=== PATIENT | male | born 1970 | race African-American/Black ===

== ENCOUNTER 2018-09-25 14:28 | Emergency (ER) | payer MEDICAID ==
[~2018-09-25] VITALS: Ht 177.8 cm; Wt 70.8 kg
--- NOTE | 2018-09-25 14:40 | NUR ---
Pt called to triage, pt not in waiting room
--- NOTE | 2018-09-25 15:15 | NUR ---
Pt called to triage, pt not in waiting room
[2018-09-25 15:58] VITALS: BP 126/82
[2018-09-25] MEDS ORDERED: CEFTRIAXONE 1 G VIAL ONE (16:28)
[2018-09-25] MEDS ORDERED: LIDOCAINE /MPF 1% VIAL 5 ML VIAL ONE (16:28)
[2018-09-25] MEDS ORDERED: CEFTRIAXONE 1 G VIAL IM ONE (16:30)
--- NOTE | 2018-09-25 16:34 | NUR ---
Patient discharged to home in stable condition. Written and verbal after care instructions given. Patient verbalizes understanding of instruction.
== END 2018-09-25 16:37 | disposition home or self-care (01) ==
LOC: ER 14:35
DX: S51.811D Laceration without foreign body of right forearm, subsequent encounter (principal); L03.113 Cellulitis of right upper limb; Z59.0 Homelessness; W17.89XD Other fall from one level to another, subsequent encounter
CPT/HCPCS: 96372; 99283; J0696; J3490

== ENCOUNTER 2019-02-11 05:11 | Emergency (ER) | payer MEDICAID ==
[~2019-02-11] VITALS: Ht 188 cm; Wt 81.6 kg
--- NOTE | 2019-02-11 05:40 | NUR ---
PT BIB SELF TO ER BED 7 C/O OF CONSTIPATION FOR 1x WEEK. PT STATES THAT 5 DAYS AGO, HE WAS AT [facility] AND HE HAS BEEN STRAINING AND HE "FEELS LIKE A WORM IS ALIVE" IN HIS RECTUM. PATIENT HAS RED TISSUE PROTRUDING FROM HIS RECTUM. PATIENT STATES THAT IT IS PAINFUL. NO SOB. BREATHING EVENLY AND UNLABORED.
--- NOTE | 2019-02-11 06:05 | NUR ---
Patient eloped from facility. ER MD notified.
[2019-05-14] MEDS ORDERED: PIPE3.379 IV (12:52)
[2019-05-14] MEDS ORDERED: LACT-209 GT (12:52)
[2019-05-14] MEDS ORDERED: VANC750P9 IV (12:52)
[2019-05-14] MEDS ORDERED: ASPI-605 PO (12:52)
[2019-05-14] MEDS ORDERED: ATOR20TA PO (12:52)
== END 2019-02-11 06:24 | disposition left against medical advice (07) ==
LOC: ER 05:13
DX: Z75.3 Unavailability and inaccessibility of health-care facilities (principal)

== ENCOUNTER 2019-02-14 19:30 | Emergency (ER) | payer MEDICAID ==
[~2019-02-14] VITALS: Ht 193 cm; Wt 80.7 kg
--- NOTE | 2019-02-14 19:50 | NUR ---
RECTAL BLEEDING X SEVERAL WKS, SEEN AT [facility] FOR TAPE WORM UNABLE TO FILL RX FOR ANTIBIOTIC, NOW FEELS RECTUM PROTRUDING. PT AAOX4, VSS. RR EVEN & UNLABORED. DENIES ANY OTHER DISCOMFORT. PT SEEN & EVAL'D BY DR. BOWEN.
--- NOTE | 2019-02-14 20:08 | NUR ---
DR. BOWEN POURED SUGAR ON PT'S PROLAPSED RECTUM, PT DELORIS WELL.
[2019-02-14] MEDS ORDERED: IV NS 0.9% 1,000 ML BAG IV ONE (20:30)
[2019-02-14] MEDS ORDERED: MORPHINE SULFATE INJ 10 MG/ML DISP.SYRIN IV ONE (20:30)
[2019-02-14] MEDS ORDERED: ONDANSETRON HCL/PF 4 MG/2 ML VIAL IV ONE (20:30)
[2019-02-14] MEDS ORDERED: MORPHINE SULFATE INJ 4 MG/ML DISP.SYRIN ONE (20:34)
[2019-02-14] MEDS ORDERED: ONDANSETRON HCL/PF 4 MG/2 ML VIAL ONE (20:34)
[2019-02-14 20:36] LABS: BASOPHILS % (AUTO) 0.4 % (0.0-2.0); EOSINOPHILS % (AUTO) 0.6 % (0.0-6.0); HEMATOCRIT 33 % (39-51); HEMOGLOBIN 10.7 g/dL (13.5-17.5); LYMPHOCYTES # (AUTO) 1.1 /CMM (0.8-4.8); LYMPHOCYTES % (AUTO) 12.7 % (20.0-44.0); MEAN CORPUSCULAR HGB CONC 33 g/dl (31.0-36.0); MEAN CORPUSCULAR VOLUME 84 fL (80-96); MONOCYTES # (AUTO) 0.6 /CMM (0.1-1.30); MONOCYTES % (AUTO) 7.1 % (2.0-12.0); NEUTROPHILS # (AUTO) 7.2 /CMM (1.8-8.9); NEUTROPHILS % (AUTO) 79.2 % (43.0-81.0); PLATELET COUNT (AUTO) 294 /CMM (150-450); RED BLOOD CELL COUNT(AUTO) 3.88 MIL/uL (4.5-6.0); WHITE BLOOD COUNT (AUTO) 9.1 K/uL (4.3-11.0)
--- NOTE | 2019-02-14 20:38 | NUR ---
MEDICATED FOR PAIN PER ERMD ORDER, PT DELORIS WELL.
[2019-02-14 20:43] LABS: CALCIUM, SERUM 8.6 mg/dL (8.5-10.1); CREATININE 1.4 mg/dL (0.6-1.3); POTASSIUM 3.9 mmol/L (3.5-5.1)
[2019-02-14 20:49] LABS: ALBUMIN 2.8 g/dL (3.4-5.0); BILIRUBIN,DIRECT 0.1 mg/dL (0.0-0.2); BILIRUBIN,TOTAL 0.3 mg/dL (0.2-1.0); TOTAL PROTEIN, SERUM 6.3 g/dL (6.4-8.2)
[2019-02-14] MEDS ORDERED: LEVOFLOXACIN 750 MG /D5W 150ML PIGGYBACK IV ONE (22:00)
[2019-02-14] MEDS ORDERED: LEVOFLOXACIN 750 MG /D5W 150ML 150 ML IV ONE (22:01)
--- NOTE | 2019-02-14 22:11 | NUR ---
PT ASLEEP, EASILY AWAKEN BY VERBAL STIMULI. PT STABLE, RECTAL PAIN 5/10, DELORIS @ THIS TIME. WILL CONT TO MONITOR.
[2019-02-14 22:12] VITALS: BP 118/83
--- NOTE | 2019-02-14 23:32 | NUR ---
TRANSFER INFO: PT ACCEPTED BY DR RUTLEDGE AT [facility] TO ER. ENNIS FOR REPORT [phone] BLS ETA TBD TRIP #[id number]
--- NOTE | 2019-02-14 23:38 | NUR ---
[facility]#[id number]
--- NOTE | 2019-02-15 00:06 | NUR ---
REPORT GIVEN TO ROEBRT ENNIS FOR CONTINUATION OF CARE.
--- NOTE | 2019-02-15 00:54 | NUR ---
AMBULANCE [facility]INTER AT [id number]
--- NOTE | 2019-02-15 02:18 | NUR ---
SKYLER AT BEDSIDE FOR TRANSPORT TO [facility].
== END 2019-02-15 02:20 | disposition short-term general hospital (02) ==
LOC: ER 19:34
DX: K62.3 Rectal prolapse (principal); K62.89 Other specified diseases of anus and rectum; D64.9 Anemia, unspecified; N28.9 Disorder of kidney and ureter, unspecified; E88.09 Other disorders of plasma-protein metabolism, not elsewhere classified
CPT/HCPCS: 36415; 74176; 80048; 80076; 83605; 83690; 85025; 85730; 87040 ×2; 87081; 96365; 96375; 99285; J1956; J2270; J2405; J7030

== ENCOUNTER 2019-04-24 09:08 | Emergency (ER) | payer MEDICAID ==
[~2019-04-24] VITALS: Ht 182.9 cm; Wt 83.9 kg
[2019-04-24 09:38] VITALS: BP 134/77
--- NOTE | 2019-04-24 10:04 | NUR ---
PATIENT A/OX4, SEEN BY DR. CALERO, PATIENT CLEARED FOR DISCHARGE, Patient given written and verbal discharge instructions. Patient verbalizes understanding of instructions. Patient is ambulatory with steady gait. Refuses offer of group home placement. Patient given list of available shelters in surrounding area. Patient refused to sign paperworks and homeless waiver, witnessed by another nurse. Provided food, clothes and tap card.
--- NOTE | 2019-04-24 11:59 | NUR ---
ARJUN GILLILAND PHONE#[phone]
[2019-05-14] MEDS ORDERED: ATOR20TA PO (12:52)
[2019-05-14] MEDS ORDERED: LACT-209 GT (12:52)
[2019-05-14] MEDS ORDERED: PIPE3.379 IV (12:52)
[2019-05-14] MEDS ORDERED: ASPI-605 PO (12:52)
[2019-05-14] MEDS ORDERED: VANC750P9 IV (12:52)
== END 2019-04-24 10:08 | disposition home or self-care (01) ==
LOC: EDBD → ER 09:08 → MERGE 09:08 → ER 10:08
DX: M54.9 Dorsalgia, unspecified (principal); G89.29 Other chronic pain; Z59.0 Homelessness

== ENCOUNTER 2019-04-24 11:59 | Inpatient (IN) | payer MEDICAID ==
[~2019-04-24] VITALS: Ht 182.9 cm; Wt 71.7 kg
--- NOTE | 2019-04-24 11:59 | NUR ---
UNABLE TO AMBULATE/DISCHARGE, pt was d/c earlier, back to bed 12, -sob, nad notd, pt on monitor, vss
--- NOTE | 2019-04-24 12:02 | NUR ---
ATTEMPTED TO D/C PATIENT, PROVIDED WITH CANE BUT WAS UNABLE TO AMBULATE. A WALKER WAS PROVIDED INSTEAD.
--- NOTE | 2019-04-24 12:07 | NUR ---
EVEN WITH THE WALKER, HE WAS NOT ABLE TO AMBULATE, DR CALERO INFORMED AN DECIDED TO ADMIT HIM FOR PLACEMENT/REHAB
[2019-04-24 12:26] LABS: BASOPHILS # (AUTO) 0.1 /CMM (0.0-0.2); BASOPHILS % (AUTO) 0.5 % (0.0-2.0); EOSINOPHILS % (AUTO) 0.1 % (0.0-6.0); HEMATOCRIT 42 % (39-51); HEMOGLOBIN 13.5 g/dL (13.5-17.5); LYMPHOCYTES # (AUTO) 0.6 /CMM (0.8-4.8); LYMPHOCYTES % (AUTO) 4.1 % (20.0-44.0); MEAN CORPUSCULAR HGB CONC 32 g/dl (31.0-36.0); MEAN CORPUSCULAR VOLUME 86 fL (80-96); MONOCYTES # (AUTO) 0.7 /CMM (0.1-1.30); MONOCYTES % (AUTO) 5.2 % (2.0-12.0); NEUTROPHILS # (AUTO) 12.5 /CMM (1.8-8.9); NEUTROPHILS % (AUTO) 90.1 % (43.0-81.0); PLATELET COUNT (AUTO) 356 /CMM (150-450); WHITE BLOOD COUNT (AUTO) 13.8 K/uL (4.3-11.0)
[2019-04-24 12:35] LABS: CREATININE 1.3 mg/dL (0.6-1.3); POTASSIUM 4.2 mmol/L (3.5-5.1)
[2019-04-24 12:36] LABS: CALCIUM, SERUM 9.3 mg/dL (8.5-10.1)
[2019-04-24 12:41] LABS: ALBUMIN 3.3 g/dL (3.4-5.0); BILIRUBIN,DIRECT 0.1 mg/dL (0.0-0.2); BILIRUBIN,TOTAL 0.5 mg/dL (0.2-1.0); TOTAL PROTEIN, SERUM 7.8 g/dL (6.4-8.2)
--- NOTE | 2019-04-24 12:44 | NUR ---
CALLED DAVID P[facility] IMELDA HUGHES
--- NOTE | 2019-04-24 13:55 | NUR ---
report given to henry rucker for bright pt will be transported to 2nd floor
[2019-04-24 14:20] VITALS: BP 131/97
--- NOTE | 2019-04-24 14:20 | NUR ---
RECEIVED PATIENT FROM ER VIA RIVANHOE. PATIENT IS A/OX3-4, ABLE TO MAKE NEEDS KNOWN. NOT IN ANY FORM OF DISTRESS, NO SOB, DENIED PAIN OR DISCOMFORT AT THIS TIME. WAS ABLE TO SLIDE AND ROLL HIMSELF FROM BED TO THE GURNEY. UNABLE TO AMBULATE DUE TO WEAKNESS. LEFT UPPER AND LOWER EXTREMITIES SEVERE WEAKNESS, AND LEFT FACIAL DROOP NOTED AT BASELINE. PER PATIENT, HE HAD A STROKE BUT CANT REMEMBER THE EXACT TIME, LEFT SIDED DEFICIT NOTED. PATIENT SPEECH IS CLEAR. NO DIFFICULTY IN SWALLOWING, PATIENT ATE EGG SANDWICHES AND DRANK JUICE IN THE EMERGENCY ROOM. SKIN ASSESSMENT DONE: MULTIPLE SCAR,SCAB, AND BRUISES; SKIN ABRASION AND BRUISE NOTED ON LEFT HIPS. BELONGINGS CHECKED, AND NOTED ON THE BELONGINGS FORM. SITUATED PATIENT IN THE ROOM AND INSTRUCTED TO USE THE CALL LIGHT IF ASSISTANCE IS NEEDED. NO IV ACCESS NOTED. KEPT PATIENT SAFE AND COMFORTABLE. BED IN LOW/LOCKED POSITION, SDIERAILS UPX2, CALL LIGHT IN REACH. WILL CONT TO MONITOR ACCORDINGLY.
[2019-04-24] MEDS ORDERED: Z GUARD REMEDY 2 OZ OINT TP PRN (15:30)
[2019-04-24] MEDS ORDERED: ONDANSETRON HCL/PF 4 MG/2 ML VIAL IVP PRN (15:30)
[2019-04-24 16:00] VITALS: BP 105/72
--- NOTE | 2019-04-24 16:46 | NUR ---
rn notes: Family contact number Jose Luis (Mother) [phone]
--- NOTE | 2019-04-24 16:48 | NUR ---
Dr Alvarado at bedside assessing the patient.
[2019-04-24] MEDS: ENOXAPARIN SODIUM 40 MG/0.4 ML DISP.SYRIN SQ SCH (18:08)
[2019-04-24] MEDS: ACETAMINOPHEN 325 MG TABLET PO PRN (18:09)
[2019-04-24] MEDS: IV NS 0.9% 1,000 ML IV PRN (18:14)
--- NOTE | 2019-04-24 19:30 | NUR ---
RN CLOSING NOTES PATIENT IN STABLE CONDITION. ALL NEEDS ATTENDED AND PROVIDED. ALL DUE MEDICATIONS GIVEN ORDERED. TURNED AND REPOSITIONED PATIENT EVERY 2HRS AND NEEDED. KEPT PATIENT SKIN CLEAN AND DRY. BED IN LOW/LOCKED POSITION, SDIERAILS UPX2, CALL LIGHT IN REACH. ENDORSED ACCORDINGLY.
--- NOTE | 2019-04-24 20:50 | NUR ---
iv found displaced on right hand leaking with minor bleding. no redness or swelling noted to right hand iv removed. new iv 22 gauge started to right fa dressing applied iv flusehed patent intact with blood return. no s/s of complications to right fa will cont to monitor. iv sleev/sock applied to help keep line in place.
[2019-04-25] MEDS: ACETAMINOPHEN 325 MG TABLET PO PRN ×2 (06:00→21:39)
--- NOTE | 2019-04-25 06:21 | NUR ---
tyelenol administered per patient requeswt for weeks rated 3/10.
--- NOTE | 2019-04-25 06:57 | NUR ---
RN CLOSING NOTES PATIENT LAYING IN BED IN NO APPARENT DISTRESS. PATIENT HAS GOOD APPETITE AND HAD 4 SNACKS LAST NIGHT. PATIENT ASKED FOR URINE SAMPLE THIS AM. PATIENT HAD 2 INCOUNTINENCE LAST NIGHT BUT REPORTS THAT HE IS CONTINENT. NO SAMPLE COLLECTED YET CUP AT THE BEDSIDE. PATIENT HAS ABILITY TO TURN AND REPOSITION SELF. SKIN KEPT PATIENT SKIN CLEAN AND DRY. BED IN LOW/LOCKED POSITION, SDIERAILS UPX2, CALL LIGHT IN REACH.
--- NOTE | 2019-04-25 07:45 | NUR ---
rn opening notes Patient received on room air, no sob noted, denies pain at this time. Patient a/O x3. R FA 22 running at NS @ 75 ml per hour at this time. Awaiting for PT eval. Bed at the lowest setting, call light within reach, side rails up x2.
[2019-04-25 08:00] VITALS: BP 126/83
[2019-04-25 08:24] LABS: BASOPHILS % (AUTO) 0.2 % (0.0-2.0); EOSINOPHILS % (AUTO) 0.3 % (0.0-6.0); HEMATOCRIT 37 % (39-51); HEMOGLOBIN 11.6 g/dL (13.5-17.5); LYMPHOCYTES # (AUTO) 0.8 /CMM (0.8-4.8); LYMPHOCYTES % (AUTO) 5.3 % (20.0-44.0); MEAN CORPUSCULAR HGB CONC 32 g/dl (31.0-36.0); MEAN CORPUSCULAR VOLUME 84 fL (80-96); MONOCYTES # (AUTO) 1.1 /CMM (0.1-1.30); MONOCYTES % (AUTO) 7.4 % (2.0-12.0); NEUTROPHILS # (AUTO) 12.3 /CMM (1.8-8.9); NEUTROPHILS % (AUTO) 86.8 % (43.0-81.0); PLATELET COUNT (AUTO) 283 /CMM (150-450); RED BLOOD CELL COUNT(AUTO) 4.35 MIL/uL (4.5-6.0); WHITE BLOOD COUNT (AUTO) 14.2 K/uL (4.3-11.0)
[2019-04-25 08:51] LABS: ALBUMIN 2.5 g/dL (3.4-5.0); BILIRUBIN,TOTAL 0.4 mg/dL (0.2-1.0); CALCIUM, SERUM 8.3 mg/dL (8.5-10.1); CREATININE 1.1 mg/dL (0.6-1.3); MAGNESIUM 1.8 mg/dL (1.8-2.4); PHOSPHORUS 3.2 mg/dL (2.5-4.9); TOTAL PROTEIN, SERUM 6.3 g/dL (6.4-8.2)
[2019-04-25 10:00] LABS: THYROID STIMULATING HORMONE 2.507 uIU/mL (0.358-3.74)
--- NOTE | 2019-04-25 15:40 | NUR ---
M/S RN NOTES RECEIVED A CALL FROM YANA NEAL AT [facility] FOR POSITIVE MRSA RIGHT NARES. CONTACT ISOLATION INITIATED
[2019-04-25 16:00] VITALS: BP 128/85
--- NOTE | 2019-04-25 17:59 | NUR ---
rn closing notes Patient remains on room air, no sob noted, lethargic and a/o x2. Acts confused at times and wiggles in his bed at times. R FA 22 and patient tries to remove it. Bed at the lowest setting, call light within reach, side rails up x2. Will give report to NOC RN for NATALYA bedside.
--- NOTE | 2019-04-25 19:30 | NUR ---
MS RN OPENING NOTE RECEIVED PATIENT ON CONTACT ISOLATION FOR MRSA OF RIGHT NARE. PATIENT IN BED. A/OX2. TOLERATING ROOM AIR. RESPIRATIONS ARE EVEN AND UNLABORED. NO S/S SOB NOTED. DENIES ANY PAIN AT THIS TIME. IV ACCESS IN RFA#[address] NEW IV. BED IS LOW AND LOCKED. HOB FLAT, SIDE RAILS UP X3, BED ALARM ON. CALL LIGHT WITHIN REACH. WILL CONTINUE TO MONITOR.
[2019-04-25 20:00] VITALS: BP 114/61
[2019-04-25 20:39] VITALS: BP 114/61
[2019-04-25] MEDS: ENOXAPARIN SODIUM 40 MG/0.4 ML DISP.SYRIN SQ SCH (21:27)
--- NOTE | 2019-04-25 21:45 | NUR ---
MS RN NOTE ADMINISTERED PRN TYLENOL 650MG FOR C/O HEADACHE. WILL CONTINUE TO MONITOR.
--- NOTE | 2019-04-25 21:46 | NUR ---
MS RN NOTE CALLED DR. SUÁREZ TO OBTAIN ORDER FOR ATIVAN D/T PATIENT IS RESTLESS. MD TELEPHONE ORDERED ATIVAN 1MG IV Q8H PRN. ORDER READ BACK, NOTED, AND CARRIED OUT.
[2019-04-25] MEDS: LORAZEPAM INJ 2 MG/ML VIAL IV PRN (22:08)
--- NOTE | 2019-04-25 22:08 | NUR ---
MS RN NOTE REMOVED ATIVAN 1MG FROM OMNI CELL AND TUAN FROM IT TO GIVE MED, PLACED WASTE IN PHARMACEUTICAL WASTE WITHOUT SCANNING. FORGOT TO SCAN MED, OPENED OMNI CELL AGAIN, DID NOT REMOVE ATIVAN AND ONLY SCANNED IT BUT WAS NOT ABLE TO RETURN OR UNDO D/T DID NOT REMOVED FROM [facility]IDGE.
--- NOTE | 2019-04-25 22:11 | NUR ---
MS RN NOTE ADMINISTERED PRN ATIVAN 1MG FOR RESTLESSNESS. WILL CONTINUE TO MONITOR.
[2019-04-25] MEDS: IV NS 0.9% 1,000 ML IV PRN (23:16)
--- NOTE | 2019-04-26 05:03 | NUR ---
MS RN NOTE TRIED MULTIPLE TIMES TO OBTAIN URINE SAMPLE FOR UA. PATIENT IS NOT ABLE TO HOLD URINAL ALONE, STATES NEEDS TO URINATE BUT JUANITA NOT IF I AM THERE. URINATES FINE WHEN IN DIAPER. PATIENT REFUSING STRAIGHT CATH MULTIPLE TIMES. WILL CONTINUE TO ATTEMPT TO OBTAIN URINE.
--- NOTE | 2019-04-26 06:59 | NUR ---
MS RN CLOSING NOTE PATIENT REMAINS ON CONTACT ISOLATION FOR MRSA OF RIGHT NARE. PATIENT IN BED. A/OX2. TOLERATING ROOM AIR. RESPIRATIONS ARE EVEN AND UNLABORED. NO SOB NOTED. NO C/O PAIN. IV ACCESS IN LEFT HAND #20 PATENT AND SALINE LOCKED BED IS LOW AND LOCKED. HOB FLAT, SIDE RAILS UP X3, BED ALARM ON. CALL LIGHT WITHIN REACH. WILL ENDORSE TO NEXT SHIFT.
--- NOTE | 2019-04-26 07:15 | NUR ---
MS RN INITIAL NOTES Report received at bedside. Patient received in bed, asleep, easily aroused. On contact isolation for MRSA nares. Safety measures in place. Will continue to monitor and assess patient.
--- NOTE | 2019-04-26 07:52 | NUR ---
WOUND CARE CONSULT: PT PRESENTS WITH DRY ABRASIONS AND SCARS TO HIPS, LEGS PRESENT ON ADMISSION. PT MOVES ALMOST CONSTANTLY IN BED. WILL SEE PRN. Addendum: 04/26/19 at 0753 by FRANCISCO LOPEZ WNDNU Amended: Links added.
[2019-04-26] MEDS: ACETAMINOPHEN 325 MG TABLET PO PRN (08:02)
[2019-04-26] MEDS: LORAZEPAM INJ 2 MG/ML VIAL IV PRN (08:02)
--- NOTE | 2019-04-26 08:09 | NUR ---
MS RN PRN NOTES Patient is becoming restless, yelling and trying to get up from bed with LEFT sided CVA/weakness. Also, patient complaints of headache. Will continue to monitor and assess patient
[2019-04-26] MEDS: MUPIROCIN OINT 2% 22 GM TUBE SCH ×2 (12:41→20:25)
[2019-04-26] MEDS: LISINOPRIL (5MG) 5 MG TABLET PO SCH (12:41)
[2019-04-26] MEDS: CARVEDILOL 6.25 MG TABLET PO SCH ×2 (12:41→20:25)
[2019-04-26 16:13] VITALS: BP 117/86
--- NOTE | 2019-04-26 18:40 | NUR ---
MS RN CLOSING NOTES Patient remained in bed, intermittenly sleeping, easily aroused, verbally responsive. Alert and oriented x1. On safety precaution and close monitoring for fall prevention. Have episodes of restlessness and confusion: urinated on the floor. Unable to obtain urine sample for UA - pt unable to follow commands. On continuous IV fluids for hydration. Remained on contact isolation for MRSA w/ bactroban oint nares application Q12H. All due meds given and tolerated. No S/S of distress. No SOB/labored breathing noted. Kept patient clean, dry and comfortable. Provided assistance as needed. Safety measures in place. Bed in lowest position with bed alarm on and call light within reach. Will continue to monitor and assess patient. Will endorse to oncneal shift nurse. Addendum: 04/26/19 at 1939 by DIEGO TAVERA RN Endorsed to RN
--- NOTE | 2019-04-26 19:22 | NUR ---
RN OPENING NOTES RECEIVED PATIENT AWAKE IN BED. A/O X1. NO SIGNS OF DISTRESS OR DISTRESS OR DISCOMFORT. BREATHING EVEN AND UNLABORED. IV ACCESS IN L HAND WITH NS INFUSING, PATENT AND INTACT, NO SIGNS OF REDNESS OR INFILTRATION. BED IN LOW LOCKED POSITION WITH SIDE RAILS X3. CALL LIGHT WITHIN REACH. WILL CONTINUE TO MONITOR.
[2019-04-26 20:07] VITALS: BP_SYST 115; BP_SYST 120; BP_DIAS 68; BP_DIAS 86
[2019-04-26] MEDS: ENOXAPARIN SODIUM 40 MG/0.4 ML DISP.SYRIN SQ SCH (20:33)
[2019-04-27] MEDS: IV NS 0.9% 1,000 ML IV PRN ×2 (01:29→22:48)
--- NOTE | 2019-04-27 07:15 | NUR ---
RN NOTES PATIENT RESTING COMFORTABLY IN BED, EASILY AORUSABLE. A/O X1. NO SIGNS OF DISTRESS OR DISTRESS OR DISCOMFORT. BREATHING EVEN AND UNLABORED. IV ACCESS IN L HAND WITH NS INFUSING, PATENT AND INTACT, NO SIGNS OF REDNESS OR INFILTRATION. ALL NEEDS MET. NO SIGNIFICANT CHANGES THROUGH THE NIGHT. PATIENT KEPT CLEAN DRY AND COMFORTABLE. BED IN LOW LOCKED POSITION WITH SIDE RAILS X3. CALL LIGHT WITHIN REACH. WILL ENDORSE TO AM SHIFT FOR NATALYA.
[2019-04-27 08:00] VITALS: BP 148/55
--- NOTE | 2019-04-27 08:00 | NUR ---
MS RN OPENING NOTES Received Patient awake and resting in bed. A/O x 1. VS stable with no acute distress. Breathing even and unlabored on room air with no respiratory distress. Denies pain. No signs and symptoms of pain. 20g PIV on Left Hand clean, intact, patent and flushing well with NS infusing at 75ml/hr. Isolation precautions in place. Safety precautions in place. Bed locked and set to lowest position with side rails x 3 up. All needs rendered at this time. Call light within reach. Will continue to monitor.
[2019-04-27] MEDS: CARVEDILOL 6.25 MG TABLET PO SCH ×2 (09:22→20:29)
[2019-04-27] MEDS: LISINOPRIL (5MG) 5 MG TABLET PO SCH (09:24)
[2019-04-27] MEDS: MUPIROCIN OINT 2% 22 GM TUBE SCH ×2 (09:24→20:30)
--- NOTE | 2019-04-27 10:38 | NUR ---
MS RN NOTES Patient pulled out intact 20g PIV on Left Hand. Patient in stable condition. Will continue to monitor.
[2019-04-27 13:31] LABS: BASOPHILS # (AUTO) 0.1 /CMM (0.0-0.2); BASOPHILS % (AUTO) 0.6 % (0.0-2.0); EOSINOPHILS % (AUTO) 0.8 % (0.0-6.0); HEMATOCRIT 38 % (39-51); HEMOGLOBIN 12.5 g/dL (13.5-17.5); LYMPHOCYTES # (AUTO) 0.8 /CMM (0.8-4.8); LYMPHOCYTES % (AUTO) 7.8 % (20.0-44.0); MEAN CORPUSCULAR HGB CONC 33 g/dl (31.0-36.0); MEAN CORPUSCULAR VOLUME 84 fL (80-96); MONOCYTES # (AUTO) 0.6 /CMM (0.1-1.30); MONOCYTES % (AUTO) 5.8 % (2.0-12.0); PLATELET COUNT (AUTO) 304 /CMM (150-450); RED BLOOD CELL COUNT(AUTO) 4.55 MIL/uL (4.5-6.0); WHITE BLOOD COUNT (AUTO) 10.6 K/uL (4.3-11.0)
[2019-04-27 13:47] LABS: CREATININE 0.9 mg/dL (0.6-1.3); PHOSPHORUS 3.9 mg/dL (2.5-4.9); POTASSIUM 3.8 mmol/L (3.5-5.1)
--- NOTE | 2019-04-27 14:33 | NUR ---
MS RN NOTES Patient throwing stool and wet diaper on floor and to nurses. Patient removing linen and trying to get out of bed. Repositioned Patient. Reoriented and redirected Patient. Patient A/O x 1 and confused. Notified Dina SUPERVISOR PIGMENT MAKING. Per SUPERVISOR PIGMENT MAKING, may order bilateral soft wrist restraints. Order noted and carried out. Patients mom notified. Patient in stable condition. Will continue to monitor.
--- NOTE | 2019-04-27 14:34 | NUR ---
MS RN NOTES Per Dina YEUNG, psych consult for Patient. Order noted and carried out. Patient in stable condition. Will continue to monitor.
--- NOTE | 2019-04-27 15:57 | NUR ---
MS RN NOTES Faxed Facesheet to [employer] at this time for Psych Consult.
[2019-04-27 16:00] VITALS: BP 116/73
--- NOTE | 2019-04-27 17:50 | NUR ---
MS RN NOTES Collected and obtained urine via In N Out Cath per Dina YEUNG. Patient tolerated well. Patient in stable condition. Will continue to monitor.
--- NOTE | 2019-04-27 18:08 | NUR ---
MS RN NOTES Inserted 18g PIV on RAC clean, intact, patent, and flushing well. Patient tolerated well. Patient in stable condition. Will continue to monitor.
--- NOTE | 2019-04-27 18:35 | NUR ---
MS RN CLOSING NOTES Patient awake and resting in bed. A/O x 1. VS stable with no acute distress. Breathing even and unlabored on room air with no respiratory distress. Denies pain. No signs and symptoms of pain. 18g PIV on RAC clean, intact, patent and flushing well with NS infusing at 75ml/hr. Bilateral soft wrist restraints intact with clean, warm and intact skin. Isolation precautions in place. Safety precautions in place. Bed locked and set to lowest position with side rails x 3 up. All needs rendered at this time. Call light within reach. Will endorse plan of care to oncoming shift.
--- NOTE | 2019-04-27 19:05 | NUR ---
MS RN OPENING NOTES: RECEIVED PT ON ROOM AIR AND IS TOLERATING WELL. PT DOES NOT APPEAR TO BE ABLE TO OPEN HIS EYES BUT IS ALERT TO SELF ONLY. PT MUMBLES AND KEEPS SAYING HE NEEDS TO URINATE OR DEFECATE. PT HAS BILATERAL SOFT WRIST RESTRAINTS. PT HAS IV ON R AC AND IS BEING INFUSED WITH IV NS AT 75ML/HR. BED KEPT IN LOW, LOCKED POSITION, AND SIDE RAILS X 3 UP FOR SAFETY PRECAUTIONS. BED ALARM ACTIVATED WELL. CONTACT ISOLATION PRECAUTIONS MAINTAINED. WILL CONTINUE TO MONITOR PT.
[2019-04-27 20:47] VITALS: BP 113/72
[2019-04-27] MEDS: ENOXAPARIN SODIUM 40 MG/0.4 ML DISP.SYRIN SQ SCH (20:50)
[2019-04-27 21:29] LABS: APPEARANCE,URINE CLEAR (CLEAR); BILIRUBIN,URINE NEGATIVE (NEGATIVE); BLOOD, URINE TRACE-INTA Ery/uL (NEGATIVE); COLOR,URINE YELLOW (YELLOW); KETONES,URINE NEGATIVE (NEGATIVE); LEUKOCYTE ESTERASE ,URINE MODERATE (NEGATIVE); NITRITE, URINE NEGATIVE (NEGATIVE); PROTEIN,URINE NEGATIVE (NEGATIVE); UGLUCOSE NEGATIVE (NEGATIVE)
[2019-04-27 21:41] LABS: BACTERIA,URINE 2+ /HPF (None Seen); MUCUS,URINE Moderate /LPF (None Seen); SQUAMOUS EPITHELIAL CELL,UR Moderate /HPF (None Seen); URINE AMORPHOUS URATE Moderate /HPF (None Seen)
--- NOTE | 2019-04-28 05:47 | NUR ---
RN NOTES: SCRATCH POLISHER WILL SEND ANOTHER SCRATCH POLISHER AT A LATER TIME.
--- NOTE | 2019-04-28 07:30 | NUR ---
RN MS NOTES PT IN BED, ALERT TO SELF, VERBALLY RESPONSIVE, ASSISTED WITH BREAKFAST, CALL LIGHT WITHIN REACH, ISOLATION PRECAUTIONS OBSERVED, KEPT CLEAN AND DRY, NEEDS ATTENDED.
[2019-04-28 08:00] VITALS: BP_SYST 119; BP_SYST 133; BP_DIAS 60; BP_DIAS 79
[2019-04-28] MEDS: LISINOPRIL (5MG) 5 MG TABLET PO SCH (08:35)
[2019-04-28] MEDS: CARVEDILOL 6.25 MG TABLET PO SCH ×2 (08:35→21:33)
[2019-04-28] MEDS: SPIRONOLACTONE 25 MG TABLET PO SCH (08:35)
[2019-04-28] MEDS: MUPIROCIN OINT 2% 22 GM TUBE SCH ×2 (08:38→21:35)
[2019-04-28 10:28] LABS: BASOPHILS % (AUTO) 0.3 % (0.0-2.0); EOSINOPHILS % (AUTO) 0.5 % (0.0-6.0); HEMATOCRIT 41 % (39-51); HEMOGLOBIN 13.1 g/dL (13.5-17.5); LYMPHOCYTES # (AUTO) 0.8 /CMM (0.8-4.8); LYMPHOCYTES % (AUTO) 8.2 % (20.0-44.0); MEAN CORPUSCULAR HGB CONC 32 g/dl (31.0-36.0); MEAN CORPUSCULAR VOLUME 85 fL (80-96); MONOCYTES # (AUTO) 0.6 /CMM (0.1-1.30); NEUTROPHILS # (AUTO) 8.6 /CMM (1.8-8.9); PLATELET COUNT (AUTO) 343 /CMM (150-450); RED BLOOD CELL COUNT(AUTO) 4.86 MIL/uL (4.5-6.0); WHITE BLOOD COUNT (AUTO) 10.1 K/uL (4.3-11.0)
[2019-04-28 10:47] LABS: CALCIUM, SERUM 8.9 mg/dL (8.5-10.1); PHOSPHORUS 3.9 mg/dL (2.5-4.9)
[2019-04-28] MEDS ORDERED: LEVOFLOXACIN (750 MG) 750 MG TABLET PO SCH (12:00)
[2019-04-28] MEDS: ACETAMINOPHEN 325 MG TABLET PO PRN ×2 (12:05→18:05)
[2019-04-28] MEDS: LEVOFLOXACIN (250MG) 250 MG TABLET PO SCH (13:07)
--- NOTE | 2019-04-28 13:17 | NUR ---
RN MS NOTES PT IN BED, RESTING, ABLE TO MAKE NEEDS KNOWN, ABLE TO OPEN EYES AT TIMES, WITH EPISODES OF RESTLESSNESS, NO COMPLAINT OF PAIN, BREATHING PATTERN NORMAL, SEEN BY DR. RYAN, SAFETY AND ISOLATION PRECAUTIONS OBSERVED, COMPLIANT WITH MEDS, NEEDS ATTENDED.
--- NOTE | 2019-04-28 15:06 | NUR ---
Social service consult for homelessness and drug use. Per MD notes, pt is a 51-year-old male with a PMHx of HTN, CVA, reported blood clot requiring filter, rectal prolapse. Per report he had presented to the ER and had refused to ambulate and admitted. Per report history of IV drug use but stopped about 2 years ago. COMPUTER PERIPHERAL EQUIPMENT OPERATOR attempted to meet with the pt., however pt appears withdrawn and does not answer any questions. Pt was moaning the entire time. COMPUTER PERIPHERAL EQUIPMENT OPERATOR obtained history from pt's RN. In speaking with pt's bedside RN, pt has been agitated prior and restless. Pt does not move LUE and weak LLE. Pt is not senior care placement appropriate at this time. Per RN, pt has been refusing PT evaluation.
[2019-04-28 16:00] VITALS: BP 119/76
--- NOTE | 2019-04-28 18:15 | NUR ---
RN MS NOTES PT IN BED, AWAKE, ALERT TO SELF, BEING ASSISTED BY MERCHANDISING PROFESSOR WITH DINNER, TOLERATES WELL, ABLE TO MAKE NEEDS KNOWN, PM CARE PROVIDED, REPOSITIONED FOR COMFORT, KEPT CLEAN, DRY AND COMFORTABLE.
--- NOTE | 2019-04-28 19:22 | NUR ---
RN OPENING NOTES RECEIVED PATIENT AWAKE IN BED. A/O X1. NO SIGNS OF DISTRESS OR DISTRESS OR DISCOMFORT. BREATHING EVEN AND UNLABORED. IV ACCESS IN RAC, PATENT AND INTACT, NO SIGNS OF REDNESS OR INFILTRATION.HAS R WRIST RESTRAINT, WITH NO SKIN BREAKDOWN OR CIRCULATION ISSUES NOTED. BED IN LOW LOCKED POSITION WITH SIDE RAILS X3. CALL LIGHT WITHIN REACH. WILL CONTINUE TO MONITOR.
[2019-04-28 20:00] VITALS: BP 113/82
[2019-04-28] MEDS: QUETIAPINE FUMARATE 100 MG TABLET PO SCH (21:33)
[2019-04-28] MEDS: ENOXAPARIN SODIUM 40 MG/0.4 ML DISP.SYRIN SQ SCH (21:34)
--- NOTE | 2019-04-29 07:05 | NUR ---
RN CLOSING NOTES PATIENT RESTING IN BED, EASILY AROUSABLE. A/O X1. NO SIGNS OF DISTRESS OR DISTRESS OR DISCOMFORT. BREATHING EVEN AND UNLABORED. IV ACCESS IN RAC, PATENT AND INTACT, NO SIGNS OF REDNESS OR INFILTRATION. HAS R WRIST RESTRAINT, WITH NO SKIN BREAKDOWN OR CIRCULATION ISSUES NOTED. ALL NEEDS MET. NO SIGNIFICANT CHANGES THROUGH THE NIGHT. PATIENT KEPT CLEAN DRY AND COMFORTABLE. BED IN LOW LOCKED POSITION WITH SIDE RAILS X3. CALL LIGHT WITHIN REACH. WILL ENDORSE TO AM SHIFT FOR NATALYA.
[2019-04-29 08:00] VITALS: BP 123/73
[2019-04-29 08:14] LABS: BASOPHILS # (AUTO) 0.1 /CMM (0.0-0.2); BASOPHILS % (AUTO) 0.5 % (0.0-2.0); HEMATOCRIT 41 % (39-51); HEMOGLOBIN 13.1 g/dL (13.5-17.5); LYMPHOCYTES # (AUTO) 1.1 /CMM (0.8-4.8); LYMPHOCYTES % (AUTO) 10.4 % (20.0-44.0); MEAN CORPUSCULAR HGB CONC 32 g/dl (31.0-36.0); MEAN CORPUSCULAR VOLUME 85 fL (80-96); MONOCYTES # (AUTO) 0.9 /CMM (0.1-1.30); MONOCYTES % (AUTO) 9.4 % (2.0-12.0); NEUTROPHILS # (AUTO) 7.9 /CMM (1.8-8.9); NEUTROPHILS % (AUTO) 78.7 % (43.0-81.0); PLATELET COUNT (AUTO) 318 /CMM (150-450); RED BLOOD CELL COUNT(AUTO) 4.78 MIL/uL (4.5-6.0); WHITE BLOOD COUNT (AUTO) 10.1 K/uL (4.3-11.0)
[2019-04-29 08:19] LABS: CALCIUM, SERUM 9.3 mg/dL (8.5-10.1); CREATININE 0.8 mg/dL (0.6-1.3); MAGNESIUM 2.1 mg/dL (1.8-2.4); PHOSPHORUS 3.9 mg/dL (2.5-4.9); POTASSIUM 4.2 mmol/L (3.5-5.1)
[2019-04-29] MEDS: QUETIAPINE FUMARATE 100 MG TABLET PO SCH (09:00)
[2019-04-29] MEDS: MUPIROCIN OINT 2% 22 GM TUBE SCH ×2 (09:56→21:23)
[2019-04-29] MEDS: CARVEDILOL 6.25 MG TABLET PO SCH ×2 (09:57→21:00)
[2019-04-29] MEDS: LISINOPRIL (5MG) 5 MG TABLET PO SCH (09:57)
[2019-04-29] MEDS: SPIRONOLACTONE 25 MG TABLET PO SCH (09:57)
--- NOTE | 2019-04-29 10:00 | NUR ---
MS RN NOTES-- SEROQUEL NOT GIVEN D/T PT BEING DROWSY. PAUAL RYAN NP MADE AWARE.
[2019-04-29] MEDS: LEVOFLOXACIN (250MG) 250 MG TABLET PO SCH (12:59)
[2019-04-29] MEDS ORDERED: QUETIAPINE FUMARATE 25 MG TABLET PO SCH (17:00)
--- NOTE | 2019-04-29 18:28 | NUR ---
MS RN END OF SHIFT SUMMARY PT REMAINS DROWSY. AROUSABLE TO TOUCH AND NAME. AFEBRILE, RESPIRATIONS ARE EVEN AND UNLABORED, NOT IN ANY ACUTE DISTRESS NOTED. NO FACIAL GRIMACING OR MOANING. PT WAS SEEN BY DR. JOEL AND DECREASED SEROQUEL DOSAGE. PT WAS ALSO SEEN BY DR. WIN, AWAITING LIFE VEST. TURN AND REPOSITIONED Q1H, WITH SOFT RESTRAINTS TO RIGHT WRIST, CHECKED FOR SKIN AND CIRCULATION. PT ABLE TO TOLERATE PO W/ NO N/V, STILL AT RISK FOR ASPIRATION. ALL NEEDS MET AND RENDERED. SAFETY MEASURES ARE IN PLACE. WILL MONITOR AND CONTINUE POC.
--- NOTE | 2019-04-29 19:30 | NUR ---
MS RN OPENING NOTE RECEIVED PATIENT ON CONTACT ISOLATION FOR MRSA OF RIGHT NARE. PATIENT IN BED. A/OX1. TOLERATING ROOM AIR. RESPIRATIONS ARE EVEN AND UNLABORED. NO S/S SOB NOTED. DENIES ANY PAIN AT THIS TIME. IN NO APPARENT DISTRESS. IV ACCESS IN RAC#18 PATENT AND SALINE LOCKED. RESTRAINT NOTED ON RIGHT SOFT WRIST, GOOD CAP REFILL, 2 FINGER BREATHS OF ROOM BETWEEN SKIN AND RESTRAINT, NO REDNESS NOTED AT THIS TIME. BED IS LOW AND LOCKED, HOB SEMI THOMAS, SIDE RAILS UP X3, BED ALARM ON. CALL LIGHT WITHIN REACH. WILL CONTINUE TO MONITOR.
[2019-04-29 20:00] VITALS: BP 135/90
[2019-04-29 20:07] VITALS: BP 135/90
[2019-04-29] MEDS: ENOXAPARIN SODIUM 40 MG/0.4 ML DISP.SYRIN SQ SCH (21:23)
[2019-04-29] MEDS: QUETIAPINE FUMARATE 25 MG TABLET PO SCH (21:37)
[2019-04-30] VITALS (7 sets, daily range): BP systolic 113–125; BP diastolic 70–86
[2019-04-30 06:22] LABS: BASOPHILS % (AUTO) 0.4 % (0.0-2.0); EOSINOPHILS % (AUTO) 0.3 % (0.0-6.0); HEMATOCRIT 42 % (39-51); HEMOGLOBIN 13.5 g/dL (13.5-17.5); LYMPHOCYTES % (AUTO) 9.5 % (20.0-44.0); MEAN CORPUSCULAR HGB CONC 32 g/dl (31.0-36.0); MEAN CORPUSCULAR VOLUME 85 fL (80-96); MONOCYTES # (AUTO) 0.5 /CMM (0.1-1.30); MONOCYTES % (AUTO) 5.2 % (2.0-12.0); NEUTROPHILS # (AUTO) 8.6 /CMM (1.8-8.9); NEUTROPHILS % (AUTO) 84.6 % (43.0-81.0); PLATELET COUNT (AUTO) 380 /CMM (150-450); RED BLOOD CELL COUNT(AUTO) 4.95 MIL/uL (4.5-6.0); WHITE BLOOD COUNT (AUTO) 10.1 K/uL (4.3-11.0)
--- NOTE | 2019-04-30 06:28 | NUR ---
MS RN CLOSING NOTE PATIENT REMAINS ON CONTACT ISOLATION FOR MRSA OF RIGHT NARE. PATIENT IN BED. A/OX1. TOLERATING ROOM AIR. RESPIRATIONS ARE EVEN AND UNLABORED. NO SOB NOTED. NO C/O PAIN THROUGHOUT SHIFT. NO DISTRESS NOTED. IV ACCESS MAINTAINED IN RAC#18 PATENT AND SALINE LOCKED. RESTRAINT REMAINS ON RIGHT SOFT WRIST, GOOD CAP REFILL, 2 FINGER BREATHS OF ROOM BETWEEN SKIN AND RESTRAINT, NO REDNESS, NO AGITATION THROUGHOUT NIGHT. BED REMAINS LOW AND LOCKED, HOB SEMI THOMAS, SIDE RAILS UP X3, BED ALARM ON. CALL LIGHT WITHIN REACH. WILL ENDORSE TO NEXT SHIFT.
[2019-04-30 06:39] LABS: CALCIUM, SERUM 9.5 mg/dL (8.5-10.1); PHOSPHORUS 4.2 mg/dL (2.5-4.9); POTASSIUM 3.9 mmol/L (3.5-5.1)
[2019-04-30] MEDS: LISINOPRIL (5MG) 5 MG TABLET PO SCH (08:03)
[2019-04-30] MEDS: CARVEDILOL 6.25 MG TABLET PO SCH ×2 (08:04→21:13)
[2019-04-30] MEDS: SPIRONOLACTONE 25 MG TABLET PO SCH (08:04)
[2019-04-30] MEDS: MUPIROCIN OINT 2% 22 GM TUBE SCH ×2 (08:34→21:16)
--- NOTE | 2019-04-30 10:03 | NUR ---
Fan, disease case manager rn consulted with ELEMENTARY SCHOOL DIRECTOR regarding pt needing a life vest and the Life vest company [employer], requesting a SW note stating " pt will follow protocol in using the vest appropriately." ELEMENTARY SCHOOL DIRECTOR spoke with [employer] equal opportunity representative Howard and informed him that pt. is alert and oriented x 1 and is not able to make that decision regarding a life vest compliance at this time. Per Howard, [facility] will only fund for the life vest if pt is able to make a decision that he will comply with wearing the life vest. ELEMENTARY SCHOOL DIRECTOR updated ANJANA Arroyo with aforementioned information.
[2019-04-30] MEDS: LEVOFLOXACIN (250MG) 250 MG TABLET PO SCH (12:11)
--- NOTE | 2019-04-30 14:00 | NUR ---
MS NEONATAL NURSE NOTES-- PT WAS SEEN AND EXAMINED BY DR. WIN AND RECOMMENDED FOR PT TO TRANSFER TO TELE. PAULA RYAN NP NOTIFIED W/ ORDERS TO TRANSFER PT TO TELE. NOTIFIED KNIFE GRINDER VALERIE. PT WILL BE TRANSFERRING TO ROOM 310-1. PT IS A/O X1, AFEBRILE. RESPIRATIONS ARE EVEN AND UNLABORED, NOT IN ANY ACUTE DISTRESS NOTED. NO FACIAL GRIMACING OR MOANING NOTED. ALL BELONGINGS AND MEDS SENT WITH PT. BEDSIDE ENDORSEMENT GIVEN TO LOLI MORENO.
--- NOTE | 2019-04-30 14:10 | NUR ---
received patient via bed. A/O x1 , VS are stable and patient on room air. Patient placed on tele monitor as directed; currently SR 87 with pac's. Patient comfortably resting. Will continue to monitor
--- NOTE | 2019-04-30 18:19 | NUR ---
pATIENT IN BED , REMAINS STABLE ON ROOM AIR , SR 91 ON TELEMONITOR. PATIENT RESPONSIVE TO STIMULI . ORIENTED X1.IV LINE TO THE RIGHT AC G 18 HL , FLUSHING WELL. SAFETY PRECAUTIONS IMPLEMENTED AND BED ALARM ACTIVATED. WILL ENDORSE TO NEXT SHIFT FOR NATALYA.
--- NOTE | 2019-04-30 20:19 | NUR ---
1951- PSYCH DOCTOR CAME AND SEEN THE PATIENT.
--- NOTE | 2019-04-30 20:28 | NUR ---
RN OPENING NOTES: AT 1915- RECEIVED PATIENT IN BED,ASLEEP, AROUSABLE, CALM, DOES NOT ANSWERS QUESTIONS. PATIENT'S LEFT EYE IS CLOSED WHILE THE RIGHT EYE IS OPEN. CALL LIGHT WITHIN REACH. BED IN LOWEST AND LOCKED POSITION. PATIENT UNABLE TO MOVE LEFT ARM AND LEFT LEG. LEFT HEEL OFFLOADED WITH PILLOWS. SKIN ON BOTH HEELS ARE INTACT,NO REDNESS NOTED. BED ALARM ON AT ALL TIMES. WITH RIGHT FIFTH FINGER HEALED WOUND( NO NAIL).
--- NOTE | 2019-04-30 21:02 | NUR ---
V/S taken by SCHOOL LIBRARY MEDIA SPECIALIST, afebrile. Recorded.
[2019-04-30] MEDS: QUETIAPINE FUMARATE 25 MG TABLET PO SCH (21:13)
[2019-04-30] MEDS: ENOXAPARIN SODIUM 40 MG/0.4 ML DISP.SYRIN SQ SCH (21:15)
--- NOTE | 2019-04-30 21:40 | NUR ---
PATIENT STILL SLEEPY. AROUSABLE. ABLE TO SWALLOW CRUSHED MEDS WITH APPLE SAUCE.
--- NOTE | 2019-04-30 22:48 | NUR ---
CLEANED THE PATIENT AND CHANGED DIAPER. LEFT EYE HAS SOME DISCHARGES CLEANED WITH WATER, PATIENT IS ABLE TO OPEN HIS LEFT EYE. SACRAL SKIN IS INTACT, APPLIED Z-GUARD CREAM FOR PROTECTION AND APPLIED MEPILEX DRESSING. MEPILEX DRESSING APPLIED ALSO TO THE RIGHT HIP BONY AREA FOR PROTECTION, SKIN IS INTACT, NO REDNESS. BOTH HEELS ARE OFFLOADED WITH PILLOWS. HOB ELEVATED AT 30 DEGREES AT ALL TIMES. CALL LIGHT WITHIN REACH AND BED ALARM ON.
[2019-05-01] VITALS: BP 112/68
[2019-05-01 04:00] VITALS: BP 135/84
--- NOTE | 2019-05-01 05:31 | NUR ---
RN CLOSING NOTES: PATIENT IN BED, ASLEEP, AROUSABLE. NO COMPLAIN OF PAIN DURING SHIFT. NO SOB NOTED. CONTACT ISOLATION OBSERVED AT ALL TIMES, WITH SIGN ON THE BOARD. CALL LIGHT WITHIN REACH. BED ALARM ON. BED IN LOWEST AND LOCKED POSITION. V/S STABLE. HEELS OFFLOADED WITH PILLOWS.
--- NOTE | 2019-05-01 07:33 | NUR ---
LITHODUPLICATOR OPERATOR OPENING NOTE RECEIVED PATIENT IN BED SLEEPING COMFORTABLY. PATIENT IN NO ACUTE DISTRESS. NO SOB NOTED. PATIENT BREATHING IS EVEN AND UNLABORED. PATIENT ON TELE MONITORING READING SINUS RHYTHM HR 79. PATIENT BED IS LOCKED AND IN LOWEST POSITION. CALL LIGHT WITHIN REACH. WILL CONTINUE TO MONITOR.
[2019-05-01 08:00] VITALS: BP 110/85
[2019-05-01] MEDS: SPIRONOLACTONE 25 MG TABLET PO SCH (08:20)
[2019-05-01] MEDS: CARVEDILOL 6.25 MG TABLET PO SCH ×2 (08:20→21:16)
[2019-05-01] MEDS: LISINOPRIL (5MG) 5 MG TABLET PO SCH (08:20)
[2019-05-01 09:38] LABS: BASOPHILS % (AUTO) 0.4 % (0.0-2.0); EOSINOPHILS % (AUTO) 0.6 % (0.0-6.0); HEMATOCRIT 42 % (39-51); HEMOGLOBIN 13.4 g/dL (13.5-17.5); LYMPHOCYTES # (AUTO) 1.2 /CMM (0.8-4.8); LYMPHOCYTES % (AUTO) 10.5 % (20.0-44.0); MEAN CORPUSCULAR HGB CONC 32 g/dl (31.0-36.0); MEAN CORPUSCULAR VOLUME 85 fL (80-96); MONOCYTES # (AUTO) 0.7 /CMM (0.1-1.30); MONOCYTES % (AUTO) 5.9 % (2.0-12.0); NEUTROPHILS # (AUTO) 9.6 /CMM (1.8-8.9); NEUTROPHILS % (AUTO) 82.6 % (43.0-81.0); PLATELET COUNT (AUTO) 352 /CMM (150-450); RED BLOOD CELL COUNT(AUTO) 4.93 MIL/uL (4.5-6.0); WHITE BLOOD COUNT (AUTO) 11.6 K/uL (4.3-11.0)
[2019-05-01 09:55] LABS: CALCIUM, SERUM 9.7 mg/dL (8.5-10.1); CREATININE 1.2 mg/dL (0.6-1.3); MAGNESIUM 2.3 mg/dL (1.8-2.4); PHOSPHORUS 4.1 mg/dL (2.5-4.9); POTASSIUM 3.9 mmol/L (3.5-5.1)
[2019-05-01] MEDS: MUPIROCIN OINT 2% 22 GM TUBE SCH ×2 (10:03→21:29)
[2019-05-01] MEDS: LEVOFLOXACIN (250MG) 250 MG TABLET PO SCH (12:26)
[2019-05-01 16:00] VITALS: BP 105/74
--- NOTE | 2019-05-01 18:34 | NUR ---
FOAMING MACHINE OPERATOR CLOSING NOTE PATIENT IN BED RESTING COMFORTABLY. PATIENT IN NO ACUTE DISTRESS. NO SOB NOTED. PATIENT BREATHING IS EVEN AND UNLABORED. PATIENT ON TELE MONITORING READING SINUS RHYTHM HR 88. PATIENT KEPT CLEAN, DRY AND COMFORTABLE THROUGHOUT SHIFT. PATIENT BED ALARM IS ON. PATIENT IV PATENT AND INTACT. PATIENT TURNED AND REPOSITIONED Q2H. PATIENT BED IS LOCKED AND IN LOWEST POSITION. CALL LIGHT WITHIN REACH. WILL ENDORSE CARE TO PM SHIFT FOR NATALYA.
[2019-05-01 20:00] VITALS: BP 122/80
[2019-05-01] MEDS: ENOXAPARIN SODIUM 40 MG/0.4 ML DISP.SYRIN SQ SCH (21:15)
[2019-05-01] MEDS: QUETIAPINE FUMARATE 25 MG TABLET PO SCH (21:15)
[2019-05-02] VITALS: BP 97/59
[2019-05-02 04:00] VITALS: BP 126/95
--- NOTE | 2019-05-02 06:21 | NUR ---
BUSINESS MANAGER COLLEGE OR UNIVERSITY NOTES AWAKE & ALERT. NOT IN ANY DISTRESS. NO SOB NOTED. DENIES ANY PAIN OR DISCOMFORT AT THIS TIME. ON TELE SR @ 87 WITH IV-HL PATENT & INTACT. AM CARE DONE. MONITORED ACCORDINGLY. CALL LIGHT WITHIN REACH. BED IN LOWEST POSITION. SR UP X 3 WITH BED ALARM ON FOR SAFETY. WILL ENDORSE TO NEXT SHIFT.
[2019-05-02 07:21] LABS: BASOPHILS % (AUTO) 0.3 % (0.0-2.0); EOSINOPHILS % (AUTO) 0.5 % (0.0-6.0); HEMATOCRIT 44 % (39-51); HEMOGLOBIN 14.1 g/dL (13.5-17.5); LYMPHOCYTES # (AUTO) 1.2 /CMM (0.8-4.8); LYMPHOCYTES % (AUTO) 9.8 % (20.0-44.0); MEAN CORPUSCULAR HGB CONC 32 g/dl (31.0-36.0); MEAN CORPUSCULAR VOLUME 86 fL (80-96); MONOCYTES # (AUTO) 0.9 /CMM (0.1-1.30); NEUTROPHILS # (AUTO) 10.4 /CMM (1.8-8.9); NEUTROPHILS % (AUTO) 82.4 % (43.0-81.0); PLATELET COUNT (AUTO) 384 /CMM (150-450); RED BLOOD CELL COUNT(AUTO) 5.12 MIL/uL (4.5-6.0); WHITE BLOOD COUNT (AUTO) 12.7 K/uL (4.3-11.0)
[2019-05-02 08:00] VITALS: BP_SYST 108; BP_DIAS 62; BP_DIAS 80
--- NOTE | 2019-05-02 08:00 | NUR ---
RN NOTES RECEIVED PATIENT IN THE BED A/O X1/2, PATIENT HAS NO ACUTE RESPIRATORY DISTRESS, V/S TAKEN BP 108/80, HELD BP MEDICATION. PATIENT REFUSED PAIN, ADMINISTERED SCHEDULED MEDICATION CRUSHED AND MIXED WITH APPLE SAUCE. PATIENT SEDATED, ASSIST EATING VIA OCCUPATIONAL HEALTH AND SAFETY MANAGER, PATIENT TOLERATED 60 % OF PUREED DIET. ASSIST TURN AND REPOSTION Q2 HR.
[2019-05-02 08:03] LABS: CALCIUM, SERUM 9.8 mg/dL (8.5-10.1); CREATININE 1.9 mg/dL (0.6-1.3); MAGNESIUM 2.4 mg/dL (1.8-2.4); PHOSPHORUS 4.7 mg/dL (2.5-4.9); POTASSIUM 3.9 mmol/L (3.5-5.1)
[2019-05-02] MEDS: CARVEDILOL 6.25 MG TABLET PO SCH ×2 (09:00→20:17)
[2019-05-02] MEDS: LISINOPRIL (5MG) 5 MG TABLET PO SCH (09:00)
[2019-05-02] MEDS: SPIRONOLACTONE 25 MG TABLET PO SCH (09:43)
[2019-05-02] MEDS: MUPIROCIN OINT 2% 22 GM TUBE SCH ×2 (09:46→20:21)
--- NOTE | 2019-05-02 11:00 | NUR ---
rn notes SEEN PATIENT BY HOSPITALIST, NEW ORDERS TAKEN AND CARRIED OUT. PATIENT TELE SR-109 V/S STABLE, SEDATED, BUT AROUSE WHEN CALLED NAME OR TOUCHED.ASSIST TURN AND REPOSTION Q 2 HR.
[2019-05-02 12:00] VITALS: BP 113/85
[2019-05-02] MEDS: LEVOFLOXACIN (250MG) 250 MG TABLET PO SCH (12:32)
--- NOTE | 2019-05-02 15:05 | NUR ---
RN NOTES COLLECTED UA SPECIMEN CLEAN CATCH ORDERED.
[2019-05-02 16:00] VITALS: BP 100/64
[2019-05-02] MEDS: ACETAMINOPHEN 325 MG TABLET PO PRN (17:40)
--- NOTE | 2019-05-02 17:40 | NUR ---
RN NOTES T- 99 F ADMINISTERED TYLENOL 650 MG PO PRN.
[2019-05-02 18:26] LABS: APPEARANCE,URINE CLEAR (CLEAR); BILIRUBIN,URINE NEGATIVE (NEGATIVE); BLOOD, URINE NEGATIVE Ery/uL (NEGATIVE); COLOR,URINE YELLOW (YELLOW); KETONES,URINE NEGATIVE (NEGATIVE); LEUKOCYTE ESTERASE ,URINE NEGATIVE (NEGATIVE); NITRITE, URINE NEGATIVE (NEGATIVE); PH,URINE 5.5 (5.0-8.0); PROTEIN,URINE NEGATIVE (NEGATIVE); UGLUCOSE NEGATIVE (NEGATIVE); UROBILINOGEN,URINE 0.2 EU/dL (0.2)
--- NOTE | 2019-05-02 18:30 | NUR ---
RN NOTES T-98.4 AT THIS TIME, TOLERATED DINNER WELL, AWAKE, WAS COMPLAINING OF WEAKNESS, UNABLE TO WALK. V/S STABLE, ASSIST TURN AND REPOSTION Q 2 HR. CALL LIGHT WITHIN TO REACH. SAFETY PRECAUTION MAINTAINED ALL THE TIME.
--- NOTE | 2019-05-02 19:53 | NUR ---
TELE/RN OPENING NOTES: RECEIVED PATIENT IN BED SLEEPING COMFORTABLY. PATIENT IN NO ACUTE DISTRESS. NO SOB NOTED. PATIENT BREATHING IS EVEN AND UNLABORED. PATIENT ON TELE MONITORING; READING SINUS RHYTHM HR 88, INVERTED P-WAVES. SAFETY MEASURES INITIATED. PATIENT BED IS LOCKED AND IN LOWEST POSITION. CALL LIGHT WITHIN REACH. WILL CONTINUE TO MONITOR PATIENT ACCORDINGLY.
[2019-05-02 20:00] VITALS: BP 94/63
[2019-05-02] MEDS: ENOXAPARIN SODIUM 40 MG/0.4 ML DISP.SYRIN SQ SCH (21:28)
[2019-05-02] MEDS: QUETIAPINE FUMARATE 25 MG TABLET PO SCH (22:00)
--- NOTE | 2019-05-02 22:00 | NUR ---
TELE/RN NOTES: SEROQUEL 50MG 2 TAB PO, HELD. PATIENT IS LETHARGIC AND UNABLE TO RESPOND TO COMMANDS. RISK FOR ASPIRATION, PATIENT IS TOO SEDATED. BP IS ALSO DECREASED AT 94/63. WILL CONTINUE MONITORING PATIENT ACCORDINGLY.
[2019-05-03] VITALS: BP_SYST 103; BP_DIAS 76; BP_DIAS 78
[2019-05-03 00:10] VITALS: BP 103/76
[2019-05-03 04:00] VITALS: BP 127/64
--- NOTE | 2019-05-03 06:16 | NUR ---
TELE/RN CLOSING NOTES: PATIENT IN BED SLEEPING. IN STABLE CONDITION. PATIENT IN NO ACUTE DISTRESS. NO SOB NOTED. PATIENT BREATHING IS EVEN AND UNLABORED. PATIENT ON TELE MONITORING; READING SINUS RHYTHM HR 90S, INVERTED P-WAVES. KEPT PATIENT WARM AND COMFORTABLE THROUGHOUT THE SHIFT. ALL NEEDS MET AND RENDERED. SKIN ASSESSMENT DONE, ALL PICTURES TAKEN AND DOCUMENTED IN THE CHART. SAFETY MEASURES KEPT IN PACE. PATIENT BED IS LOCKED AND IN LOWEST POSITION. CALL LIGHT WITHIN REACH. WILL ENDORSE TO DAY SHIFT FOR NATALYA.
[2019-05-03 07:05] LABS: BASOPHILS % (AUTO) 0.1 % (0.0-2.0); EOSINOPHILS % (AUTO) 0.7 % (0.0-6.0); HEMATOCRIT 42 % (39-51); HEMOGLOBIN 13.2 g/dL (13.5-17.5); LYMPHOCYTES # (AUTO) 1.1 /CMM (0.8-4.8); MEAN CORPUSCULAR HGB CONC 31 g/dl (31.0-36.0); MEAN CORPUSCULAR VOLUME 84 fL (80-96); MONOCYTES # (AUTO) 0.7 /CMM (0.1-1.30); MONOCYTES % (AUTO) 5.5 % (2.0-12.0); NEUTROPHILS % (AUTO) 84.7 % (43.0-81.0); PLATELET COUNT (AUTO) 370 /CMM (150-450); RED BLOOD CELL COUNT(AUTO) 4.99 MIL/uL (4.5-6.0); WHITE BLOOD COUNT (AUTO) 11.8 K/uL (4.3-11.0)
[2019-05-03 07:34] LABS: CREATININE 1.5 mg/dL (0.6-1.3); MAGNESIUM 2.4 mg/dL (1.8-2.4); PHOSPHORUS 3.9 mg/dL (2.5-4.9); POTASSIUM 3.7 mmol/L (3.5-5.1)
[2019-05-03 08:00] VITALS: BP 115/88
--- NOTE | 2019-05-03 08:00 | NUR ---
CRITICAL SODIUM LEVELS RECEIVED CALL FROM LAB RE: CRITICALLY HIGH SODIUM LEVELS. INFORMED PAULA RYAN BURNISHER. AWAITING CALL BACK.
--- NOTE | 2019-05-03 08:00 | NUR ---
FOREST RESOURCES PROFESSOR OPENING NOTES RECEIVED PATIENT IN BED SLEEPING. BUT AROUSABLE. PT APPEARS TO BE LETHARGIC. NO CARDIAC OR RESP DISTRESS NOTED. NO SOB NOTED. SATURATING WELL ON ROOM AIR. PATIENT ON CARDIAC TELE MONITORING; READING SINUS RHYTHM HR. IV ACCESS NOTED ON R AC G18. FLUSHING WELL. INTACT AND PATENT. NO S/S OF INFECTION OR INFILTRATION NOTED. SAFETY MEASURES KEPT IN PACE. PATIENT BED IS LOCKED AND IN LOWEST POSITION. CALL LIGHT WITHIN REACH.
--- NOTE | 2019-05-03 08:15 | NUR ---
FOOD TRADES ASSISTANTS RESPONSE PAULA RYAN CALLED BACK AND IS AWARE OF SODIUM LEVELS. PER PAULA TO NOTIFY [facility] FOR CONSULT
[2019-05-03] MEDS: CARVEDILOL 6.25 MG TABLET PO SCH ×2 (08:39→21:31)
[2019-05-03] MEDS: LISINOPRIL (5MG) 5 MG TABLET PO SCH (08:39)
[2019-05-03] MEDS: SPIRONOLACTONE 25 MG TABLET PO SCH (08:39)
[2019-05-03] MEDS: MUPIROCIN OINT 2% 22 GM TUBE SCH ×2 (08:44→21:35)
[2019-05-03] MEDS ORDERED: IV D5W 1,000 ML IV ONE (09:00)
--- NOTE | 2019-05-03 10:00 | NUR ---
[facility] CONSULT DR ROSENBERG IS CURRENTLY IN THE UNIT. NOTIFIED REGARDING CRITICALLY HIGH SODIUM LEVELS. RECEIVED ORDERS FOR D5W AT 50ML/HR.
--- NOTE | 2019-05-03 12:00 | NUR ---
COUGHING WHILE EATING PT NOTED COUGHING WHILE EATING. RECEIVED ORDERS FOR SPEECH EVAL TO R/O ASPIRATION.
[2019-05-03] MEDS: LEVOFLOXACIN (250MG) 250 MG TABLET PO SCH (13:23)
[2019-05-03 16:00] VITALS: BP 111/82
--- NOTE | 2019-05-03 16:10 | NUR ---
ACCOUNTANT SUPERVISOR met with the pt bedside. Pt is alert and oriented x 1 and unable to provide any meaningful information at this time. ACCOUNTANT SUPERVISOR updated Dr. Mireles with pt's mental status. ACCOUNTANT SUPERVISOR also contacted Howard at [facility] ([facility]) and updated him regarding pt's mental status.
--- NOTE | 2019-05-03 18:56 | NUR ---
TRAVEL REGISTERED NURSE NICU CLOSING NOTES PATIENT IN BED ASLEEP BUT AROUSABLE. PT APPEARS TO BE LETHARGIC. NO CARDIAC OR RESP DISTRESS NOTED. NO SOB NOTED. SATURATING WELL ON ROOM AIR. PATIENT ON CARDIAC TELE MONITORING; READING SINUS RHYTHM HR. IV ACCESS NOTED ON R AC G18. FLUSHING WELL. INTACT AND PATENT. NO S/S OF INFECTION OR INFILTRATION NOTED. D5W RUNNING AT 50ML/HR. SAFETY MEASURES KEPT IN PACE. PATIENT BED IS LOCKED AND IN LOWEST POSITION. CALL LIGHT WITHIN REACH.
--- NOTE | 2019-05-03 19:31 | NUR ---
MS/RN OPENING NOTES: RECEIVED PATIENT IN BED AWAKE, AND RESTING IN BED. PT STILL APPEARS TO BE LETHARGIC. NO CARDIAC OR RESP DISTRESS NOTED. NO SOB NOTED. SATURATING WELL ON ROOM AIR. IV ACCESS NOTED ON R AC G18. FLUSHING WELL. INTACT AND PATENT WITH D5W RUNNING AT 50ML/HR. NO S/S OF INFECTION OR INFILTRATION NOTED. SAFETY MEASURES INITIATED. PATIENT BED IS LOCKED AND IN LOWEST POSITION. SR UP X2. CALL LIGHT WITHIN REACH. WILL CONTINUE MONITORING PT. ACCORDINGLY.
[2019-05-03 20:00] VITALS: BP 112/77
[2019-05-03] MEDS: ENOXAPARIN SODIUM 40 MG/0.4 ML DISP.SYRIN SQ SCH (21:30)
[2019-05-03] MEDS: QUETIAPINE FUMARATE 25 MG TABLET PO SCH (22:00)
--- NOTE | 2019-05-03 22:00 | NUR ---
MS/RN NOTES: SEROQUEL 50MG 2 TAB PO, HELD. PATIENT IS LETHARGIC AND TOO SEDATED. WILL CONTINUE MONITORING PATIENT ACCORDINGLY.
[2019-05-04 06:45] LABS: BASOPHILS # (AUTO) 0.1 /CMM (0.0-0.2); BASOPHILS % (AUTO) 0.9 % (0.0-2.0); EOSINOPHILS % (AUTO) 0.8 % (0.0-6.0); HEMATOCRIT 47 % (39-51); LYMPHOCYTES # (AUTO) 1.2 /CMM (0.8-4.8); LYMPHOCYTES % (AUTO) 9.7 % (20.0-44.0); MEAN CORPUSCULAR HGB CONC 30 g/dl (31.0-36.0); MEAN CORPUSCULAR VOLUME 89 fL (80-96); MONOCYTES # (AUTO) 0.8 /CMM (0.1-1.30); MONOCYTES % (AUTO) 6.4 % (2.0-12.0); NEUTROPHILS # (AUTO) 10.2 /CMM (1.8-8.9); NEUTROPHILS % (AUTO) 82.2 % (43.0-81.0); PLATELET COUNT (AUTO) 346 /CMM (150-450); RED BLOOD CELL COUNT(AUTO) 5.27 MIL/uL (4.5-6.0); WHITE BLOOD COUNT (AUTO) 12.4 K/uL (4.3-11.0)
[2019-05-04 06:54] LABS: ALBUMIN 2.7 g/dL (3.4-5.0); BILIRUBIN,TOTAL 0.3 mg/dL (0.2-1.0); CREATININE 1.6 mg/dL (0.6-1.3); MAGNESIUM 2.6 mg/dL (1.8-2.4); TOTAL PROTEIN, SERUM 8.3 g/dL (6.4-8.2)
--- NOTE | 2019-05-04 07:25 | NUR ---
MS/RN CLOSING NOTES: PATIENT IN BED AWAKE. IN STABLE CONDITION. PATIENT IN NO ACUTE DISTRESS. NO SOB NOTED. PATIENT BREATHING IS EVEN AND UNLABORED. PATIENT IS A/OX2. MORE RESPONSIVE AND ALERT NOW. KEPT PATIENT WARM AND COMFORTABLE THROUGHOUT THE SHIFT. KEPT PATIENT CLEAN AND DRY, REPOSITIONED Q2HRS. ALL NEEDS MET AND RENDERED. SAFETY MEASURES KEPT IN PACE. PATIENT BED IS LOCKED AND IN LOWEST POSITION. CALL LIGHT WITHIN REACH. WILL ENDORSE TO DAY SHIFT FOR NATALYA.
--- NOTE | 2019-05-04 07:50 | NUR ---
MS RN OPENING NOTE PATIENT IN BED RESTING COMFORTABLY. PATIENT IN NO ACUTE DISTRESS. NO SOB NOTED. PATIENT BREATHING IS EVEN AND UNLABORED. BED ALARM IS ON. SAFETY PRECAUTIONS IN PLACE. IV PATENT AND INTACT. PATIENT BED IS LOCKED AND IN LOWEST POSITION. CALL LIGHT WITHIN REACH. WILL CONTINUE TO MONITOR.
[2019-05-04 08:00] VITALS: BP 103/67
--- NOTE | 2019-05-04 08:00 | NUR ---
MS RN NOTE LAB CALLED FOR CRITICAL LAB VALUE SODIUM 158. DR. MILLER MADE AWARE AND NOTIFIED.
[2019-05-04] MEDS: SPIRONOLACTONE 25 MG TABLET PO SCH (09:00)
[2019-05-04] MEDS: CARVEDILOL 6.25 MG TABLET PO SCH ×2 (09:00→21:00)
[2019-05-04] MEDS: MUPIROCIN OINT 2% 22 GM TUBE SCH ×2 (09:34→20:15)
[2019-05-04] MEDS: IV D5W 1,000 ML IV PRN ×2 (10:17→18:24)
[2019-05-04] MEDS: LEVOFLOXACIN (250MG) 250 MG TABLET PO SCH (13:02)
[2019-05-04 16:00] VITALS: BP 113/77
--- NOTE | 2019-05-04 19:10 | NUR ---
MS RN CLOSING NOTE PATIENT IN BED RESTING COMFORTABLY. PATIENT IN NO ACUTE DISTRESS. NO SOB NOTED. PATIENT BREATHING IS EVEN AND UNLABORED. PATIENT KEPT CLEAN, DRY AND COMFORTABLE THROUGHOUT MY SHIFT. PATIENT BED ALARM IS ON. SAFETY PRECAUTIONS IN PLACE. PATIENT BED IS LOCKED AND IN LOWEST POSITION. CALL LIGHT WITHIN REACH. WILL ENDORSE CARE TO PM SHIFT FOR NATALYA.
--- NOTE | 2019-05-04 19:24 | NUR ---
MS RN OPENING NOTES PATIENT RESTING IN BED COMFORTABLY; A/O X1; NO SOB NOTED; NO S/S OF ACUTE RESPIRATORY DISTRESS NOTED; R AC #18 INTACT AND PATENT, FLUSHING WELL; NO S/S OF REDNESS OR INFILTRATION; IV SITE RUNNING D5W @ 125ML/HR; PATIENT TOLERATING IVF WELL; SAFETY PRECAUTIONS IMPLEMENTED; BED LOCKED IN LOW POSITION; BILATERAL SIDE RAILS X2; CALL LIGHT WITHIN REACH; WILL CONTINUE TO MONITOR
[2019-05-04 20:00] VITALS: BP 105/78
[2019-05-04] MEDS: ENOXAPARIN SODIUM 40 MG/0.4 ML DISP.SYRIN SQ SCH (20:17)
[2019-05-04 20:51] VITALS: BP 105/78
[2019-05-04] MEDS: QUETIAPINE FUMARATE 25 MG TABLET PO SCH (21:09)
[2019-05-05] MEDS: IV D5W 1,000 ML IV PRN ×3 (04:33→22:31)
--- NOTE | 2019-05-05 06:03 | NUR ---
MS RN NOTES R AC #18 INFILTRATED; IV REMOVED; IV TIP INTACT AND NO SIGNS OF BLEEDING; NEW IV ACCESS L FA #20, INTACT AND PATENT; FLUSHING WELL, WILL CONTINUE TO MONITOR
--- NOTE | 2019-05-05 06:18 | NUR ---
MS RN CLOSING NOTES PATIENT RESTING IN BED COMFORTABLY; A/O X1; ABLE TO VERBALIZE HE IS THIRSTY; NO SOB; BREATHING EVEN AND UNLABORED; NO DISTRESS NOTED; L FA #20 INTACT AND PATENT; NS @ 125ML/HR RUNNING, PATIENT TOLERATING IVF WELL; ALL NEEDS RENDERED; SAFETY PRECAUTIONS IMPLEMENTED; BED LOCKED IN LOW POSITION; BILATERAL SIDE RAILS X2; CALL LIGHT WITHIN REACH; WILL ENDORSE NATALYA TO ONCOMING SHIFT
[2019-05-05 06:55] LABS: BASOPHILS % (AUTO) 0.2 % (0.0-2.0); EOSINOPHILS % (AUTO) 0.9 % (0.0-6.0); HEMATOCRIT 40 % (39-51); HEMOGLOBIN 12.7 g/dL (13.5-17.5); LYMPHOCYTES # (AUTO) 1.1 /CMM (0.8-4.8); LYMPHOCYTES % (AUTO) 8.7 % (20.0-44.0); MEAN CORPUSCULAR HGB CONC 32 g/dl (31.0-36.0); MEAN CORPUSCULAR VOLUME 85 fL (80-96); MONOCYTES # (AUTO) 0.6 /CMM (0.1-1.30); MONOCYTES % (AUTO) 4.9 % (2.0-12.0); NEUTROPHILS # (AUTO) 11.1 /CMM (1.8-8.9); NEUTROPHILS % (AUTO) 85.3 % (43.0-81.0); PLATELET COUNT (AUTO) 302 /CMM (150-450); RED BLOOD CELL COUNT(AUTO) 4.76 MIL/uL (4.5-6.0); WHITE BLOOD COUNT (AUTO) 13.1 K/uL (4.3-11.0)
[2019-05-05 07:02] LABS: ALBUMIN 2.3 g/dL (3.4-5.0); BILIRUBIN,TOTAL 0.2 mg/dL (0.2-1.0); CALCIUM, SERUM 9.3 mg/dL (8.5-10.1); CREATININE 1.2 mg/dL (0.6-1.3); MAGNESIUM 2.1 mg/dL (1.8-2.4); PHOSPHORUS 3.6 mg/dL (2.5-4.9); POTASSIUM 3.7 mmol/L (3.5-5.1); TOTAL PROTEIN, SERUM 7.3 g/dL (6.4-8.2)
[2019-05-05 07:10] LABS: HIV SCRN 4G wRFX Non Reactive (Non Reactive)
--- NOTE | 2019-05-05 07:34 | NUR ---
MS RN OPENING NOTE PATIENT IN BED RESTING COMFORTABLY. PATIENT IN NO ACUTE DISTRESS. NO SOB NOTED. PATIENT BREATHING IS EVEN AND UNLABORED. PATIENT BED ALARM IS ON. SAFETY PRECAUTIONS IN PLACE. PATIENT BED IS LOCKED AND IN LOWEST POSITION. CALL LIGHT WITHIN REACH. WILL CONTINUE TO MONITOR.
[2019-05-05 08:00] VITALS: BP 108/70
[2019-05-05] MEDS: CARVEDILOL 6.25 MG TABLET PO SCH ×2 (08:04→21:30)
[2019-05-05] MEDS: SPIRONOLACTONE 25 MG TABLET PO SCH (08:05)
[2019-05-05] MEDS: MUPIROCIN OINT 2% 22 GM TUBE SCH ×2 (08:06→21:57)
--- NOTE | 2019-05-05 10:00 | NUR ---
MS RN NOTE SPOKE WITH DR. MILLER REGARDING PATIENTS NONCOMPLIANCE TO GET URINE IN SPECIMEN CUP FOR URINE CULTURE. PER DR. MILLER IT IS OKAY TO HOLD OFF ON OBTAINING URINE CULTURE AT THIS TIME.
[2019-05-05 13:10] LABS: *SPE A/G RATIO 0.6 (0.7-1.7); *SPE ALBUMIN 2.8 g/dL (2.9-4.4); *SPE ALPHA-1-GLOBULIN 0.5 g/dL (0.0-0.4); *SPE ALPHA-2-GLOBULIN 1.3 g/dL (0.4-1.0); *SPE BETA GLOBULIN 1.6 g/dL (0.7-1.3); *SPE GLOBULIN, TOTAL 4.7 g/dL (2.2-3.9); *SPE M-SPIKE Not Observed g/dL (Not Observed); *SPEGAMMA GLOBULIN 1.4 g/dL (0.4-1.8); PTH, INTACT 15 pg/mL (15-65)
[2019-05-05 16:00] VITALS: BP 137/73
--- NOTE | 2019-05-05 18:43 | NUR ---
MS RN CLOSING NOTE PATIENT IN BED RESTING COMFORTABLY. PATIENT IN NO ACUTE DISTRESS. NO SOB NOTED. PATIENT BREATHING IS EVEN AND UNLABORED. PATIENT KEPT CLEAN, DRY AND COMFORTABLE THROUGHOUT MY SHIFT. PATIENT BED ALARM IS ON. SAFETY PRECAUTIONS IN PLACE. PATIENT IV PATENT AND INTACT. PATIENT BED IS LOCKED AND IN LOWEST POSITION. CALL LIGHT WITHIN REACH. WILL ENDORSE CARE TO PM SHIFT FOR NATALYA.
[2019-05-05 20:00] VITALS: BP 130/83
[2019-05-05] MEDS: ENOXAPARIN SODIUM 40 MG/0.4 ML DISP.SYRIN SQ SCH (21:29)
[2019-05-05] MEDS: QUETIAPINE FUMARATE 25 MG TABLET PO SCH (21:57)
--- NOTE | 2019-05-06 06:30 | NUR ---
MS RN NOTES CONT. IV-HL PATENT & INTACT. AM CARE DONE. MONITORED ACCORDINGLY. CALL LIGHT WITHIN REACH. BED IN LOWEST POSITION. SR UP X 3 WITH BED ALARM ON FOR SAFETY. WILL ENDORSE TO NEXT SHIFT.
--- NOTE | 2019-05-06 06:30 | NUR ---
MS RN NOTES AWAKE & RESPONSIVE. NOT IN ANY DISTRESS. NO SOB NOTED. DENIES ANY PAIN OR DISCOMFORT AT THIS TIME. WITH IV-HL PATENT
[2019-05-06 07:41] LABS: ALBUMIN 2.3 g/dL (3.4-5.0); BILIRUBIN,TOTAL 0.3 mg/dL (0.2-1.0); CALCIUM, SERUM 9.1 mg/dL (8.5-10.1); CREATININE 1.2 mg/dL (0.6-1.3); MAGNESIUM 1.9 mg/dL (1.8-2.4); PHOSPHORUS 3.8 mg/dL (2.5-4.9); POTASSIUM 3.7 mmol/L (3.5-5.1); TOTAL PROTEIN, SERUM 7.1 g/dL (6.4-8.2)
--- NOTE | 2019-05-06 07:46 | NUR ---
MS RN NOTES RECEIVED PATIENT IN BED ASLEEP, AROUSABLETO VERBAL AND TACTILE STIMULI. HOB ELEVATED. DENIES ANY C/O PAIN NOR DISCOMFORT AT THIS TIME. ON D5W INFUSING 150ML/HR DELORIS WELL. LEFT FA IV ACCESS INTACT AND PATENT. BED IN LOWEST POSITION, LOCKED. BED ALARM ON. CALL LIGHT WITHIN REACH.
[2019-05-06 08:00] VITALS: BP 120/61
[2019-05-06] MEDS: ACETAMINOPHEN 325 MG TABLET PO PRN (09:36)
[2019-05-06 09:37] VITALS: BP 120/81
[2019-05-06] MEDS: CARVEDILOL 6.25 MG TABLET PO SCH (09:37)
[2019-05-06] MEDS: SPIRONOLACTONE 25 MG TABLET PO SCH (09:37)
[2019-05-06] MEDS: IV D5W 1,000 ML IV PRN (09:47)
[2019-05-06] MEDS: MUPIROCIN OINT 2% 22 GM TUBE SCH (09:47)
--- NOTE | 2019-05-06 16:30 | NUR ---
MS RN NOTES ALERT AND ORIENTED X1. NO S/S OF RESPIRATORY DISTRESS. DENIES ANY C/O PAIN NOR DISCOMFORT AT THIS TIME. CALLED [facility] AND SPOKE TO GILDA AND GAVE REPORT ALONG WITH DISCHARGE INSTRUCTIONS. IV ACCESS CATHETER REMOVED WITH TIP INTACT. ALL BELONGINGS ACCOUNTED FOR. PATIENT LEFT VIA GURNEY ACCOMPANIED BY 2 EMT AND LEFT IN STABLE CONDITION.
[2019-06-24 10:21] LABS: CREATININE KINASE (CK),MB 12 ng/mL (0.0-10.4)
== END 2019-05-06 17:30 | DRG 198 ==
LOC: ER 12:00 → MEDSG2 13:07 → EDBD 13:07 → MERGE 13:07 → MED 04-30 13:46 → TELE 04-30 23:25 → MED 05-03 08:41
PROVIDERS: ADMIT Nurse Practitioner Acute Care
DX: I25.10 Atherosclerotic heart disease of native coronary artery without angina pectoris (principal); N17.0 Acute kidney failure with tubular necrosis; G92 Toxic encephalopathy; I42.9 Cardiomyopathy, unspecified; E83.51 Hypocalcemia; E83.52 Hypercalcemia; I50.9 Heart failure, unspecified; I11.0 Hypertensive heart disease with heart failure; F20.0 Paranoid schizophrenia; F29 Unspecified psychosis not due to a substance or known physiological condition; Z59.0 Homelessness; K62.3 Rectal prolapse; N39.0 Urinary tract infection, site not specified; B96.20 Unspecified Escherichia coli [E. coli] as the cause of diseases classified elsewhere; Z95.828 Presence of other vascular implants and grafts; Z91.19 Patient's noncompliance with other medical treatment and regimen; Z86.718 Personal history of other venous thrombosis and embolism; E86.9 Volume depletion, unspecified; Z22.322 Carrier or suspected carrier of Methicillin resistant Staphylococcus aureus; D72.829 Elevated white blood cell count, unspecified; F17.200 Nicotine dependence, unspecified, uncomplicated; I69.354 Hemiplegia and hemiparesis following cerebral infarction affecting left non-dominant side; R62.7 Adult failure to thrive; E87.0 Hyperosmolality and hypernatremia; Z51.5 Encounter for palliative care; F12.90 Cannabis use, unspecified, uncomplicated
CPT/HCPCS: 36415; 71045-TC; 80048-TC; 80053-TC; 80061-TC; 80076-TC; 80305; 81000-TC; 82550-TC; 83540-TC; 83690-TC; 83735-TC; 83880; 83970; 84100-TC; 84155; 84165; 84443-TC; 84484-TC; 85025-TC; 85652-TC; 85730-TC; 87040-TC; 87081-TC; 87086-TC; 87186-TC; 92521; 92526; 93307-TC; G0378; J1650; J2060; J7030; J7070

== ENCOUNTER 2019-05-07 21:46 | Emergency (ER) | payer MEDICAID ==
[~2019-05-07] VITALS: Ht 182.9 cm; Wt 74.4 kg
--- NOTE | 2019-05-07 21:50 | NUR ---
PT BIBPA FROM [facility] C/O ALTERED MENTAL STATUS, LOW O2 SAT 92%/NC. PLACED ON 4 LITERS O2 SATTING 100%. PT NON VERBAL, UNABLE TO OBTAIN HISTORY, CONNECTED TO THE MONITOR AND POX. NO ACUTE DISTRESS NOTED.
--- NOTE | 2019-05-07 22:00 | NUR ---
BLOOD DRAWN AND SENT TO LAB
[2019-05-07 22:17] LABS: BASOPHILS # (AUTO) 0.1 /CMM (0.0-0.2); BASOPHILS % (AUTO) 0.3 % (0.0-2.0); EOSINOPHILS % (AUTO) 0.1 % (0.0-6.0); HEMATOCRIT 43 % (39-51); HEMOGLOBIN 13.6 g/dL (13.5-17.5); LYMPHOCYTES # (AUTO) 1.2 /CMM (0.8-4.8); LYMPHOCYTES % (AUTO) 7.6 % (20.0-44.0); MEAN CORPUSCULAR HGB CONC 32 g/dl (31.0-36.0); MEAN CORPUSCULAR VOLUME 83 fL (80-96); MONOCYTES # (AUTO) 0.9 /CMM (0.1-1.30); MONOCYTES % (AUTO) 5.2 % (2.0-12.0); NEUTROPHILS # (AUTO) 14.3 /CMM (1.8-8.9); NEUTROPHILS % (AUTO) 86.8 % (43.0-81.0); PLATELET COUNT (AUTO) 185 /CMM (150-450); RED BLOOD CELL COUNT(AUTO) 5.15 MIL/uL (4.5-6.0); WHITE BLOOD COUNT (AUTO) 16.4 K/uL (4.3-11.0)
[2019-05-07 22:25] LABS: CALCIUM, SERUM 9.5 mg/dL (8.5-10.1); CREATININE 3.1 mg/dL (0.6-1.3); POTASSIUM 4.8 mmol/L (3.5-5.1)
[2019-05-07] MEDS ORDERED: IV NS 0.9% 1,000 ML BAG IV ONE ×2 (22:30→23:00)
[2019-05-07] MEDS ORDERED: PIPERACILLIN /TAZOBACTAM 3.375 G in IV D5W 50 ML IV ONE (22:30)
[2019-05-07] MEDS ORDERED: ACETAMINOPHEN 650 MG/SUPP.RECT RC ONE ×2 (22:30→22:41)
[2019-05-07] MEDS ORDERED: VANCOMYCIN 1 GM in IV D5W 250 ML IV ONE (22:30)
[2019-05-07 22:31] LABS: ALBUMIN 2.5 g/dL (3.4-5.0); BILIRUBIN,DIRECT 0.1 mg/dL (0.0-0.2); BILIRUBIN,TOTAL 0.5 mg/dL (0.2-1.0); TOTAL PROTEIN, SERUM 7.8 g/dL (6.4-8.2)
[2019-05-07] MEDS ORDERED: PIPERACILLIN /TAZOBACTAM 3.375 G VIAL IV ONE (22:40)
[2019-05-07] MEDS ORDERED: VANCOMYCIN 1 GM VIAL ONE (22:40)
--- NOTE | 2019-05-07 22:42 | NUR ---
PT TAKEN TO CT
--- NOTE | 2019-05-07 22:55 | NUR ---
PT BACK FROM CT
[2019-05-07] MEDS ORDERED: IV NS 0.9% 500 ML BAG IV ONE (23:00)
[2019-05-07 23:40] LABS: APPEARANCE,URINE Slightly Cloudy (CLEAR); BILIRUBIN,URINE SMALL (NEGATIVE); BLOOD, URINE Large Ery/uL (NEGATIVE); COLOR,URINE Yellow (YELLOW); KETONES,URINE Negative (NEGATIVE); LEUKOCYTE ESTERASE ,URINE Negative (NEGATIVE); NITRITE, URINE Negative (NEGATIVE); PH,URINE 5.5 (5.0-8.0); PROTEIN,URINE 100 mg/dl (NEGATIVE); UGLUCOSE Negative (NEGATIVE)
[2019-05-07 23:48] LABS: BACTERIA,URINE Few /HPF (None Seen); RBC,URINE 21-50 /HPF (0-2); SQUAMOUS EPITHELIAL CELL,UR Few /HPF (None Seen); WBC,URINE 0-2 /HPF (0-3)
--- NOTE | 2019-05-07 23:57 | NUR ---
[facility] CALLED FOR S TRANSPORT. TRIP #[id number]. PENDING ETA.
--- NOTE | 2019-05-08 00:14 | NUR ---
[facility] ETA: [phone]
[2019-05-08] MEDS ORDERED: ASPIRIN 300 MG/SUPP.RECT RC ONE ×2 (00:56→01:00)
--- NOTE | 2019-05-08 01:15 | NUR ---
REPORT GIVEN TO LOLI SEPULVEDA
--- NOTE | 2019-05-08 04:07 | NUR ---
REPORT GIVEN TO EMS. PT TRANSFERRED BACK TO THE FACILITY
[2019-05-08 04:08] VITALS: BP 92/64
[2019-05-09] MEDS ORDERED: MULT1TAB73 PO (22:20)
[2019-05-09] MEDS ORDERED: DOCU-141 PO (22:20)
[2019-05-09] MEDS ORDERED: SPIR25TA6 PO (22:20)
[2019-05-09] MEDS ORDERED: ASCO500C18 PO (22:20)
[2019-05-09] MEDS ORDERED: CARV6.25 PO (22:20)
[2019-05-09] MEDS ORDERED: ENOX40DI SQ (22:20)
[2019-05-14] MEDS ORDERED: ASPI-605 PO (12:52)
[2019-05-14] MEDS ORDERED: PIPE3.379 IV (12:52)
[2019-05-14] MEDS ORDERED: ATOR20TA PO (12:52)
[2019-05-14] MEDS ORDERED: LACT-209 GT (12:52)
[2019-05-14] MEDS ORDERED: VANC750P9 IV (12:52)
== END 2019-05-08 04:37 ==
LOC: MERGE 21:49 → ER 21:49
DX: I63.9 Cerebral infarction, unspecified (principal); R41.82 Altered mental status, unspecified; R79.89 Other specified abnormal findings of blood chemistry; R94.31 Abnormal electrocardiogram [ECG] [EKG]; R00.0 Tachycardia, unspecified; I10 Essential (primary) hypertension; Z60.2 Problems related to living alone
CPT/HCPCS: 36415; 70450; 71045; 80048; 80076; 80305; 81001; 82962; 83605; 84145; 84484; 85025; 85730; 87040; 87081; 87086; 93005; 96365; 96367; 99285; J2543; J3370; J7030 ×2; J7040; 81000-TC; J7060

== ENCOUNTER 2019-05-09 21:16 | Inpatient (IN) | payer MEDICAID ==
[~2019-05-09] VITALS: Ht 185.4 cm; Wt 60.3 kg
--- NOTE | 2019-05-09 21:20 | NUR ---
PT AAOX3. LESIA FROM [facility]. PER EMS PT MOM WANTS PT OFF HOSPICE & TO BE FULL CODE. "BROUGHT TO ED FOR CLEARANCE." PLACED ON MONITOR AND PULSE OX. NO ACUTE DISTRESS NOTED. AWAITING MD FOR EVAL. WILL CONTINUE TO MONITOR.
--- NOTE | 2019-05-09 21:53 | NUR ---
LABS COLLECTED AND SENT, AWAITING URINE SAMPLE. TECH AT BEDSIDE FOR EKG
[2019-05-09 21:59] LABS: BASOPHILS # (AUTO) 0.1 /CMM (0.0-0.2); BASOPHILS % (AUTO) 0.4 % (0.0-2.0); EOSINOPHILS % (AUTO) 0.5 % (0.0-6.0); HEMATOCRIT 35 % (39-51); HEMOGLOBIN 10.9 g/dL (13.5-17.5); LYMPHOCYTES # (AUTO) 1.4 /CMM (0.8-4.8); MEAN CORPUSCULAR HGB CONC 32 g/dl (31.0-36.0); MEAN CORPUSCULAR VOLUME 85 fL (80-96); MONOCYTES # (AUTO) 0.9 /CMM (0.1-1.30); MONOCYTES % (AUTO) 5.4 % (2.0-12.0); NEUTROPHILS # (AUTO) 15.1 /CMM (1.8-8.9); NEUTROPHILS % (AUTO) 85.7 % (43.0-81.0); PLATELET COUNT (AUTO) 138 /CMM (150-450); RED BLOOD CELL COUNT(AUTO) 4.06 MIL/uL (4.5-6.0); WHITE BLOOD COUNT (AUTO) 17.6 K/uL (4.3-11.0)
[2019-05-09] MEDS ORDERED: IV NS 0.9% 1,000 ML BAG IV ONE ×2 (22:00→23:30)
[2019-05-09] MEDS ORDERED: LIDOCAINE 2% JEL UROJET 10 ML MM ONE ×2 (22:03→22:30)
[2019-05-09 22:20] LABS: ALBUMIN 2.4 g/dL (3.4-5.0); BILIRUBIN,DIRECT 0.1 mg/dL (0.0-0.2); BILIRUBIN,TOTAL 0.2 mg/dL (0.2-1.0); CALCIUM, SERUM 9.1 mg/dL (8.5-10.1); CREATININE 2.7 mg/dL (0.6-1.3); POTASSIUM 4.3 mmol/L (3.5-5.1); TOTAL PROTEIN, SERUM 7.2 g/dL (6.4-8.2)
[2019-05-09] MEDS ORDERED: ASCO500C18 PO (22:20)
[2019-05-09] MEDS ORDERED: DOCU-141 PO (22:20)
[2019-05-09] MEDS ORDERED: CARV6.25 PO (22:20)
[2019-05-09] MEDS ORDERED: MULT1TAB73 PO (22:20)
[2019-05-09] MEDS ORDERED: SPIR25TA6 PO (22:20)
[2019-05-09] MEDS ORDERED: ENOX40DI SQ (22:20)
[2019-05-09 22:21] LABS: APPEARANCE,URINE Slightly Cloudy (CLEAR); BILIRUBIN,URINE Negative (NEGATIVE); BLOOD, URINE Trace-lysed Ery/uL (NEGATIVE); COLOR,URINE Yellow (YELLOW); KETONES,URINE Negative (NEGATIVE); LEUKOCYTE ESTERASE ,URINE Negative (NEGATIVE); NITRITE, URINE Negative (NEGATIVE); PH,URINE 5.5 (5.0-8.0); PROTEIN,URINE Negative (NEGATIVE); UGLUCOSE Negative (NEGATIVE); UROBILINOGEN,URINE 0.2 EU/dL (0.2)
--- NOTE | 2019-05-09 22:21 | NUR ---
SODIUM 160, BUN 114
[2019-05-09 22:32] LABS: WBC,URINE 0-2 /HPF (0-3)
[2019-05-09 22:33] LABS: BACTERIA,URINE Few /HPF (None Seen); RBC,URINE 0-2 /HPF (0-2); SQUAMOUS EPITHELIAL CELL,UR Few /HPF (None Seen); URINE AMORPHOUS URATE Few /HPF (None Seen)
--- NOTE | 2019-05-09 23:40 | NUR ---
Patient is resting comfortably in bed. Easily aroused. VSS. Mother at bedside.
--- NOTE | 2019-05-10 00:04 | NUR ---
ER DOC ON PHONE WITH HOSPITALIST
--- NOTE | 2019-05-10 00:04 | NUR ---
CALLED SUP FOR TELE BED
--- NOTE | 2019-05-10 00:08 | NUR ---
ER MD TALKING TO PT REGARDING REGGIE MARIN DNP REGARDING PT ADMISSION.
[2019-05-10] MEDS ORDERED: IV D5/0.45 NACL 1,000 ML IV PRN (00:12)
--- NOTE | 2019-05-10 00:21 | NUR ---
REPORT GIVEN TO ANAHI ENNIS FOR NATALYA
[2019-05-10] MEDS ORDERED: Z GUARD REMEDY 2 OZ OINT TP PRN (00:30)
[2019-05-10] MEDS ORDERED: ACETAMINOPHEN 650 MG/SUPP.RECT RC PRN (00:30)
[2019-05-10] MEDS ORDERED: ONDANSETRON HCL/PF 4 MG/2 ML VIAL IVP PRN (00:30)
[2019-05-10 00:45] VITALS: BP 108/67
--- NOTE | 2019-05-10 00:50 | NUR ---
MS RESIDENTIAL LIFE DIRECTOR NOTES PATIENT RECEIVED VIA GURNEY, ACCOMPANIED BY ER STAFF AND MOTHER. PATIENT A/O X 3 ON 2L OF O2 VIA NC WITH BREATHING EVEN AND UNLABORED, NO SOB NOTED. NO SIGNS OF ACUTE DISTRESS. NO COMPLAINTS OF PAIN OR DISCOMFORT. VITALS TAKEN. NO BELONGINGS ACCOUNTED FOR. SKIN ASSESSMENT DONE. IV LOCAATED ON R AC #18 PATENT AND INTACT. PATIENT ORIENTED TO ROOM AND STAFF. SAFETY PRECAUTIONS PLACE WITH BED IN LOWEST POSITION, CALL LIGHT WITHIN REACH, BREAKS ON, AND SIDE RAILS UP. WILL CONTINUE TO MONITOR.
[2019-05-10 01:00] VITALS: BP 108/67
[2019-05-10] MEDS ORDERED: VANCOMYCIN 1.5 GM in IV D5W 500ml IV ONE (01:00)
[2019-05-10] MEDS ORDERED: ZOSYN IVPB 3.375 G in IV D5W 50ml IV ONE (01:00)
--- NOTE | 2019-05-10 01:00 | NUR ---
PATIENT CONTACT INFO TALAT TORRES (MOTHER) [phone]
--- NOTE | 2019-05-10 01:10 | NUR ---
PT TRANSFERED PER [facility] [employer].
[2019-05-10] MEDS ORDERED: PIPERACILLIN /TAZOBACTAM 3.375 G VIAL IV ONE (01:22)
--- NOTE | 2019-05-10 01:30 | NUR ---
SOCIETY REPORTER NOTES PATIENT HAS POLST IN CHART FOR DNR AND COMFORT MEASURES, BUT WAS NEVER SIGNED BY MOTHER. PATIENT AND MOTHER WANTS PATIENT TO BE FULL CODE.
[2019-05-10] MEDS ORDERED: VANCOMYCIN 1 GM VIAL ONE ×2 (01:31→01:33)
--- NOTE | 2019-05-10 02:54 | NUR ---
rn notes: received telephone order from hospitalist observation nurse, for pt to be on cardiac diet. order read back, verified and carried out.
--- NOTE | 2019-05-10 03:40 | NUR ---
OIL FIELD OPERATOR NOTES PER MD ORDER 1.5 GM VANCOMYCIN ORDERED. IN STOCK, 2 1GM OF VANCOMYCIN IN 250 CC. 1GM OF VANCOMYCIN IN 250 ML ADMINISTERED, ONLY HALF OF SECOND VANCO BAG ADMINISTERED OF 125 ML TOTAL. WILL CONTINUE TO MONITOR
[2019-05-10 04:00] VITALS: BP 104/76
[2019-05-10] MEDS ORDERED: FEE PK DOSING 1 MIN EA MC ONE (06:28)
[2019-05-10 06:31] LABS: BASOPHILS % (AUTO) 0.3 % (0.0-2.0); EOSINOPHILS % (AUTO) 0.8 % (0.0-6.0); HEMATOCRIT 40 % (39-51); HEMOGLOBIN 12.5 g/dL (13.5-17.5); LYMPHOCYTES # (AUTO) 1.4 /CMM (0.8-4.8); LYMPHOCYTES % (AUTO) 9.3 % (20.0-44.0); MEAN CORPUSCULAR HGB CONC 31 g/dl (31.0-36.0); MEAN CORPUSCULAR VOLUME 84 fL (80-96); MONOCYTES # (AUTO) 0.8 /CMM (0.1-1.30); MONOCYTES % (AUTO) 5.2 % (2.0-12.0); NEUTROPHILS # (AUTO) 12.5 /CMM (1.8-8.9); NEUTROPHILS % (AUTO) 84.4 % (43.0-81.0); PLATELET COUNT (AUTO) 105 /CMM (150-450); RED BLOOD CELL COUNT(AUTO) 4.78 MIL/uL (4.5-6.0); WHITE BLOOD COUNT (AUTO) 14.8 K/uL (4.3-11.0)
--- NOTE | 2019-05-10 06:32 | NUR ---
ASSEMBLER RADIO AND ELECTRICAL CLOSING NOTES PATIENT RESTING IN BED A/O X3. ON 2L OF O2 VIA NC WITH BREATHING EVEN AND UNLABORED, NO SOB NOTED. NO SIGNS OF ACUTE DISTRESS. NO COMPLAINTS OF PAIN OR DISCOMFORT. IV LOCATED ON RIGHT AC #18 RUNNING D51/2 NS @ 75 ML/HR. TELE MONITOR READING SR WITH PAC 81 AND INVERTED T WAVE. PATIENT WAS KEPT CLEAN AND DRY THROUGHOUT THE NIGHT, ALL NEEDS ATTENDED TO. SAFETY PRECAUTIONS IN PLACE WITH BED IN LOWEST POSITION, CALL LIGHT WITHIN REACH, SIDE RAILS UP, BEAKS ON, AND CALL LIGHT WITHIN REACH. WILL ENDORSE TO ONCOMING SHIFT ABOUT NATALYA.
[2019-05-10] MEDS: ZOSYN IVPB 2.25 G in IV D5W 50ml IV SCH ×4 (07:08→23:17)
--- NOTE | 2019-05-10 07:28 | NUR ---
LOGISTICS PROJECT MANAGER OPENING NOTES RECEIVED REPORT ON PATIENT FROM NIGHT NURSE. PATIENT IS LAYING IN BED APPEARS COMFORTABLE WITH NO PAIN. BED IS IN LOWEST LOCKED POSITION WITH SIDE RAILS UP. CALL LIGHT IS WITHIN REACH. NO SOB/ RESPIRATORY DISTRESS NOTED. WILL CONTINUE TO MONITOR.
[2019-05-10] MEDS: PANTOPRAZOLE 40 MG VIAL IV SCH (08:25)
[2019-05-10 09:01] VITALS: BP 133/84
[2019-05-10] MEDS: IV D5/0.45 NACL 1,000 ML IV PRN ×2 (10:05→20:19)
--- NOTE | 2019-05-10 12:24 | NUR ---
MS RN NOTES LAB TUAN BNP AGAIN STATING FIRST DRAW WAS HEMOLYZED AND SECOND DRAW WAS NOT ADEQUATE. AWAITING FOR RESULTS.
[2019-05-10 13:19] LABS: ALBUMIN 2.2 g/dL (3.4-5.0); BILIRUBIN,TOTAL 0.3 mg/dL (0.2-1.0); CALCIUM, SERUM 8.8 mg/dL (8.5-10.1); CREATININE 1.9 mg/dL (0.6-1.3); PHOSPHORUS 3.7 mg/dL (2.5-4.9); TOTAL PROTEIN, SERUM 6.9 g/dL (6.4-8.2)
[2019-05-10 13:41] LABS: POTASSIUM 4.5 mmol/L (3.5-5.1)
[2019-05-10 16:49] VITALS: BP 115/59
[2019-05-10] MEDS: MORPHINE SULFATE INJ 2 MG/ML DISP.SYRIN IV PRN (18:17)
--- NOTE | 2019-05-10 18:52 | NUR ---
MS RN CLOSING NOTES PATIENT IS CURRENTLY LAYING IN BED, BED IN LOWEST LOCKED POSITION WITH SIDE RAILS UP. PATIENT GIVEN MORPHINE PER PATIENT'S REQUEST. CALL LIGHT WITHIN REACH. IV ON R FOREARM IS INTACT AND PATENT. PATIENT IS ON 2L NASAL CANNULA, NO SOB/ RESPIRATORY DISTRESS NOTED. WILL ENDORSE REPORT TO PM NURSE.
--- NOTE | 2019-05-10 19:50 | NUR ---
MS RN NOTE: PATIENT RESTING IN BED, NO ACUTE DISTRESS NOTED. BREATHING EVEN AND UNLABORED, NO SOB NOTED. ISOLATION PRECAUTIONS OBSERVED. BED LOCKED AND IN LOWEST POSITION, CALL LIGHT IN REACH. WILL CONTINUE TO MONITOR.
[2019-05-10 20:00] VITALS: BP 153/88
[2019-05-10] MEDS ORDERED: VANCOMYCIN 500 MG in IV D5W 100ml IV SCH (20:00)
[2019-05-10] MEDS: VANCOMYCIN HCL 0.75 GM in IV D5W 250 ML IV SCH (20:19)
--- NOTE | 2019-05-11 03:30 | NUR ---
MS RN NOTE: PATIENT SLEEPING IN BED, NO ACUTE DISTRESS NOTED. BREATHING EVEN AND UNLABORED, NO SOB NOTED. ISOLATION PRECAUTIONS OBSERVED. BED LOCKED AND IN LOWEST POSITION, CALL LIGHT IN REACH. WILL CONTINUE TO MONITOR.
--- NOTE | 2019-05-11 05:05 | NUR ---
MS RN NOTE: PATIENT IV TO RAC ACCIDENTALLY GOT PULLED OUT. IV TO RFA IN PLACE. BED LOCKED AND IN LOWEST POSITION, CALL LIGHT IN REACH. WILL CONTINUE TO MONITOR.
[2019-05-11] MEDS: IV D5/0.45 NACL 1,000 ML IV PRN (05:31)
[2019-05-11] MEDS: ZOSYN IVPB 2.25 G in IV D5W 50ml IV SCH ×4 (05:31→23:24)
--- NOTE | 2019-05-11 06:00 | NUR ---
MS RN NOTE: PATIENT RESTING IN BED, NO ACUTE DISTRESS NOTED. BREATHING EVEN AND UNLABORED, NO SOB NOTED. IV TO RFA IN PLACE, INFUSING D5 1/2NS AT 85ML/HR. ISOLATION PRECAUTIONS OBSERVED. BED LOCKED AND IN LOWEST POSITION, CALL LIGHT IN REACH. WILL ENDORSE TO DAY NURSE TO CONTINUE WITH PLAN OF CARE.
--- NOTE | 2019-05-11 07:42 | NUR ---
MS RN OPENING NOTES RECEIVED PATIENT IN BED, ASLEEP. BREATHING ON ROOM AIR WITH NO SIGNS OF ACUTE DISTRESS OR SOB. NO SIGNS OF PAIN SUCH FACIAL GRIMACING, GUARDING OR MOANING. RFA GAUGE # 22 IS PRESENT AND PATENT INFUSING D5 1/2 NS @ 85 ML/HR. ALL SAFETY PRECAUTIONS IN PLACE; BED IN LOW POSITION AND LOCKED, RAILS UP X2, HOB ELEVATED AT 30 DEGREES, CALL LIGHT WITHIN REACH. WILL CONTINUE TO MONITOR PATIENT.
[2019-05-11 08:00] VITALS: BP 121/84
[2019-05-11] MEDS: PANTOPRAZOLE 40 MG VIAL IV SCH (08:24)
[2019-05-11] MEDS: VANCOMYCIN HCL 0.75 GM in IV D5W 250 ML IV SCH (13:14)
[2019-05-11 15:59] LABS: BASOPHILS % (AUTO) 0.3 % (0.0-2.0); EOSINOPHILS % (AUTO) 1.4 % (0.0-6.0); HEMATOCRIT 31 % (39-51); HEMOGLOBIN 9.9 g/dL (13.5-17.5); LYMPHOCYTES % (AUTO) 11.2 % (20.0-44.0); MEAN CORPUSCULAR HGB CONC 31 g/dl (31.0-36.0); MEAN CORPUSCULAR VOLUME 85 fL (80-96); MONOCYTES # (AUTO) 0.3 /CMM (0.1-1.30); MONOCYTES % (AUTO) 3.6 % (2.0-12.0); NEUTROPHILS # (AUTO) 7.4 /CMM (1.8-8.9); NEUTROPHILS % (AUTO) 83.5 % (43.0-81.0); PLATELET COUNT (AUTO) 111 /CMM (150-450); RED BLOOD CELL COUNT(AUTO) 3.69 MIL/uL (4.5-6.0); WHITE BLOOD COUNT (AUTO) 8.8 K/uL (4.3-11.0)
[2019-05-11 16:00] VITALS: BP 134/91
[2019-05-11 16:48] LABS: ALBUMIN 2.1 g/dL (3.4-5.0); BILIRUBIN,TOTAL 0.3 mg/dL (0.2-1.0); CALCIUM, SERUM 8.7 mg/dL (8.5-10.1); CREATININE 1.3 mg/dL (0.6-1.3); MAGNESIUM 2.4 mg/dL (1.8-2.4); PHOSPHORUS 3.2 mg/dL (2.5-4.9); POTASSIUM 4.4 mmol/L (3.5-5.1); TOTAL PROTEIN, SERUM 6.7 g/dL (6.4-8.2)
[2019-05-11 16:54] LABS: THYROID STIMULATING HORMONE 3.313 uIU/mL (0.358-3.74)
--- NOTE | 2019-05-11 18:09 | NUR ---
MS RN NOTES RECEIVED CRITICAL LAB RESULTS FOR PROCALCITONIN OF 3.76. MD NOTIFIED. THE LAB RESULT IS TRENDING DOWN FROM 21.66 ON 05/09/19 TO 3.76 TODAY, 05/11/19
[2019-05-11] MEDS ORDERED: BISACODYL SUPP (10 MG) 10 MG/SUPP.RECT SUPP.RECT RC PRN (18:30)
--- NOTE | 2019-05-11 18:51 | NUR ---
MS RN CLOSING NOTES PATIENT IN BED AT THIS TIME, ASLEEP. WAS VISITED BY HIS MOTHER AND FRIEND TODAY. AT THIS TIME ON O2 THERAPY AT 2 LPM. NO SIGNS OF ACUTE DISTRESS OR SOB NOTED. NO SIGNS OF PAIN SUCH FACIAL GRIMACING, GUARDING OR MOANING. RFA GAUGE # 22 IS PRESENT AND PATENT INFUSING D5 1/2 NS @ 85 ML/HR. ALL SAFETY PRECAUTIONS IN PLACE; BED IN LOW POSITION AND LOCKED, RAILS UP X2, HOB ELEVATED AT 45 DEGREES, CALL LIGHT WITHIN REACH. WILL ENDORSE TO ENGINEERING WRITER NURSE.
--- NOTE | 2019-05-11 20:00 | NUR ---
MS RN NOTE: PATIENT RESTING IN BED, NO ACUTE DISTRESS NOTED. BREATHING EVEN AND UNLABORED, NO SOB NOTED. IV TO RFA IN PLACE, INFUSING D5 1/2NS AT 85ML/HR. HOB ELEVATED ASPIRATION PRECAUTIONS OBSERVED. BED LOCKED AND IN LOWEST POSITION, CALL LIGHT IN REACH. WILL CONTINUE TO MONITOR.
[2019-05-11 20:48] VITALS: BP 125/79
[2019-05-11] MEDS: MORPHINE SULFATE INJ 2 MG/ML DISP.SYRIN IV PRN (23:44)
--- NOTE | 2019-05-11 23:45 | NUR ---
MS RN NOTE: PATIENT COMPLAINS OF BACK/NECK PAIN 10/10, MORPHINE 2MG IV GIVEN PER MD ORDER. WILL CONTINUE TO MONITOR.
[2019-05-12] MEDS: IV D5/0.45 NACL 1,000 ML IV PRN ×2 (01:58→16:37)
[2019-05-12] MEDS: ZOSYN IVPB 2.25 G in IV D5W 50ml IV SCH ×4 (05:23→23:40)
[2019-05-12 06:45] LABS: BASOPHILS % (AUTO) 0.3 % (0.0-2.0); EOSINOPHILS % (AUTO) 0.9 % (0.0-6.0); HEMATOCRIT 30 % (39-51); HEMOGLOBIN 9.7 g/dL (13.5-17.5); LYMPHOCYTES % (AUTO) 12.9 % (20.0-44.0); MEAN CORPUSCULAR HGB CONC 32 g/dl (31.0-36.0); MEAN CORPUSCULAR VOLUME 84 fL (80-96); MONOCYTES # (AUTO) 0.4 /CMM (0.1-1.30); MONOCYTES % (AUTO) 5.2 % (2.0-12.0); NEUTROPHILS # (AUTO) 6.1 /CMM (1.8-8.9); NEUTROPHILS % (AUTO) 80.7 % (43.0-81.0); PLATELET COUNT (AUTO) 123 /CMM (150-450); RED BLOOD CELL COUNT(AUTO) 3.63 MIL/uL (4.5-6.0); WHITE BLOOD COUNT (AUTO) 7.6 K/uL (4.3-11.0)
[2019-05-12 07:22] LABS: CREATININE 1.2 mg/dL (0.6-1.3); MAGNESIUM 2.3 mg/dL (1.8-2.4); PHOSPHORUS 2.9 mg/dL (2.5-4.9); POTASSIUM 3.2 mmol/L (3.5-5.1)
--- NOTE | 2019-05-12 07:41 | NUR ---
MS/RN OPENING NOTE Patient is resting in bed, A/O x3, showing no signs of acute distress or SOB, saturating >95% on RA. Patient has no complaints of pain at this time. IV line in the RFA #22g is clean and intact running D51/2 NS @ 85ml/hour. Bed is in lowest position, side rails x3 in upright position, call light is within reach and patient is aware of how to call for assistance when needed. Fall, safety, and aspiration precautions enforced. Will continue with plan of care.
[2019-05-12 08:00] VITALS: BP 121/91
[2019-05-12] MEDS: PANTOPRAZOLE 40 MG VIAL IV SCH (08:51)
[2019-05-12] MEDS: VANCOMYCIN HCL 0.75 GM in IV D5W 250 ML IV SCH (08:51)
--- NOTE | 2019-05-12 10:07 | NUR ---
WOUND CARE CONSULT: PT NOT SEEN YET FOR SKIN ASSESSMENT DUE TO PT OFF UNIT AT THIS TIME. WILL SEE PT PT CONDITION PERMITS.
--- NOTE | 2019-05-12 10:41 | NUR ---
WOUND CARE CONSULT: PT PRESENTS WITH FRAGILE SKIN AND MULTIPLE SCARS INCLUDING LEFT ELBOW, SACRAL AREA AND HIPS, LOWER EXTREMITIES, PRESENT ON ADMISSION. PT IS INCONTINENT AND IS VERY THIN AND BONY. RECOMMENDATIONS MADE FOR SKIN PROTECTION. DISCUSSED WITH NURSING STAFF. PT ON LUCIO ISOFLEX LOW AIRLOSS BED. WILL SEE PRN. DAVID IN AGREEMENT WITH PLAN OF CARE. CURRENT KEMI SCORE IS 13. Addendum: 05/12/19 at 1043 by FRANCISCO LOPEZ WNDNU Amended: Links added.
[2019-05-12] MEDS: POTASSIUM CHLORIDE 20 MEQ TAB.PRT.SR PO SCH ×2 (11:10→11:52)
[2019-05-12 16:00] VITALS: BP 121/83
--- NOTE | 2019-05-12 17:37 | NUR ---
MS/RN CLOSING NOTE Patient is resting in bed, A/O x2, showing no signs of acute distress or SOB, saturating >95% on RA. Patient has no complaints of pain at this time. IV line in the RFA #22g is clean and intact running D51/2 NS @ 85ml/hour. Condemn catheter noted with 400cc output clear and yellow. Bed is in lowest position, side rails x3 in upright position. PEG tube placement scheduled tomorrow with Dr. Chris. NPO after midnight. All patient needs met, all due meds given, patient kept clean and comfortable throughout shift. Fall, safety, and aspiration precautions enforced. Will endorse to night stocker.
--- NOTE | 2019-05-12 19:10 | NUR ---
MS RN NOTES RECEIVED PT IN BED AND AWAKE. PT A/O X1-2 WITH PERIODS OF CONFUSION. RESPIRATIONS EVEN AND UNLABORED WITH NO S/S OF ACUTE DISTRESS OR SOB NOTED. NO COMPLAINTS OF PAIN AT THIS TIME. PT NOTED WITH RFA #22G PATENT AND INTACT INFUSING D5 1/2NS @55CC/HR. SAFETY MEASURES IN PLACE WITH BED IN LOWEST LOCKED POSITION WITH SIDE RAILS UP X2. CALL LIGHT WITHIN REACH. WILL CONTINUE TO MONITOR.
[2019-05-12 20:00] VITALS: BP 124/89
[2019-05-13] MEDS: VANCOMYCIN HCL 0.75 GM in IV D5W 250 ML IV SCH ×2 (03:02→20:30)
[2019-05-13] MEDS: ZOSYN IVPB 2.25 G in IV D5W 50ml IV SCH ×3 (05:51→17:01)
[2019-05-13 06:19] LABS: BASOPHILS % (AUTO) 0.1 % (0.0-2.0); EOSINOPHILS % (AUTO) 0.5 % (0.0-6.0); HEMATOCRIT 34 % (39-51); HEMOGLOBIN 10.7 g/dL (13.5-17.5); LYMPHOCYTES # (AUTO) 0.9 /CMM (0.8-4.8); LYMPHOCYTES % (AUTO) 11.8 % (20.0-44.0); MEAN CORPUSCULAR HGB CONC 32 g/dl (31.0-36.0); MEAN CORPUSCULAR VOLUME 84 fL (80-96); MONOCYTES # (AUTO) 0.5 /CMM (0.1-1.30); MONOCYTES % (AUTO) 6.1 % (2.0-12.0); NEUTROPHILS # (AUTO) 6.5 /CMM (1.8-8.9); NEUTROPHILS % (AUTO) 81.5 % (43.0-81.0); PLATELET COUNT (AUTO) 134 /CMM (150-450)
[2019-05-13 07:00] LABS: CALCIUM, SERUM 9.2 mg/dL (8.5-10.1); CREATININE 1.1 mg/dL (0.6-1.3); MAGNESIUM 2.1 mg/dL (1.8-2.4); POTASSIUM 3.7 mmol/L (3.5-5.1)
--- NOTE | 2019-05-13 07:34 | NUR ---
MS RN NOTES PT IN BED AND AWAKE. PT A/O X1-2 WITH PERIODS OF CONFUSION. RESPIRATIONS EVEN AND UNLABORED WITH NO S/S OF ACUTE DISTRESS OR SOB NOTED THROUGHOUT SHIFT. NO COMPLAINTS OF PAIN AT THIS TIME. PT NOTED WITH RFA #22G PATENT AND INTACT INFUSING D5 1/2NS @55CC/HR. PT KEPT CLEAN, DRY, AND COMFORTABLE. SAFETY MEASURES IN PLACE WITH BED IN LOWEST LOCKED POSITION WITH SIDE RAILS UP X2. CALL LIGHT WITHIN REACH. WILL ENDORSE TO ONCOMING NURSE FOR NATALYA.
[2019-05-13 08:00] VITALS: BP 109/81
--- NOTE | 2019-05-13 08:00 | NUR ---
MS RN OPENING NOTES RECEIVED PT IN BED AND AWAKE. ALERT AND ORIENTED X1 CONFUSED. HE KNOWS HE IS IN A HOSPITAL BUT DOES NOT WHERE WHICH ONE, DOESNT KNOW THE DATE AND TIME AND/OR THE BESS [facility] PRESIDENT. NO CARDIAC OR RESP DISTRESS NOTED. RESPIRATIONS EVEN AND UNLABORED . NO COMPLAINTS OF PAIN AT THIS TIME. PT NOTED WITH RFA #22G PATENT AND INTACT INFUSING D5 1/2NS @55CC/HR. PT KEPT CLEAN, DRY, AND COMFORTABLE. SAFETY MEASURES IN PLACE WITH BED IN LOWEST LOCKED POSITION WITH SIDE RAILS UP X2. PT KEPT NPO, AND IS SCHEDULED TO HAVE PEG TUBE PLACEMENT PER [facility] SHIFT NURSE. CONSENTS ARE IN THE CHART. CONSENT FOR SURGERY WAS GIVEN BY PTS MOTHER. WILL CONT TO MONITOR.
--- NOTE | 2019-05-13 08:15 | NUR ---
CALL TO PTS MOTHER TALAT CALLED PTS MOTHER (TALAT) TO CONFIRM IF SHE IS AWARE OF THE SURGERY. PER TALAT, "YES, I AM FULLY AWARE AND I GIVE CONSENT." VS CHECKED NOTED AT BP- 109/81, T- 96.9, P- 81, RR-18, 100% O2 SAT.
--- NOTE | 2019-05-13 08:30 | NUR ---
PICKED UP FOR PEG TUBE PLACEMENT PT PICKED UP FOR PEG TUBE PLACEMENT, REPORT GIVEN TO OR NURSE TOM.
[2019-05-13] MEDS: PANTOPRAZOLE 40 MG VIAL IV SCH (09:00)
--- NOTE | 2019-05-13 09:45 | NUR ---
CAME BACK FROM OR PT CAME BACK FROM SURGERY S/P PEG TUBE PLACEMENT. VS CHECKED NOTED AT BP- 121/95, T- 97.6, P- 74, RR- 18, O2 SAT- 100%. NO S/S OF BLEEDING FROM PEG TUBE SITE. DR. PARR WAS THE ONE WHO PERFORMED SURGERY. WITH ORDERS TO USE PEG TUBE WATER AND MEDS IN 4 HRS. AND TO USE PEG FOR TUBE FEEDING TOMORROW AM.
[2019-05-13] MEDS: MORPHINE SULFATE INJ 2 MG/ML DISP.SYRIN IV PRN (11:27)
[2019-05-13 16:00] VITALS: BP 111/85
[2019-05-13] MEDS: IV D5/0.45 NACL 1,000 ML IV PRN (17:21)
[2019-05-13 20:00] VITALS: BP 147/92
[2019-05-14] MEDS: ZOSYN IVPB 2.25 G in IV D5W 50ml IV SCH ×4 (01:17→17:39)
[2019-05-14 07:41] LABS: CALCIUM, SERUM 9.1 mg/dL (8.5-10.1); MAGNESIUM 1.9 mg/dL (1.8-2.4); PHOSPHORUS 3.1 mg/dL (2.5-4.9)
[2019-05-14] MEDS: MORPHINE SULFATE INJ 2 MG/ML DISP.SYRIN IV PRN ×3 (07:50→17:02)
[2019-05-14] MEDS ORDERED: IV D5W 1,000 ML IV PRN (07:51)
--- NOTE | 2019-05-14 08:00 | NUR ---
MS RN OPENING NOTES RECEIVED PT IN BED ASLEEP BUT AROUSABLE. ALERT AND ORIENTED X1 CONFUSED. NO CARDIAC OR RESP DISTRESS NOTED. RESPIRATIONS EVEN AND UNLABORED . PT NOTED WITH RFA #22G PATENT AND INTACT INFUSING D5 1/2NS @55CC/HR. PT KEPT CLEAN, DRY, AND COMFORTABLE. SAFETY MEASURES IN PLACE WITH BED IN LOWEST LOCKED POSITION WITH SIDE RAILS UP X2. PT KEPT NPO. TUBE FEEDING TO START TODAY. AWAITING FOR REPONSE IF OK TO START TUBE FEEDING PER DIETARY RECOMMENDATIONS.
[2019-05-14] MEDS: PANTOPRAZOLE 40 MG VIAL IV SCH (08:14)
[2019-05-14 08:20] LABS: BASOPHILS % (AUTO) 0.3 % (0.0-2.0); EOSINOPHILS % (AUTO) 0.5 % (0.0-6.0); HEMATOCRIT 36 % (39-51); HEMOGLOBIN 11.1 g/dL (13.5-17.5); LYMPHOCYTES # (AUTO) 0.7 /CMM (0.8-4.8); LYMPHOCYTES % (AUTO) 8.3 % (20.0-44.0); MEAN CORPUSCULAR HGB CONC 31 g/dl (31.0-36.0); MEAN CORPUSCULAR VOLUME 85 fL (80-96); MONOCYTES # (AUTO) 0.5 /CMM (0.1-1.30); MONOCYTES % (AUTO) 5.7 % (2.0-12.0); NEUTROPHILS # (AUTO) 7.6 /CMM (1.8-8.9); NEUTROPHILS % (AUTO) 85.2 % (43.0-81.0); PLATELET COUNT (AUTO) 146 /CMM (150-450); RED BLOOD CELL COUNT(AUTO) 4.19 MIL/uL (4.5-6.0)
[2019-05-14 08:38] VITALS: BP 106/80
--- NOTE | 2019-05-14 09:00 | NUR ---
FEEDING STARTED FEEDING STARTED JEVITY 1.2 AT 20ML/HR TO BE ADVANCED UPTO 75ML/HR DELORIS.
[2019-05-14] MEDS ORDERED: JEVITY 1.2 CAL 1,000 ML BOTTLE GT PRN (10:00)
[2019-05-14] MEDS ORDERED: ATOR20TA PO (12:52)
[2019-05-14] MEDS ORDERED: VANC750P9 IV (12:52)
[2019-05-14] MEDS ORDERED: LACT-209 GT (12:52)
[2019-05-14] MEDS ORDERED: ASPI-605 PO (12:52)
[2019-05-14] MEDS ORDERED: PIPE3.379 IV (12:52)
--- NOTE | 2019-05-14 13:00 | NUR ---
INCREASE IN TUBE FEEDING TUBE FEEDING INCREASED TO 30ML/HR. 30ML GASTRIC RESIDUAL NOTED. PT TOLERATING FEEDING WELL
[2019-05-14] MEDS: VANCOMYCIN HCL 0.75 GM in IV D5W 250 ML IV SCH (14:42)
[2019-05-14 16:33] VITALS: BP 107/68
--- NOTE | 2019-05-14 17:00 | NUR ---
INCREASE IN TUBE FEEDING TUBE FEEDING INCREASED TO 40ML/HR. 20ML GASTRIC RESIDUAL NOTED. NO S/S OF ASPIRATION NOTED. HOB ELEVATED >45 DEGREES, TOLERATING TUBE FEEDING WELL.
--- NOTE | 2019-05-14 17:30 | NUR ---
D/C BACK TO SNF PT PICKED UP FOR D/C BACK TO [facility]. PT IN STABLE CONDITION. REPORT GIVEN TO IAN ENNIS AT THE SNF. BODY CHECK DONE. PICTURES TAKEN. NO CARDIAC OR RESPIRATORY DISTRESS NOTED. NO C/O PAIN OR DISCOMFORT. NO DISTRESS NOTED. KEPT PT CLEAN AND DRY. TALAT (PTS MOTHER) WAS CALLED AND NOTIFIED REGARDING D/C. PT LEFT VIA GURNEY/AMBULANCE,
== END 2019-05-14 17:30 | DRG 720 ==
LOC: ER 21:20 → TELE 05-10 00:28 → MERGE 05-10 00:28 → TELE 05-10 00:46 → MED 05-10 09:30
PROVIDERS: ADMIT Student in an Organized Health Care Education/Training Program; ATTEND Nurse Practitioner Acute Care
PROC: 0DH63UZ Insertion of Feeding Device into Stomach, Percutaneous Approach (ICD-10-PCS; principal; 2019-05-13)
DX: A41.9 Sepsis, unspecified organism (principal); N17.0 Acute kidney failure with tubular necrosis; G93.41 Metabolic encephalopathy; I50.23 Acute on chronic systolic (congestive) heart failure; E44.0 Moderate protein-calorie malnutrition; R13.10 Dysphagia, unspecified; J15.9 Unspecified bacterial pneumonia; D69.6 Thrombocytopenia, unspecified; D68.69 Other thrombophilia; E87.0 Hyperosmolality and hypernatremia; E83.52 Hypercalcemia; E86.0 Dehydration; I10 Essential (primary) hypertension; N39.0 Urinary tract infection, site not specified; F20.0 Paranoid schizophrenia; I11.0 Hypertensive heart disease with heart failure; I25.10 Atherosclerotic heart disease of native coronary artery without angina pectoris; I42.9 Cardiomyopathy, unspecified; I69.354 Hemiplegia and hemiparesis following cerebral infarction affecting left non-dominant side; Z51.5 Encounter for palliative care; Z95.828 Presence of other vascular implants and grafts; Z86.718 Personal history of other venous thrombosis and embolism; Z91.19 Patient's noncompliance with other medical treatment and regimen; Z79.01 Long term (current) use of anticoagulants; E86.9 Volume depletion, unspecified; D63.8 Anemia in other chronic diseases classified elsewhere; E87.6 Hypokalemia; E88.09 Other disorders of plasma-protein metabolism, not elsewhere classified; R74.0 Nonspecific elevation of levels of transaminase and lactic acid dehydrogenase [LDH]; Z66 Do not resuscitate
CPT/HCPCS: 36415; 43246; 70450-TC; 71045-TC; 74230-TC; 80048-TC; 80053-TC; 80061-TC; 80076-TC; 80202-TC; 81000-TC; 83605-TC; 83735-TC; 84100-TC; 84443-TC; 84484-TC; 85025-TC; 85385-TC; 85610-TC; 85730-TC; 87040-TC; 87081-TC; 87086-TC; 92521; 97530-TC; A4349; C9113; G0378; J0690; J2270; J2543; J2704; J3370; J3490; J7030; J7042; J7060; J7070

== ENCOUNTER 2019-05-30 20:32 | Emergency (ER) | payer MEDICAID ==
[~2019-05-30] VITALS: Ht 182.9 cm; Wt 74.8 kg
[~2019-05-30 20:32] MED LIST: ASCO500C18 PO; ASPI-605 PO; ATOR20TA PO; CARV6.25 PO; DOCU-141 PO; ENOX40DI SQ; LACT-209 GT; MULT-754 PO; PIPE3.379 IV; SPIR25TA6 PO; VANC750P9 IV
--- NOTE | 2019-05-30 20:52 | NUR ---
BIBPA FOR C/O L SHOULDER PAIN S/P FALL THIS MORNING AT THE FACILITY. PT ALERT AND OX4. RESPONSIVE TO ALL QUESTIONS. NO KO REPORTED. PT WAS PLACED ON THE MONITOR,. VSS
[2019-05-30] MEDS ORDERED: HYDROCODONE/APAP 10/325MG TABLET ONE (20:54)
--- NOTE | 2019-05-30 20:54 | NUR ---
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
[2019-05-30] MEDS ORDERED: HYDROCODONE/APAP 10/325MG TABLET PO ONE (21:00)
--- NOTE | 2019-05-30 21:42 | NUR ---
CALLED [facility]. RESERVATION # [id number]. CALL [phone] TO CHECK ON ETA. CAN TAKE 1-4 HOURS TO FIND ELECTRIFICATION ADVISER. WILL CALL ONCE ELECTRIFICATION ADVISER IS FOUND.
--- NOTE | 2019-05-30 22:11 | NUR ---
[facility] ETA 020
--- NOTE | 2019-05-30 22:20 | NUR ---
REC'D CALL FROM [facility]. NEW ETA 1HR WITH [facility]
--- NOTE | 2019-05-30 22:46 | NUR ---
CALLED [facility] AND GAVE REPORT TO WESLEY. PT CURRENTLY RESTING IN BED COMFORTABLY W/ NO C/O PAIN . VSS. WILL CONT TO MONITOR ,
--- NOTE | 2019-05-30 23:20 | NUR ---
REPORT GIVEN TO house coordinator FROM [facility]
--- NOTE | 2019-05-30 23:29 | NUR ---
PT WAS PICKED UP VIA GURNEY IN STABLE CONDITION. Patient discharged back to the facility in stable condition. Written and verbal after care instructions given. Patient verbalizes understanding of instruction.
[2019-05-30 23:31] VITALS: BP 122/75
== END 2019-05-30 23:32 ==
LOC: ER 20:33 → MERGE 20:33 → ER 23:32
DX: S40.012A Contusion of left shoulder, initial encounter (principal); I10 Essential (primary) hypertension; Z86.73 Personal history of transient ischemic attack (TIA), and cerebral infarction without residual deficits; Z98.890 Other specified postprocedural states; Z60.2 Problems related to living alone; Z79.899 Other long term (current) drug therapy; Z79.82 Long term (current) use of aspirin; Y93.89 Activity, other specified; W18.39XA Other fall on same level, initial encounter; Y92.89 Other specified places as the place of occurrence of the external cause; Y99.8 Other external cause status
CPT/HCPCS: 71045-TC; 73000-TC

== ENCOUNTER 2020-07-31 14:23 | Inpatient (IN) | payer MEDICAID, OTHER ==
[~2020-07-31] VITALS: Ht 177.8 cm; Wt 73.9 kg
--- NOTE | 2020-07-31 14:30 | NUR ---
Patient came in to the er c/o weakness x 1 week. on room air, breathing evenly and unlabored. Connected to the monitor and pulse ox. Kept comfortable, will continue to monitor accordingly.
[2020-07-31] MEDS ORDERED: ONDANSETRON HCL/PF 4 MG/2 ML VIAL IVP ONE (15:00)
[2020-07-31] MEDS ORDERED: MORPHINE SULFATE INJ 2 MG/ML DISP.SYRIN IV ONE ×2 (15:00→19:30)
[2020-07-31] MEDS ORDERED: IV NS 0.9% 1,000 ML BAG IV ONE (15:00)
[2020-07-31] MEDS ORDERED: ONDANSETRON HCL/PF 4 MG/2 ML VIAL ONE (15:05)
[2020-07-31] MEDS ORDERED: MORPHINE SULFATE INJ 4 MG/ML DISP.SYRIN ONE ×2 (15:06→19:06)
[2020-07-31 15:39] LABS: BASOPHILS % (AUTO) 0.5 % (0.0-2.0); EOSINOPHILS % (AUTO) 1.4 % (0.0-6.0); HEMATOCRIT 42 % (39-51); HEMOGLOBIN 13.9 g/dL (13.5-17.5); LYMPHOCYTES # (AUTO) 1.3 /CMM (0.8-4.8); LYMPHOCYTES % (AUTO) 21.3 % (20.0-44.0); MEAN CORPUSCULAR HGB CONC 33 g/dl (31.0-36.0); MEAN CORPUSCULAR VOLUME 90 fL (80-96); MONOCYTES # (AUTO) 0.4 /CMM (0.1-1.30); MONOCYTES % (AUTO) 6.8 % (2.0-12.0); NEUTROPHILS # (AUTO) 4.4 /CMM (1.8-8.9); PLATELET COUNT (AUTO) 217 /CMM (150-450); RED BLOOD CELL COUNT(AUTO) 4.65 MIL/uL (4.5-6.0); WHITE BLOOD COUNT (AUTO) 6.2 K/uL (4.3-11.0)
[2020-07-31 15:48] LABS: CARBON DIOXIDE 30 mmol/L (21-32); CHLORIDE 102 mmol/L (98-107); CREATININE 1.1 mg/dL (0.6-1.3); GLUCOSE 84 mg/dL (74-106); POTASSIUM 3.7 mmol/L (3.5-5.1); SODIUM SERUM 139 mmol/L (136-145); UREA NITROGEN, BLOOD 9 mg/dL (7-18)
[2020-07-31 16:01] LABS: ALANINE AMINOTRANSFERASE 34 U/L (12-78); ALBUMIN 3.8 g/dL (3.4-5.0); ALKALINE PHOSPHATASE 97 U/L (46-116); ASPARTATE AMINOTRANSFERASE 19 U/L (15-37); BILIRUBIN,DIRECT 0.1 mg/dL (0.0-0.2); BILIRUBIN,TOTAL 0.5 mg/dL (0.2-1.0); TOTAL PROTEIN, SERUM 7.6 g/dL (6.4-8.2)
[2020-07-31] MEDS ORDERED: ACETAMINOPHEN ES 500 MG TABLET ONE (16:26)
--- NOTE | 2020-07-31 16:43 | NUR ---
ARRANGED TRANSPORT WITH [facility] [place] [id number]. COMPANY WILL CALL BACK WITHIN AN HOUR FOR ETA.
[2020-07-31] MEDS ORDERED: IOHEXOL-350 100 ML VIAL IV ONE (17:10)
[2020-07-31] MEDS ORDERED: IV NS 0.9% 250 ML IV ONE (17:10)
[2020-07-31] MEDS ORDERED: ACETAMINOPHEN ES 500 MG TABLET PO ONE (17:35)
--- NOTE | 2020-07-31 18:16 | NUR ---
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
[2020-07-31] MEDS ORDERED: TRAZ-257 PO (18:45)
[2020-07-31] MEDS ORDERED: FAMO20TA8 PO (18:45)
--- NOTE | 2020-07-31 18:47 | NUR ---
EDUCATION SITE MANAGER/MED RECON INCOMPLETE HOME MEDICATION OBTAINED FROM BREEZY, CAREGIVER FROM [facility]. PATIENT AND MOTHER UNABLE TO PROVIDE ANY INFO. TRIED CALLING TOBI, PATIENT SERVICE COORDINATOR ([phone]) MULTIPLE TIMES. PRIMARY RN AWARE. Addendum: 07/31/20 at 1850 by YARIEL TOBI, PATIENT SERVICE COORDINATOR [phone] BREEZY, CAREGIVER [phone]
[2020-07-31] MEDS ORDERED: hydrALAZINE HCL IV 20 MG VIAL IV PRN (19:30)
--- NOTE | 2020-07-31 19:54 | NUR ---
REPORT GIVEN TO JOSY ENNIS FOR NATALYA.
[2020-07-31 20:38] LABS: BILIRUBIN,URINE Negative (NEGATIVE); COLOR,URINE YELLOW (YELLOW); LEUKOCYTE ESTERASE ,URINE Large (NEGATIVE); NITRITE, URINE Negative (NEGATIVE); PROTEIN,URINE Negative (NEGATIVE); UGLUCOSE Negative (NEGATIVE); UROBILINOGEN,URINE 0.2 EU/dL (0.2)
[2020-07-31 20:42] VITALS: BP 139/78
--- NOTE | 2020-07-31 20:42 | NUR ---
ADMIT NOTE RECEIVED PATIENT FROM ER TRANSFERRED TO ROOM 108 VIA STRETCHER. ADMITTED PATIENT UNDER THE CARE OF DANICA MONTES. ADMITTING DIAGNOSIS: CVA. HISTORY: CAD, HTN, HYPERLIPIDEMIA, CARDIOMYOPATHY. PATIENT IS ALERT AND ORIENTED X3, ABLE TO MAKE NEEDS KNOWN. ON ROOM AIR, NO SIGNS OF RESPIRATORY DISTRESS. TELE MONITOR ON, SINUS TRE 50'S. DENIES ANY PAIN AT THIS TIME. NOTED WITH LEFT SIDED WEAKNESS AND PARTIAL FACIAL WEAKNESS. PITTING EDEMA +2 NOTED ON LEFT FOOT. SKIN ASSESSMENT DONE, PATIENT HAS LEFT BUTTOCK SCAB. IV ACCESS ON RIGHT ANTECUBITAL #18 PATENT AND INTACT. ORIENTED PATIENT TO ROOM AND CALL LIGHT. BED LOCKED AND IN LOWEST POSITION. CALL LIGHT WITHIN REACH. ALL NEEDS ANTICIPATED.
[2020-07-31 20:53] LABS: BACTERIA,URINE Many /HPF (None Seen); SQUAMOUS EPITHELIAL CELL,UR Few /HPF (None Seen)
[2020-07-31] MEDS: ATORVASTATIN 10 MG TABLET PO SCH (21:35)
[2020-07-31] MEDS: TRAZODONE 50 MG TABLET PO SCH (21:35)
[2020-07-31] MEDS: CLOPIDOGREL BISULFATE 75 MG TABLET PO SCH (21:35)
[2020-07-31] MEDS: ENOXAPARIN SODIUM 40 MG/0.4 ML DISP.SYRIN SQ SCH (21:36)
[2020-08-01] VITALS: BP 96/65
[2020-08-01] MEDS: BLOOD SUGAR DIAGNOSTIC 1 EACH STRIP IN SCH ×5 (00:07→23:57)
[2020-08-01 04:00] VITALS: BP 122/79
[2020-08-01 06:10] LABS: BASOPHILS % (AUTO) 0.8 % (0.0-2.0); EOSINOPHILS % (AUTO) 2.4 % (0.0-6.0); HEMATOCRIT 43 % (39-51); LYMPHOCYTES # (AUTO) 1.8 /CMM (0.8-4.8); LYMPHOCYTES % (AUTO) 36.6 % (20.0-44.0); MEAN CORPUSCULAR HGB CONC 33 g/dl (31.0-36.0); MEAN CORPUSCULAR VOLUME 91 fL (80-96); MONOCYTES # (AUTO) 0.4 /CMM (0.1-1.30); MONOCYTES % (AUTO) 8.3 % (2.0-12.0); NEUTROPHILS # (AUTO) 2.6 /CMM (1.8-8.9); NEUTROPHILS % (AUTO) 51.9 % (43.0-81.0); PLATELET COUNT (AUTO) 184 /CMM (150-450); RED BLOOD CELL COUNT(AUTO) 4.69 MIL/uL (4.5-6.0)
[2020-08-01 06:20] LABS: CREATININE 1.1 mg/dL (0.6-1.3); POTASSIUM 3.8 mmol/L (3.5-5.1)
--- NOTE | 2020-08-01 07:01 | NUR ---
RN NOTE PATIENT IS ALERT AND ORIENTED X3. ON ROOM AIR, NO SIGNS OF RESPIRATORY DISTRESS. TELE MONITOR ON, SINUS TRE 50'S. IV ACCESS ON RIGHT ANTECUBITAL #18 PATENT AND INTACT. ALL DUE MEDS GIVEN ORDERED AND TOLERATED WELL. ALL NEEDS ATTENDED PROMPTLY. BED LOCKED AND IN LOWEST POSITION. CALL LIGHT WITHIN REACH. WILL ENDORSE TO AM SHIFT.
--- NOTE | 2020-08-01 07:30 | NUR ---
RN OPENING NOTES PATIENT PRESENT IN BED, AWAKE, A/OX3, NON AMBULATORY, ON ROOM AIR, SPO2 99%, NSR , HR OF 60 ON TELE-MONITOR, DENIES PAIN AT THIS TIME, RESPIRATIONS EVEN AND EQUAL, NON-LABORED, IV LINE PATENT, FLUSHED AND INTACT, URINAL AT BED SITE, BED LOCKED, IN LOWEST POSITION, CALL LIGHT IN REACH, EDUCATED HOW TO USE CALL LIGHT AND URINAL, WILL CONT TO MONITOR
[2020-08-01 08:00] VITALS: BP 112/81
[2020-08-01] MEDS: MULTIVITAMINS,THERAGRAN 1 UDTAB TABLET PO SCH (08:09)
[2020-08-01] MEDS: CLOPIDOGREL BISULFATE 75 MG TABLET PO SCH (08:09)
[2020-08-01] MEDS: PANTOPRAZOLE 40 MG TABLET.DR PO SCH (08:09)
[2020-08-01] MEDS ORDERED: ASPIRIN EC 325 MG TABLET.DR PO SCH (09:00)
[2020-08-01] MEDS ORDERED: IBUPROFEN 400 MG TABLET PO ONE (10:30)
[2020-08-01] MEDS ORDERED: IBUPROFEN 400 MG TABLET PO PRN (11:00)
--- NOTE | 2020-08-01 11:40 | NUR ---
SS Consult received for Stroke. SW will follow up at a later time.
[2020-08-01 12:00] VITALS: BP 110/72
[2020-08-01 16:00] VITALS: BP 121/81
[2020-08-01] MEDS ORDERED: CEPHALEXIN MONOHYDRATE 500 MG CAPSULE PO SCH (17:00)
--- NOTE | 2020-08-01 18:37 | NUR ---
RN CLOSING NOTES REMAINS IN BED, WAS ABLE TO PARTICIPATE IN SELF CARE, HYGIENE, ABLE TO EAT, WAS PERFORMING ACTIVE AND PASSIVE ROM EXERCISING, MEDICATION GIVEN, COMFORT NEEDS ATTENDED, TOLERATING TREATMENT PLAN WELL, SAFETY MEASURES IN PACE, WILL ENDORSE TO PM SHIFT RN
[2020-08-01] MEDS: LIDOCAINE 5% (PATCH) 1 EA PATCH TP PRN (18:51)
[2020-08-01] MEDS: CEPHALEXIN MONOHYDRATE 250 MG CAPSULE PO SCH (19:21)
[2020-08-01 20:00] VITALS: BP 114/81
--- NOTE | 2020-08-01 20:01 | NUR ---
RN NOTE PATIENT IN BED AWAKE, ALERT AND ORIENTED X3. ON ROOM AIR, RESPIRATIONS EVEN AND UNLABORED. DENIES ANY PAIN AT THIS TIME. TELE MONITOR ON, HEART RATE 60'S. URINAL AT BEDSIDE. IV ACCES ON RIGHT AC #18, FLUSHED ASEPTICALLY WITH NORMAL SALINE. BED LOCKED AND IN LOWEST POSITION WITH SIDE RAILS UP X2. CALL LIGHT WITHIN REACH. ALL NEEDS ANTICIPATED.
[2020-08-01] MEDS: TRAZODONE 50 MG TABLET PO SCH (21:11)
[2020-08-01] MEDS: ATORVASTATIN 10 MG TABLET PO SCH (21:11)
[2020-08-01] MEDS: ENOXAPARIN SODIUM 40 MG/0.4 ML DISP.SYRIN SQ SCH (21:12)
[2020-08-02] VITALS: BP 116/77
--- NOTE | 2020-08-02 01:06 | NUR ---
PATIENT COMPLAINED OF MILD 3/10 HEADACHE, REQUESTING FOR TYLENOL. NOTIFIED IMELDA HUGHES WITH NEW ORDER NOTED AND CARRIED OUT.
[2020-08-02] MEDS: ACETAMINOPHEN 325 MG TABLET PO PRN ×2 (01:08→08:45)
--- NOTE | 2020-08-02 01:08 | NUR ---
ADMINISTERED TYLENOL 650 MG PO AT THIS TIME FOR MILD PAIN HEADACHE. WILL REASSESS PAIN LEVEL.
--- NOTE | 2020-08-02 02:10 | NUR ---
PATIENT STATED WITH RELIEF AFTER TYLENOL. DENIES ANY PAIN. CALL LIGHT WITHIN REACH.
[2020-08-02 04:00] VITALS: BP 117/74
[2020-08-02] MEDS: BLOOD SUGAR DIAGNOSTIC 1 EACH STRIP IN SCH ×3 (05:59→17:25)
[2020-08-02 06:31] LABS: BASOPHILS % (AUTO) 0.5 % (0.0-2.0); EOSINOPHILS % (AUTO) 1.6 % (0.0-6.0); HEMATOCRIT 41 % (39-51); HEMOGLOBIN 13.5 g/dL (13.5-17.5); LYMPHOCYTES # (AUTO) 1.5 /CMM (0.8-4.8); LYMPHOCYTES % (AUTO) 24.5 % (20.0-44.0); MEAN CORPUSCULAR HGB CONC 33 g/dl (31.0-36.0); MEAN CORPUSCULAR VOLUME 91 fL (80-96); MONOCYTES # (AUTO) 0.5 /CMM (0.1-1.30); NEUTROPHILS # (AUTO) 4.1 /CMM (1.8-8.9); NEUTROPHILS % (AUTO) 65.4 % (43.0-81.0); PLATELET COUNT (AUTO) 190 /CMM (150-450); RED BLOOD CELL COUNT(AUTO) 4.48 MIL/uL (4.5-6.0); WHITE BLOOD COUNT (AUTO) 6.3 K/uL (4.3-11.0)
[2020-08-02 06:40] LABS: CALCIUM, SERUM 8.6 mg/dL (8.5-10.1); CREATININE 1.1 mg/dL (0.6-1.3); MAGNESIUM 1.8 mg/dL (1.8-2.4); PHOSPHORUS 3.8 mg/dL (2.5-4.9)
[2020-08-02 06:55] LABS: POTASSIUM 3.7 mmol/L (3.5-5.1)
--- NOTE | 2020-08-02 07:06 | NUR ---
RN NOTE PATIENT ALERT AND ORIENTED X3. ON ROOM AIR, RESPIRATIONS EVEN AND UNLABORED. DENIES ANY PAIN AT THIS TIME. TELE MONITOR ON, HEART RATE 60'S. IV ACCESS ON RIGHT AC #18 PATENT AND INTACT. ALL NEEDS ATTENDED PROMPTLY. BED LOCKED AND IN LOWEST POSITION WITH SIDE RAILS UP X2. CALL LIGHT WITHIN REACH. WILL ENDORSE TO AM SHIFT.
--- NOTE | 2020-08-02 07:30 | NUR ---
RN OPENING NOTES PATIENT CURRENTLY PRESENT IN BED, AWAKE, A/OX4, NON AMBULATORY, ON ROOM AIR, SPO2 99%, MED SURG STATUS ; COMPLAINS ON HEADACHE, ASKING FOR TYLENOL, RESPIRATIONS EVEN AND UNLABORED, IV LINE PATENT, FLUSHED AND INTACT, URINAL AT BED SITE, BED LOCKED, IN LOWEST POSITION, CALL LIGHT IN REACH, EDUCATED HOW TO USE CALL LIGHT AND URINAL, WILL CONT TO MONITOR
[2020-08-02 08:00] VITALS: BP 127/93
[2020-08-02] MEDS: ASPIRIN EC 81 MG TABLET.DR PO SCH (08:41)
[2020-08-02] MEDS: CEPHALEXIN MONOHYDRATE 250 MG CAPSULE PO SCH ×2 (08:41→17:25)
[2020-08-02] MEDS: MULTIVITAMINS,THERAGRAN 1 UDTAB TABLET PO SCH (08:42)
[2020-08-02] MEDS: PANTOPRAZOLE 40 MG TABLET.DR PO SCH (08:42)
[2020-08-02] MEDS: CLOPIDOGREL BISULFATE 75 MG TABLET PO SCH (08:42)
--- NOTE | 2020-08-02 10:30 | NUR ---
IV LINE DISLODGED REMOVED, PATIENT REFUSED TO BE POCKED TO MONITOR
[2020-08-02 12:00] VITALS: BP_SYST 108; BP_SYST 136; BP_DIAS 72; BP_DIAS 78
--- NOTE | 2020-08-02 12:15 | NUR ---
Api Developer consult: instructional services librarian consult requested for stroke. Patient is a 49-year-old, male. SW met with patient at his bedside in the med-surg unit. Patient was alert and oriented x4. Patient was resting and eating his lunch. Patient presented well-groomed and calm. Per chart, patient was brought in by ambulance from [facility] on 07/31/20 with complaints of weakness. Patient stated that he is currently living at a [facility] ([address] [place] [id number]). SW assessed patients history of stroke and patient stated that this was his second stroke. Patient provided SW with a family contact for his mother, Nellie, . Patient stated that he currently has no source of income but receives support from his mother. Patient denied history of substance use. SW assessed patients history of mental illness and patient denied history. Patient denied current suicidal or homicidal ideation. SW administered the PHQ-9 assessment. Patient scored 7 on the PHQ-9. Since patients hospitalization, patient has been having trouble sleeping, feeling tired, trouble concentrating, and speaking slower. SW provided informational material on stroke, Empowerment After Stroke. Patient accepted the packet, and thanked SW for the resource. SW will request an order for psychiatric consult due to patients PHQ-9 result. SW discussed discharge plan with the patient and patient stated that he plans to go to [facility] ([address] [place] [address]; ). 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 PLAN: Patient plans to be discharged to [facility]. No further SS intervention at this time, however, SW will remain available as needed.
--- NOTE | 2020-08-02 12:30 | NUR ---
Social Service note: SW follow up to put in order for psychiatric consult due to patient's PHQ-9 score of 7. SW notified Dina Wasserman NP of psychiatric consult request and she stated that she will put in an order for Dr. Valentino.
[2020-08-02 16:00] VITALS: BP 144/90
--- NOTE | 2020-08-02 19:00 | NUR ---
RN CLOSING NOTES STABLE, CLEANED, MEDICATIONS PROVIDED , WILL ENDORSE TO PM SHIFT RN FOR NATALYA
--- NOTE | 2020-08-02 19:30 | NUR ---
MS RN NOTE RECEIVED PATIENT IN BED. A/OX3. TOLERATING ROOM AIR. RESPIRATIONS ARE EVEN AND UNLABORED. NO S/S SOB NOTED. C/O PAIN IN LEGS, BACK AND SACRUM 09/09, ACHING, INFORMED HIM WILL LOOK AT PAIN MEDICATION AVAILABLE. IN NO APPARENT DISTRESS. PLACED NEW IV ACCESS IN RIGHT HAND #22. BED IS LOW AND LOCKED, HOB ELEVATED IN SEMIF OWLERS, SIDE RIALS UP X2, CALL LIGHT WITHIN REACH. WILL CONTINUE TO MONITOR THROUGHOUT SHIFT.
[2020-08-02 20:00] VITALS: BP 118/82
[2020-08-02] MEDS: HYDROCODONE/APAP 5/325MG TABLET PO PRN (20:24)
[2020-08-02] MEDS: TRAZODONE 50 MG TABLET PO SCH (21:28)
[2020-08-02] MEDS: ENOXAPARIN SODIUM 40 MG/0.4 ML DISP.SYRIN SQ SCH (21:28)
[2020-08-02] MEDS: ATORVASTATIN 10 MG TABLET PO SCH (21:28)
[2020-08-03] MEDS: BLOOD SUGAR DIAGNOSTIC 1 EACH STRIP IN SCH ×4 (00:46→19:28)
[2020-08-03 04:00] VITALS: BP 122/86
[2020-08-03] MEDS: HYDROCODONE/APAP 10/325MG TABLET PO PRN ×2 (04:18→14:11)
--- NOTE | 2020-08-03 06:42 | NUR ---
MS RN NOTE PATIENT RESTING IN BED. A/OX3. REMAINS TOLERATING ROOM AIR. NO RESP DISTRESS. MANAGED PAUIN WITH NORCO 5. NO DISTRESS. IV ACCESS IN RIGHT HAND #22. BED REMAINS LOW AND LOCKED, HOB ELEVATED IN SEMI FOWLERS, SIDE RIALS UP X2, CALL LIGHT WITHIN REACH. WILL ENDORSE TO ONCOMING SHIFT.
[2020-08-03 09:00] VITALS: BP 117/79
[2020-08-03] MEDS: CLOPIDOGREL BISULFATE 75 MG TABLET PO SCH (10:09)
[2020-08-03] MEDS: MULTIVITAMINS,THERAGRAN 1 UDTAB TABLET PO SCH (10:09)
[2020-08-03] MEDS: ASPIRIN EC 81 MG TABLET.DR PO SCH (10:09)
[2020-08-03] MEDS: PANTOPRAZOLE 40 MG TABLET.DR PO SCH (10:09)
[2020-08-03] MEDS: CEPHALEXIN MONOHYDRATE 250 MG CAPSULE PO SCH ×2 (10:10→18:39)
[2020-08-03 12:00] VITALS: BP 118/76
[2020-08-03 16:00] VITALS: BP 128/74
--- NOTE | 2020-08-03 19:02 | NUR ---
RN Notes Patient compliant with care, had c/o pain give [place] Effective, BS = 86 at 12 noon and 71 at 1800 , no insulin needed, continue to monitor, able to make needs known, all MD orders carried out, MRI of Brain completed results sent to MD and no further new orders at this time.
[2020-08-03 20:00] VITALS: BP 118/77
[2020-08-03] MEDS: GABAPENTIN 300 MG CAPSULE PO SCH (21:01)
[2020-08-03] MEDS: ATORVASTATIN 10 MG TABLET PO SCH (21:01)
[2020-08-03] MEDS: ENOXAPARIN SODIUM 40 MG/0.4 ML DISP.SYRIN SQ SCH (21:03)
[2020-08-03] MEDS: TRAZODONE 50 MG TABLET PO SCH (22:18)
--- NOTE | 2020-08-04 00:05 | NUR ---
MS RN NOTE REINFORMED PATIENT OF NPO STATUS OF MIDNIGHT. PATIENT ACKNOWLEDGED NO FOOD OR DRINKS UNTIL TATUM PROCEDURE PREFORMED IN AM. NPO SIGN PLACED IN PATIENTS DOOR WAY, REMOVED ALL FOOD AND DRINK FROM BEDSIDE.
[2020-08-04 04:00] VITALS: BP 122/84
--- NOTE | 2020-08-04 04:27 | NUR ---
MS RN NOTE RECEIVED PATIENT IN BED. A/OX3. TOLERATING ROOM AIR. RESPIRATIONS ARE EVEN AND UNLABORED. NO S/S SOB NOTED. PATIENT C/O LEG PAIN, INFORMED HIM HE NOW HAS GABAPENTIN ORDERED, WILL TRY THIS BEFORE [place]. IN NO APPARENT DISTRESS. IV ACCESS IN RIGHT HAND #22 PATENT AND SALINE LOCKED. BED IS LOW AND LOCKED, HOB ELEVATED IN SEMI FOWLERS, SIDE RIALS UP X2, CALL LIGHT WITHIN REACH. WILL CONTINUE TO MONITOR THROUGHOUT SHIFT. Addendum: 08/04/20 at 0632 by WENDY CARREON RN CORRECT DATE AND TIME FOR THIS NOTE IS 08/03/20 AT 1930 , OPENING NOTE TO SHIFT
[2020-08-04] MEDS: BLOOD SUGAR DIAGNOSTIC 1 EACH STRIP IN SCH ×5 (05:51→23:56)
--- NOTE | 2020-08-04 06:33 | NUR ---
MS RN NOTE PATIENT RESTING IN BED. A/OX3. REMAINS TOLERATING ROOM AIR. PATIENT UNDERSTANDS HE IS NPO UNTIL PROCEDURE. NO DISTRESS. IV ACCESS MAINTAINED IN RIGHT HAND #22. BED REMAINS LOW AND LOCKED, HOB ELEVATED IN SEMI FOWLERS, SIDE RIALS UP X2, CALL LIGHT WITHIN REACH. WILL ENDORSE TO ONCOMING SHIFT.
[2020-08-04 06:41] LABS: BASOPHILS % (AUTO) 0.5 % (0.0-2.0); EOSINOPHILS % (AUTO) 2.7 % (0.0-6.0); HEMATOCRIT 39 % (39-51); HEMOGLOBIN 12.7 g/dL (13.5-17.5); LYMPHOCYTES # (AUTO) 1.7 /CMM (0.8-4.8); LYMPHOCYTES % (AUTO) 34.1 % (20.0-44.0); MEAN CORPUSCULAR HGB CONC 33 g/dl (31.0-36.0); MEAN CORPUSCULAR VOLUME 90 fL (80-96); MONOCYTES # (AUTO) 0.5 /CMM (0.1-1.30); MONOCYTES % (AUTO) 9.7 % (2.0-12.0); NEUTROPHILS # (AUTO) 2.7 /CMM (1.8-8.9); PLATELET COUNT (AUTO) 185 /CMM (150-450); RED BLOOD CELL COUNT(AUTO) 4.29 MIL/uL (4.5-6.0)
[2020-08-04 06:45] LABS: CALCIUM, SERUM 8.7 mg/dL (8.5-10.1); MAGNESIUM 1.8 mg/dL (1.8-2.4); PHOSPHORUS 3.2 mg/dL (2.5-4.9); POTASSIUM 3.6 mmol/L (3.5-5.1)
[2020-08-04] MEDS: PANTOPRAZOLE 40 MG TABLET.DR PO SCH (07:30)
--- NOTE | 2020-08-04 07:37 | NUR ---
RN Notes RECEIVE PATIENT SLEEPING IN BED, A/O X 3, REMAINS TOLERATING ROOM AIR, PATIENT UNDERSTANDS HE IS NPO AND COMPLIANT, NO DISTRESS NOTED , IV ACCESS MAINTAINED IN RIGHT HAND GAUGE 22, BED REMAINS LOW AND LOCKED FOR SAFETY MEASURES, USING URINAL FOR VOID IN BED , HOB ELEVATED IN SEMI FOWLERS, SIDE RIALS UP X2, CALL LIGHT WITHIN REACH, WILL ENDORSE TO ONCOMING SHIFT.
[2020-08-04] MEDS: CEPHALEXIN MONOHYDRATE 250 MG CAPSULE PO SCH ×2 (09:00→17:24)
[2020-08-04] MEDS: ASPIRIN EC 81 MG TABLET.DR PO SCH (09:00)
[2020-08-04] MEDS: MULTIVITAMINS,THERAGRAN 1 UDTAB TABLET PO SCH (09:00)
[2020-08-04] MEDS: GABAPENTIN 300 MG CAPSULE PO SCH ×2 (09:00→17:24)
[2020-08-04] MEDS: CLOPIDOGREL BISULFATE 75 MG TABLET PO SCH (09:00)
[2020-08-04 10:00] VITALS: BP 129/69
--- NOTE | 2020-08-04 10:42 | NUR ---
RN NOTES PATIENT IS NPO, ALL PO ORDERS ON HOLD FOR PROCEDURE AT THIS TIME, WILL CONTINUE TO MONITOR AND KEEP PATIENT NPO AT THIS TIME, AWAITING FOR PRECODURE,, PATIENT SLEEPING/ RESTING IN BED - EASY TO AROUSE.
--- NOTE | 2020-08-04 11:58 | NUR ---
RN NOTES PATIENT C/O HUNGER, HEAD ACHE , AND ACHES AND PAINS, PATIENT IS NPO UNTIL PROCEDURE, EDUCATED ON GUIDED MEDITATION AND PRAYER TO RELAX HELP TO DE-STRESS AND SOOTHE ANY ANXIETY OR ANGER -EFFECTIVE AND PATIENT NOW SLEEPING AWAITING FOR PROCEDURE.
[2020-08-04 14:00] VITALS: BP 128/72
--- NOTE | 2020-08-04 15:24 | NUR ---
RN NOTES TATUM PROCEDURE WAS VERBALLY ORDERED 08/03/2020 , CONSENT WAS COMPLETED AND IN FILE, DR MARTINI MADE THE VERBAL ORDER AND WAS TO MAKE THE ORDER HOWEVER IT IS NOT FOUND IN ORDERS, PATIENT HAS BEEN NPO SINCE 12 MIDNIGHT 08/03/2020, F/U WAS MADE WITH ANJANA RYAN AND SHE SPOKE WITH MD MARTINI AND WAS TOLD HE WAS RUNNING LATE AND WOULD BE HERE LATER IN DAY TO COMPLETE PROCEDURE TO KEEP PATIENT NPO, 1515 ANJANA RYAN WAS CONTACTED TO GET AN APPROXIMATE TIME OF PROCEDURE PATIENT IS HUNGRY AND THIRSTY AND GETTING IRRITABLE AND WEAK, ANJANA RYAN CONTACTED DR MARTINI AND WAS ADVISED PROCEDURE NEEDS TO BE CANCELLED FOR TODAY DUE TO EMERGENCY SITUATION AND IT WILL BE RESCHEDULED AT ANOTHER TIME, PATIENT IS AUTHORIZED TO EAT PO AND BE ON A CARDIAC DIET AT THIS TIME. FAMILY AND PATIENT NOTIFIED, MOTHER TALAT WILL VISIT WITH HEALTHY FOOD FOR PATIENT FOR DINNER TO CHEER HIM UP, CALL LIGHT IN REACH.
[2020-08-04] MEDS: HYDROCODONE/APAP 5/325MG TABLET PO PRN ×6 (15:36→19:46)
[2020-08-04 16:00] VITALS: BP 126/95
[2020-08-04 20:00] VITALS: BP 111/74
--- NOTE | 2020-08-04 20:00 | NUR ---
MS RN NOTE RECEIVED PATIENT IN BED. A/OX3. TOLERATING ROOM AIR. RESPIRATIONS ARE EVEN AND UNLABORED. NO S/S SOB NOTED. PATIENT C/O LEG PAIN, DAY RN JUST ADMINISTERED NORCO 5. IN NO APPARENT DISTRESS. IV ACCESS IN RIGHT HAND #22 PATENT AND SALINE LOCKED. BED IS LOW AND LOCKED, HOB ELEVATED IN SEMI FOWLERS, SIDE RIALS UP X2, CALL LIGHT WITHIN REACH. INFORMED PATIENT HIS BLOOD SUAGR IS LOW AND TO HAVE SOME SNACKS. WILL CONTINUE TO MONITOR THROUGHOUT SHIFT.
[2020-08-04] MEDS: TRAZODONE 50 MG TABLET PO SCH (21:28)
[2020-08-04] MEDS: ATORVASTATIN 10 MG TABLET PO SCH (21:28)
[2020-08-04] MEDS: ENOXAPARIN SODIUM 40 MG/0.4 ML DISP.SYRIN SQ SCH (21:29)
[2020-08-05 04:00] VITALS: BP 112/84
[2020-08-05] MEDS: HYDROCODONE/APAP 10/325MG TABLET PO PRN ×3 (04:33→20:23)
[2020-08-05] MEDS: BLOOD SUGAR DIAGNOSTIC 1 EACH STRIP IN SCH ×3 (05:42→17:05)
[2020-08-05 06:18] LABS: CALCIUM, SERUM 8.6 mg/dL (8.5-10.1); CREATININE 1.1 mg/dL (0.6-1.3); MAGNESIUM 1.8 mg/dL (1.8-2.4); PHOSPHORUS 3.5 mg/dL (2.5-4.9); POTASSIUM 3.5 mmol/L (3.5-5.1)
--- NOTE | 2020-08-05 06:21 | NUR ---
MS RN NOTE PATIENT RESTING IN BED. A/OX3. TOLERATING ROOM AIR. NO RESP DISTRESS. PAIN WAS NOT MANAGED BY NORCO5 AT BEGINNING OF SHIFT WELL NORCO 10 WHEN ADMINISTERED. STATES PAIN IS REMAINING CONSISTENT. WHEN DOING HOURLY ROUNDING PATIENT SEEMS TO BE SLEEPING BUT EASILY AWOKEN. STATED IT FEELS LIKE AN ACHING/ TIGHTNESS LIKE "WHEN YOUR COLD AND MUSCLES FEEL TENSE". NO DISTRESS. IV ACCESS IN RIGHT HAND #22. BED REMAINS LOW AND LOCKED, HOB ELEVATED IN SEMI FOWLERS, SIDE RIALS UP X2, CALL LIGHT WITHIN REACH. WILL ENDORSE TO ONCOMING SHIFT.
[2020-08-05 06:37] LABS: BASOPHILS % (AUTO) 0.6 % (0.0-2.0); EOSINOPHILS % (AUTO) 1.7 % (0.0-6.0); HEMATOCRIT 39 % (39-51); LYMPHOCYTES # (AUTO) 1.5 /CMM (0.8-4.8); LYMPHOCYTES % (AUTO) 31.5 % (20.0-44.0); MEAN CORPUSCULAR HGB CONC 33 g/dl (31.0-36.0); MEAN CORPUSCULAR VOLUME 90 fL (80-96); MONOCYTES # (AUTO) 0.5 /CMM (0.1-1.30); MONOCYTES % (AUTO) 9.7 % (2.0-12.0); NEUTROPHILS # (AUTO) 2.7 /CMM (1.8-8.9); NEUTROPHILS % (AUTO) 56.5 % (43.0-81.0); PLATELET COUNT (AUTO) 198 /CMM (150-450); RED BLOOD CELL COUNT(AUTO) 4.34 MIL/uL (4.5-6.0); WHITE BLOOD COUNT (AUTO) 4.8 K/uL (4.3-11.0)
--- NOTE | 2020-08-05 06:40 | NUR ---
MS RN NOTE INFORMED IMELDA HUGHES DNP THAT PATIENT IS STILL IN PAIN AFTER RECEIVING NORCO 10, PAIN STILL IN FELT IN A CONSISTENT -10/10. ACHING/ TIGHTNESS, "FEELS TENSE LIKE IF YOUR COLD". ALSO INFORMED HIM OF DR. REN , PAIN MANAGEMENT MD'S ORDERS. AWAITING CALL BACK FROM IMELDA HUGHES. WILL ENDORSE TO ONCOMING SHIFT.
--- NOTE | 2020-08-05 07:30 | NUR ---
MS RN AM NOTE PATIENT IN BED. A/OX3. TOLERATING ROOM AIR. RESPIRATIONS EVEN AND UNLABORED. NO S/S SOB NOTED. PATIENT C/O LEG PAIN, WAS GIVEN PAIN MEDICATION EARLIER. IV ACCESS IN RIGHT HAND #22 FLUSHES WELL, SITE CLEAR, SEE NURSING FLOW SHEET FOR SKIN ISSUES. CARDIAC DIET. USES URINALS. BED IS LOW AND LOCKED, HOB ELEVATED 30DEG, SIDE RAILS UP X2, CALL LIGHT WITHIN REACH. WILL CONTINUE TO MONITOR.
[2020-08-05 08:00] VITALS: BP 108/68
[2020-08-05] MEDS: CEPHALEXIN MONOHYDRATE 250 MG CAPSULE PO SCH ×2 (08:37→17:04)
[2020-08-05] MEDS: GABAPENTIN 300 MG CAPSULE PO SCH ×2 (08:37→17:04)
[2020-08-05] MEDS: ASPIRIN EC 81 MG TABLET.DR PO SCH (08:37)
[2020-08-05] MEDS: PANTOPRAZOLE 40 MG TABLET.DR PO SCH (08:37)
[2020-08-05] MEDS: CLOPIDOGREL BISULFATE 75 MG TABLET PO SCH (08:37)
[2020-08-05] MEDS: MULTIVITAMINS,THERAGRAN 1 UDTAB TABLET PO SCH (08:37)
[2020-08-05] MEDS: LIDOCAINE 5% (PATCH) 1 EA PATCH TP PRN (08:40)
--- NOTE | 2020-08-05 09:30 | NUR ---
RN NOTES DUE MEDS GIVEN
[2020-08-05 16:00] VITALS: BP 102/76
--- NOTE | 2020-08-05 18:51 | NUR ---
MS RN CLOSING NOTE PATIENT RESTING COMFORTABLY. A/OX3. TOLERATING ROOM AIR. RESPIRATIONS EVEN AND UNLABORED. NO S/S SOB NOTED. PATIENT C/O LEG PAIN, ON AND OFF, MANAGED WITH PAIN MEDICATIONS ORDERED. IV ACCESS IN RIGHT HAND #22 FLUSHES WELL, SITE CLEAR, CARDIAC DIET. USES URINALS. BED IS LOW AND LOCKED, HOB ELEVATED 30DEG, SIDE RAILS UP X2, INDEPENDENT OF BED MOBILITY. ALL NEEDS MET. NO OTHER SIGNIFICANT CHANGE IN CONDITION. CALL LIGHT WITHIN REACH. WILL ENDORSE TO NEXT SHIFT FOR NATALYA.
[2020-08-05 20:00] VITALS: BP 119/75
[2020-08-05] MEDS: TRAZODONE 50 MG TABLET PO SCH (20:22)
[2020-08-05] MEDS: ATORVASTATIN 10 MG TABLET PO SCH (20:23)
[2020-08-05] MEDS: ENOXAPARIN SODIUM 40 MG/0.4 ML DISP.SYRIN SQ SCH (20:25)
--- NOTE | 2020-08-06 03:25 | NUR ---
RN notes In bed resting with complaint of pain and discomfort. Requested pain medication. Gave [place] 10/325, with relief. Alert and oriented. Independent of bed mobility. Vital signs wnl. No respiratory distress or shortness of breath. Breathing even and unlabored. No significant change of condition. Kept clean and dry. Will endorse to next shift for continuity of care.
[2020-08-06 04:00] VITALS: BP 90/62
[2020-08-06] MEDS: HYDROCODONE/APAP 10/325MG TABLET PO PRN ×3 (04:45→18:26)
[2020-08-06] MEDS: BLOOD SUGAR DIAGNOSTIC 1 EACH STRIP IN SCH ×4 (05:32→16:41)
[2020-08-06 06:46] LABS: BASOPHILS % (AUTO) 0.6 % (0.0-2.0); EOSINOPHILS % (AUTO) 2.1 % (0.0-6.0); HEMATOCRIT 38 % (39-51); HEMOGLOBIN 12.6 g/dL (13.5-17.5); LYMPHOCYTES # (AUTO) 1.8 /CMM (0.8-4.8); LYMPHOCYTES % (AUTO) 43.1 % (20.0-44.0); MEAN CORPUSCULAR HGB CONC 33 g/dl (31.0-36.0); MEAN CORPUSCULAR VOLUME 89 fL (80-96); MONOCYTES # (AUTO) 0.4 /CMM (0.1-1.30); MONOCYTES % (AUTO) 10.1 % (2.0-12.0); NEUTROPHILS # (AUTO) 1.8 /CMM (1.8-8.9); NEUTROPHILS % (AUTO) 44.1 % (43.0-81.0); PLATELET COUNT (AUTO) 188 /CMM (150-450); RED BLOOD CELL COUNT(AUTO) 4.23 MIL/uL (4.5-6.0); WHITE BLOOD COUNT (AUTO) 4.2 K/uL (4.3-11.0)
[2020-08-06 07:44] LABS: CALCIUM, SERUM 8.5 mg/dL (8.5-10.1); CREATININE 1.1 mg/dL (0.6-1.3); MAGNESIUM 1.8 mg/dL (1.8-2.4); PHOSPHORUS 3.2 mg/dL (2.5-4.9); POTASSIUM 3.6 mmol/L (3.5-5.1)
[2020-08-06] MEDS: PANTOPRAZOLE 40 MG TABLET.DR PO SCH (07:52)
[2020-08-06] MEDS: GABAPENTIN 300 MG CAPSULE PO SCH ×2 (09:42→16:29)
[2020-08-06] MEDS: CLOPIDOGREL BISULFATE 75 MG TABLET PO SCH (09:42)
[2020-08-06] MEDS: CEPHALEXIN MONOHYDRATE 250 MG CAPSULE PO SCH ×2 (09:42→16:29)
[2020-08-06] MEDS: ASPIRIN EC 81 MG TABLET.DR PO SCH (09:42)
[2020-08-06] MEDS: MULTIVITAMINS,THERAGRAN 1 UDTAB TABLET PO SCH (09:42)
--- NOTE | 2020-08-06 12:35 | NUR ---
Doctor Tayo mcmahan. Will keep patient NPO for procedure 08/07/20 in the afternoon. Zach Marquez RN
[2020-08-06 16:00] VITALS: BP 110/51
[2020-08-06] MEDS: busPIRone 5 MG TABLET PO SCH (16:29)
[2020-08-06 20:00] VITALS: BP 106/67
--- NOTE | 2020-08-06 20:00 | NUR ---
MS RN NOTE RECEIVED PT AWAKE IN BED. A/OX3. PT IS STABLE ON ROOM AIR. RESPIRATIONS ARE EVEN AND UNLABORED. NO SOB OR S/S OF RESPIRATORY DISTRESS NOTED. PT HAS NO COMPLAINTS OF PAIN OR DISCOMFORT AT THIS TIME. IV ACCESS IN RIGHT HAND #22 SALINE LOCKED. IV IS INTACT, PATENT, AND FLUSHING WELL. SAFETY MEASURES MAINTAINED. BED IN LOWEST LOCKED POSITION, HOB ELEVATED, SIDE RAILS UP X2. CALL LIGHT AND TABLE WITHIN REACH. WILL CONTINUE TO MONITOR.
[2020-08-06] MEDS: ENOXAPARIN SODIUM 40 MG/0.4 ML DISP.SYRIN SQ SCH (21:00)
--- NOTE | 2020-08-06 21:00 | NUR ---
PT REQUESTED SLEEP MEDICATION. RECEIVED ORDERS FROM IMELDA HUGHES DNP TO ADMINISTER TRAZADONE 50 MG PO HS. ORDERS READ BACK, ENTERED, AND CARRIED OUT. WILL CONTINUE WITH PLAN OF CARE.
[2020-08-06] MEDS: MIRTAZAPINE 15 MG TABLET PO SCH (21:38)
[2020-08-06] MEDS: ATORVASTATIN 10 MG TABLET PO SCH (21:39)
[2020-08-06] MEDS: HYDROCODONE/APAP 5/325MG TABLET PO PRN (21:51)
--- NOTE | 2020-08-06 21:51 | NUR ---
MS RN PAIN PT C/O SHARP PAIN IN BILATERAL LEGS, RATED 7/10 ON 1-10 PAIN SCALE. PT NOTED WITH FACIAL GRIMACING, RESTLESSNESS, AND IRRITABILITY. VSS. PER PT REQUEST, ADMINISTERED NORCO 5-325 MG PO Q6H PRN FOR PAIN. WILL CONTINUE TO MONITOR.
[2020-08-06] MEDS: TRAZODONE 50 MG TABLET PO SCH (22:28)
--- NOTE | 2020-08-07 | NUR ---
PT REFUSED ACCUCHECK AT THIS TIME AND STATED THAT HE "WANTED TO SLEEP." PT EDUCATION GIVEN ON RISKS AND BENEFITS OF REFUSING ACCUCHECK. WILL CONTINUE TO MONITOR.
[2020-08-07 04:00] VITALS: BP 126/66
[2020-08-07] MEDS: HYDROCODONE/APAP 5/325MG TABLET PO PRN ×2 (05:27→19:55)
[2020-08-07] MEDS: BLOOD SUGAR DIAGNOSTIC 1 EACH STRIP IN SCH ×4 (05:39→17:16)
--- NOTE | 2020-08-07 06:50 | NUR ---
MS RN CLOSING NOTE PT IS AWAKE IN BED. A/OX3. PT IS STABLE ON ROOM AIR. RESPIRATIONS ARE EVEN AND UNLABORED. NO SOB OR S/S OF RESPIRATORY DISTRESS NOTED. PT HAS NO COMPLAINTS OF PAIN OR DISCOMFORT AT THIS TIME. IV ACCESS IS INTACT, PATENT, AND FLUSHING WELL. ALL NEEDS HAVE BEEN MET. PAIN MANAGEMENT ADMINISTERED PER ORDER. SAFETY MEASURES MAINTAINED. BED IN LOWEST LOCKED POSITION, HOB ELEVATED, SIDE RAILS UP X2. CALL LIGHT AND TABLE WITHIN REACH. WILL ENDORSE TO ONCOMING NURSE FOR NATALYA.
[2020-08-07 06:52] LABS: BASOPHILS % (AUTO) 0.8 % (0.0-2.0); EOSINOPHILS % (AUTO) 2.5 % (0.0-6.0); HEMATOCRIT 40 % (39-51); HEMOGLOBIN 13.3 g/dL (13.5-17.5); LYMPHOCYTES # (AUTO) 1.7 /CMM (0.8-4.8); LYMPHOCYTES % (AUTO) 41.4 % (20.0-44.0); MEAN CORPUSCULAR HGB CONC 33 g/dl (31.0-36.0); MEAN CORPUSCULAR VOLUME 91 fL (80-96); MONOCYTES # (AUTO) 0.3 /CMM (0.1-1.30); MONOCYTES % (AUTO) 7.8 % (2.0-12.0); NEUTROPHILS # (AUTO) 1.9 /CMM (1.8-8.9); NEUTROPHILS % (AUTO) 47.5 % (43.0-81.0); PLATELET COUNT (AUTO) 198 /CMM (150-450); RED BLOOD CELL COUNT(AUTO) 4.43 MIL/uL (4.5-6.0); WHITE BLOOD COUNT (AUTO) 4.1 K/uL (4.3-11.0)
[2020-08-07 07:24] LABS: CALCIUM, SERUM 8.8 mg/dL (8.5-10.1); CREATININE 1.1 mg/dL (0.6-1.3); PHOSPHORUS 3.2 mg/dL (2.5-4.9); POTASSIUM 3.6 mmol/L (3.5-5.1)
[2020-08-07] MEDS: PANTOPRAZOLE 40 MG TABLET.DR PO SCH (07:30)
--- NOTE | 2020-08-07 08:21 | NUR ---
RN OPENING NOTED RECEIVED PATIENT ASLEEP IN BE, EASILY AROUSED - A/O X3, PT ON ROOM AIR 02 SAT AT 98%, RESPIRATIONS EVEN AND UNLABORED, NO SOB NOTED & NO RESPIRATORY DISTRESS NOTED, NO COMPLAINTS OF PAIN OR DISCOMFORT AT THIS TIME - WILL CONTINUE TO MONITOR PT IS NPO DUE TO TATUM PROCEDURE ORDERED FOR TODAY, IV ACCESS IS INTACT, PATENT, AND FLUSHING WELL. ALL SAFETY MEASURES MAINTAINED AND INTACT, BED IN LOWEST LOCKED POSITION, HOB ELEVATED, SIDE RAILS UP X2, CALL LIGHT , WILL CONTINUE TO MONITOR AND MAINTAIN NPO TILL PROCEDURE.
[2020-08-07] MEDS: CLOPIDOGREL BISULFATE 75 MG TABLET PO SCH (09:00)
[2020-08-07] MEDS: CEPHALEXIN MONOHYDRATE 250 MG CAPSULE PO SCH ×2 (09:00→16:49)
[2020-08-07] MEDS: ASPIRIN EC 81 MG TABLET.DR PO SCH (09:00)
[2020-08-07] MEDS: GABAPENTIN 300 MG CAPSULE PO SCH ×2 (09:00→16:50)
[2020-08-07] MEDS: MULTIVITAMINS,THERAGRAN 1 UDTAB TABLET PO SCH (09:00)
[2020-08-07] MEDS: busPIRone 5 MG TABLET PO SCH ×3 (09:00→16:49)
[2020-08-07 12:29] VITALS: BP 126/66
[2020-08-07] MEDS: ACETAMINOPHEN 325 MG TABLET PO PRN (15:17)
--- NOTE | 2020-08-07 18:06 | NUR ---
1504 RN NOTES MD CONTACTED DR MARTINI REGARDING THE TATUM PROCEDURE, REQUESTED TO ALLOW PT TO BE REMOVED FROM NPO ORDER AND EAT AND DRINK WATER BS LEVEL WAS 58 TAKEN AGAIN 56, PT IS BORDERLINE DIABETIC SO FOR SAFTEY PRECAUTIONS REQUESTED TO PROVIDE NOURISHMENT AND LIQUIDS, APPROVED TO REMOVE FROM NPO AND PROVIDE NOURISHMENT, PT VERY HAPPY AND AT [place] WITH THIS DECISION , ATE 100% OF LUNCH AND DINNER TRAY AND WATER, APPLE JUICE, PUDDING AND APPLE SAUCE, NO ASPIRATIONS NOTED, ALL NEEDS CARED FOR IN A TIMELY MANNER AND CALL LIGHT IN REACH, MOTHER CAME TO VISIT AND SHE WAS VERY HAPPY TO SEE HIM EATING AND DRINKING, WILL CONTINUE TO MONITOR NEEDS AND PT BEING COMPLIANT WITH CARE AND SITUATION TO HAVE TO RESCHEDULE PROCEDURE AT THIS TIME.
[2020-08-07 20:00] VITALS: BP 119/79
[2020-08-07] MEDS: MIRTAZAPINE 15 MG TABLET PO SCH (21:52)
[2020-08-07] MEDS: TRAZODONE 50 MG TABLET PO SCH (21:52)
[2020-08-07] MEDS: ATORVASTATIN 10 MG TABLET PO SCH (21:52)
[2020-08-07] MEDS: ENOXAPARIN SODIUM 40 MG/0.4 ML DISP.SYRIN SQ SCH (21:57)
[2020-08-08] VITALS (36 sets, daily range): BP systolic 98–149; BP diastolic 70–110
[2020-08-08] MEDS: BLOOD SUGAR DIAGNOSTIC 1 EACH STRIP IN SCH ×5 (00:09→23:09)
--- NOTE | 2020-08-08 00:15 | NUR ---
NOTIFIED PATIENT THAT HE HAS ORDERS FOR NPO EXCEPT MEDS POST MIDNIGHT FOR POSSIBLE TATUM PROCEDURE IN AM. PATIENT BECAME UPSET AND STATED, "I WANT TO DENY THIS PROCEDURE. IF THIS PROCEDURE WAS IMPORTANT, IT WOULD HAVE BEEN DONE THE FIRST TRY. INSTEAD THEY WANT TO PLAY WITH MY MIND AND STARVE ME." PATIENT'S RIGHTS RESPECTED. INFORMED IMELDA HUGHES. WILL INFORM ONCOMING SHIFT. ALL NEEDS ANTICIPATED.
--- NOTE | 2020-08-08 01:27 | NUR ---
RN NOTE RECEIVED PT AWAKE IN BED. ON ROOM AIR, RESPIRATIONS ARE EVEN AND UNLABORED. NO SOB OR S/S OF RESPIRATORY DISTRESS NOTED. IV ACCESS IN RIGHT HAND #22 PATENT AND INTACT. SAFETY MEASURES MAINTAINED. BED IN LOWEST LOCKED POSITION, HOB ELEVATED, SIDE RAILS UP X2. CALL LIGHT AND TABLE WITHIN REACH. ALL NEEDS ANTICIPATED. Addendum: 08/08/20 at 0128 by JOSY ANDRADE RN RECEIVING NOTE 1930
[2020-08-08] MEDS: HYDROCODONE/APAP 10/325MG TABLET PO PRN ×3 (02:43→20:31)
--- NOTE | 2020-08-08 04:00 | NUR ---
PATIENT REFUSED VITAL SIGNS CHECK AT THIS TIME. ALL RISKS AND BENEFITS EXPLAINED. STILL STRONGLY REFUSED. CALL LIGHT WITHIN REACH.
--- NOTE | 2020-08-08 05:59 | NUR ---
PATIENT REFUSED BLOOD SUGAR CHECK AT THIS TIME AND LAB DRAW. RISKS AND BENEFITS EXPLAINED. STILL STRONGLY REFUSED. CALL LIGHT WITHIN REACH.
--- NOTE | 2020-08-08 07:26 | NUR ---
RN NOTE PT SLEEPING COMFORTABLY IN BED. ON ROOM AIR, RESPIRATIONS ARE EVEN AND UNLABORED. NO SOB OR S/S OF RESPIRATORY DISTRESS NOTED. IV ACCESS IN RIGHT HAND #22 PATENT AND INTACT. SAFETY MEASURES MAINTAINED. BED IN LOWEST LOCKED POSITION, HOB ELEVATED, SIDE RAILS UP X2. CALL LIGHT AND TABLE WITHIN REACH. WILL ENDORSE TO AM SHIFT.
--- NOTE | 2020-08-08 07:55 | NUR ---
received report from shift supervisor rn nurse. patient then transferred to icu for TATUM procedure room 252. report given to
--- NOTE | 2020-08-08 09:10 | NUR ---
HAMMER FITTER received pt from [facility] nurse Alessandro ENNIS. pt awake, alert and oriented x4, pt follows commands. perrla. pt has left facial droop. pt moves rue and rle 5/5, pt flacid and contracted in lue 0/5 movement and lle 3/5 movement. Pt on room air. lung sounds clear spo2 99%. pt npo bowel sounds present. pt continent and uses urinal. pt has right upper arm 22g piv for procedure flushed and tko placed to preserve patency. vitals stable. no signs of acute distress at this time. safety measures in place. will continue to monitor. Dr Cr aware that pt back in ICU in preparation for procedure and has iv access, per procedure to be done by Dr Larsen at 12 pm. charge nurse Konrad ENNIS aware. no other orders at this time.
[2020-08-08] MEDS: MULTIVITAMINS,THERAGRAN 1 UDTAB TABLET PO SCH (10:27)
[2020-08-08] MEDS: PANTOPRAZOLE 40 MG TABLET.DR PO SCH (10:27)
[2020-08-08] MEDS: GABAPENTIN 300 MG CAPSULE PO SCH ×2 (10:27→17:49)
[2020-08-08] MEDS: busPIRone 5 MG TABLET PO SCH ×3 (10:27→17:49)
[2020-08-08] MEDS: CEPHALEXIN MONOHYDRATE 250 MG CAPSULE PO SCH ×2 (10:45→17:49)
[2020-08-08] MEDS ORDERED: MIDAZOLAM HCL 2 MG/2ML VIAL ONE (12:01)
--- NOTE | 2020-08-08 12:11 | NUR ---
RENEWABLE ENERGY CONSULTANT Dr Larsen and anesthesiologist at bedside assessing pt and talking to pt about procedure. Consent obtained by anesthesiologist. awaiting tech to start procedure.
[2020-08-08] MEDS ORDERED: GLYCOPYRROLATE 0.2 MG/ML VIAL ONE (12:15)
--- NOTE | 2020-08-08 12:15 | NUR ---
BANDOLEER PACKER Consent for TATUM signed by pt and placed in pt chart.
--- NOTE | 2020-08-08 12:20 | NUR ---
DIRECTOR OF PURCHASING TATUM procedure initiated by Dr Larsen. Anesthesiologist at bedside. pt sedated, tolerating well. vitals stable. safety measures in place. will continue to monitor.
--- NOTE | 2020-08-08 12:40 | NUR ---
ADMINISTRATIVE SERVICES COORDINATOR TATUM Procedure completed. pt given 6 mg versed, pt drowsy but arousable. vitals stable. safety measures in place. will continue to monitor.
[2020-08-08] MEDS: ASPIRIN EC 81 MG TABLET.DR PO SCH (13:18)
[2020-08-08] MEDS: CLOPIDOGREL BISULFATE 75 MG TABLET PO SCH (13:18)
--- NOTE | 2020-08-08 14:05 | NUR ---
TAVERN KEEPER Pt awake, alert and sitting up in bed feeding self lunch tray. pt tolerating well. no visible signs of aspiration noted. pt denies any pain or discomfort. vitals stable. will continue to monitor.
[2020-08-08 14:39] LABS: BASOPHILS % (AUTO) 0.5 % (0.0-2.0); EOSINOPHILS % (AUTO) 2.3 % (0.0-6.0); HEMATOCRIT 42 % (39-51); HEMOGLOBIN 13.8 g/dL (13.5-17.5); LYMPHOCYTES # (AUTO) 1.5 /CMM (0.8-4.8); MEAN CORPUSCULAR HGB CONC 33 g/dl (31.0-36.0); MEAN CORPUSCULAR VOLUME 90 fL (80-96); MONOCYTES # (AUTO) 0.4 /CMM (0.1-1.30); MONOCYTES % (AUTO) 8.5 % (2.0-12.0); NEUTROPHILS # (AUTO) 2.3 /CMM (1.8-8.9); NEUTROPHILS % (AUTO) 53.7 % (43.0-81.0); PLATELET COUNT (AUTO) 209 /CMM (150-450); RED BLOOD CELL COUNT(AUTO) 4.66 MIL/uL (4.5-6.0); WHITE BLOOD COUNT (AUTO) 4.4 K/uL (4.3-11.0)
--- NOTE | 2020-08-08 14:56 | NUR ---
BUSINESS JOB TITLES Discharge orders entered, ok to discharge per md.
[2020-08-08 15:20] LABS: CALCIUM, SERUM 8.9 mg/dL (8.5-10.1); CREATININE 1.1 mg/dL (0.6-1.3); MAGNESIUM 1.9 mg/dL (1.8-2.4); PHOSPHORUS 3.1 mg/dL (2.5-4.9); POTASSIUM 4.4 mmol/L (3.5-5.1)
--- NOTE | 2020-08-08 17:00 | NUR ---
INVOICE CODER Pt sitting up in bed feeding self dinner tray. pt tolerating well ate 100% of meal, no visible signs of aspiration. pt requests second tray awaiting delivery from kitchen. blood sugar check done bs 68, 1 carton of juice given will reassess after juice and meal completed.
[2020-08-08] MEDS: HYDROCODONE/APAP 5/325MG TABLET PO PRN (17:52)
--- NOTE | 2020-08-08 18:31 | NUR ---
NOVELTY MAKER Telephone report given to [facility] Rosario ENNIS. pt taken to [facility] 312 bed 1 via bed. pt awake, alert and oriented x4. all lines traced. vitals stable. No signs of acute distress at this time. pt reoriented to new room. safety measures in place. pt has all belongings, clothing, cell phone and auto specialty services manager at bedside. Discharge to [facility] endorsed to elly ENNIS pending authorization.
--- NOTE | 2020-08-08 18:31 | NUR ---
PHARMACY TECHNICIAN ASSISTANT blood sugar recheck done bs 137
--- NOTE | 2020-08-08 18:43 | NUR ---
RECEIVED REPORT FROM ICU FOR PATIENT TRANSFER. WILL ENDORSE TO FLOOR TECHNICIAN NURSE FOR NATALYA.
--- NOTE | 2020-08-08 18:55 | NUR ---
DIE TRIMMER Rosario RN at bedside. pt cellphone, cell phone mail carriers supervisor and eye glasses endorsed to [facility] nurse.
--- NOTE | 2020-08-08 19:15 | NUR ---
RN OPENING NOTE PATIENT IN BED AWAKE, LISTENING TO MUSIC, PATIENT IS ALERT AND ORIENTED X 4. ABLE TO MAKE NEEDS KNOWN. BREATHING EVEN AND UNLABORED TOLERATING ROOM AIR WITH 99% O2 SATURATION. NO COMPLAINS OF DISCOMFORT AT THIS TIME. SAFETY MEASURES IN PLACE: BED IN LOCKED AND LOWEST POSITION, [place] LIGHT WITHIN REACH, AND SIDE RAILS UP. WILL MONITOR PATIENT CLOSELY.
[2020-08-08] MEDS: ENOXAPARIN SODIUM 40 MG/0.4 ML DISP.SYRIN SQ SCH (21:47)
[2020-08-08] MEDS: TRAZODONE 50 MG TABLET PO SCH (21:47)
[2020-08-08] MEDS: ATORVASTATIN 10 MG TABLET PO SCH (21:47)
[2020-08-08] MEDS: MIRTAZAPINE 15 MG TABLET PO SCH (21:47)
[2020-08-09] MEDS: BLOOD SUGAR DIAGNOSTIC 1 EACH STRIP IN SCH ×2 (06:05→12:22)
--- NOTE | 2020-08-09 07:28 | NUR ---
RN CLOSING NOTE PATIENT IN BED AWAKE, PATIENT IS ALERT AND ORIENTED X 4. BREATHING EVEN AND UNLABORED TOLERATING ROOM AIR WITH 99% O2 SATURATION. NO COMPLAINS OF DISCOMFORT AT THIS TIME. SAFETY MEASURES IN PLACE: BED IN LOCKED AND LOWEST POSITION, [place] LIGHT WITHIN REACH, AND SIDE RAILS UP. NORCO AT 2030GIVEN LAST NIGHT FOR PAIN 10/10 ON MARITZA LEG. ALL NEEDS MET AND ATTENDED. ALL ORDERS CARRIED OUT. ENDORSED TO DAY SHIFT NURSE FOR NATALYA. Addendum: 08/09/20 at 0750 by JUSTIN CHIN RN BS AT 0000 WAS 97 MG/DL, AT 0600 105 MG DL
--- NOTE | 2020-08-09 07:35 | NUR ---
ms rn received on bed, awake,alert, oriented x4,not in any form of distress, respirations even and unlabored,no sob noted, stroke patient,left sided upper weakness, denies pain at this time, will monitor patient's condition.
[2020-08-09] MEDS: CLOPIDOGREL BISULFATE 75 MG TABLET PO SCH (08:19)
[2020-08-09] MEDS: CEPHALEXIN MONOHYDRATE 250 MG CAPSULE PO SCH (08:19)
[2020-08-09] MEDS: MULTIVITAMINS,THERAGRAN 1 UDTAB TABLET PO SCH (08:19)
[2020-08-09] MEDS: PANTOPRAZOLE 40 MG TABLET.DR PO SCH (08:19)
[2020-08-09] MEDS: busPIRone 5 MG TABLET PO SCH ×2 (08:19→12:22)
[2020-08-09] MEDS: ASPIRIN EC 81 MG TABLET.DR PO SCH (08:19)
[2020-08-09] MEDS: GABAPENTIN 300 MG CAPSULE PO SCH (08:19)
--- NOTE | 2020-08-09 08:35 | NUR ---
ms rucker breakfast served,due med given,tolerated well.
[2020-08-09] MEDS: HYDROCODONE/APAP 10/325MG TABLET PO PRN (09:27)
[2020-08-09] MEDS ORDERED: METOPROLOL TARTRATE INJ 5 MG/5 ML AMPUL ONE (13:27)
[2020-08-09] MEDS ORDERED: NITROGLYCERIN 0.4 MG/TAB BOTTLE ONE (13:27)
[2020-08-09] MEDS ORDERED: IOHEXOL-350 100 ML VIAL IV ONE ×2 (13:27→14:13)
[2020-08-09] MEDS ORDERED: CT SWABBABLE VALVE TRANS SET 1 EA INFUS.SET MC ONE (13:27)
[2020-08-09] MEDS ORDERED: IV NS 0.9% 250 ML IV ONE (13:27)
--- NOTE | 2020-08-09 13:30 | NUR ---
ms rn patient went down for cta.
[2020-08-09] MEDS ORDERED: NITROGLYCERIN 0.4 MG/TAB BOTTLE SL ONE (14:00)
--- NOTE | 2020-08-09 14:00 | NUR ---
ms rn came back from procedure, will ready for d/c.
[2020-08-09] MEDS: METOPROLOL TARTRATE INJ 5 MG/5 ML AMPUL IVP PRN ×2 (14:13→14:18)
[2020-08-09 14:18] VITALS: BP 100/52
--- NOTE | 2020-08-09 14:30 | NUR ---
ms rn patient getting ready for discharge, refused to take a picture of left left buttock/hip w/ a dry wound w/ scab.
--- NOTE | 2020-08-09 15:25 | NUR ---
ms rucker gave report to Erickson rucker from [facility],all needs attended.
--- NOTE | 2020-08-09 15:30 | NUR ---
[facility] rn patient transferred to [facility],no distress noted,all needs attended.
[2020-08-09] MEDS ORDERED: GABA300C PO (17:13)
[2020-08-09] MEDS ORDERED: TRAZ-252 PO (17:13)
[2020-08-09] MEDS ORDERED: CLOP75TA15 PO (17:13)
[2020-08-09] MEDS ORDERED: BUSP5TAB3 PO (17:13)
[2020-08-09] MEDS ORDERED: MIRT-121 PO (17:13)
[2020-08-09] MEDS ORDERED: CARV6.25 PO (17:15)
== END 2020-08-09 15:40 | DRG 45 ==
LOC: ER 14:31 → TELE1 20:20 → MEDSG1 08-02 10:35 → ICU 08-08 07:46 → TELE1 08-08 08:51 → MEDSG1 08-08 09:01 → ICU 08-08 09:05 → MED 08-08 19:12
PROVIDERS: ADMIT Nurse Practitioner Acute Care; ATTEND Nurse Practitioner Acute Care
PROC: B246ZZ4 Ultrasonography of Right and Left Heart, Transesophageal (ICD-10-PCS; principal; 2020-08-08)
DX: I63.212 Cerebral infarction due to unspecified occlusion or stenosis of left vertebral artery (principal); G93.41 Metabolic encephalopathy; D68.59 Other primary thrombophilia; G93.89 Other specified disorders of brain; E44.0 Moderate protein-calorie malnutrition; I42.8 Other cardiomyopathies; F20.0 Paranoid schizophrenia; I50.22 Chronic systolic (congestive) heart failure; I11.0 Hypertensive heart disease with heart failure; I69.354 Hemiplegia and hemiparesis following cerebral infarction affecting left non-dominant side; Z20.822 Contact with and (suspected) exposure to COVID-19; E78.5 Hyperlipidemia, unspecified; Z68.24 Body mass index [BMI] 24.0-24.9, adult; G89.0 Central pain syndrome; I25.10 Atherosclerotic heart disease of native coronary artery without angina pectoris; N39.0 Urinary tract infection, site not specified; K62.3 Rectal prolapse; Z79.82 Long term (current) use of aspirin; Z79.899 Other long term (current) drug therapy; Z91.19 Patient's noncompliance with other medical treatment and regimen; Z95.828 Presence of other vascular implants and grafts; G89.4 Chronic pain syndrome; Z74.09 Other reduced mobility
CPT/HCPCS: 36415; 70496-TC; 70498-TC; 70551-TC; 71045-TC; 75574; 80048-TC; 80061-TC; 80076-TC; 81001; 82962-TC; 83735-TC; 84100-TC; 84484-TC; 85025-TC; 85610-TC; 85730-TC; 87081-TC; 87086-TC; 87186-TC; 92526; 92611-TC; 93312-TC; 97112-TC; 97530-TC; C9803; G0378; J1650; J2250; J2270; J2405; J3490; J7030; J7040; J7050; Q9967; U0003